=== PATIENT | female | born 1940 | race Caucasian/White ===

== ENCOUNTER 2016-05-24 18:01 | Inpatient (IN) | payer MEDICARE, BC ==
[2016-05-24] MEDS ORDERED: 0.9 % SODIUM CHLORIDE 1,000 ML BAG IV ONE (18:45)
[2016-05-24] MEDS ORDERED: ONDANSETRON HCL IV 4 MG/2 ML VIAL IVP ONE (18:46)
--- NOTE | 2016-05-24 19:01 | Emergency Department Record ---
History of Present Illness - General Chief complaint: Vomiting Stated complaint: VOMITING Time Seen by Provider: 05/24/16 18:45 Source: Patient, Family, EMS Mode of Arrival: EMS Limitations: No limitations - History of Present Illness Initial comments: pt has had intractable vomiting and abd pain since this am. she has vomited many times and now is vomiting bile. she has also had a fever and abd pain across her lower abd that is constant. other family members had si,ilar symptoms earlier in the week but they had no ap and they did have diarrhea. pt tried a compazine suppository but it did no good MD complaint: Abdominal pain, Nausea, Vomiting Onset/Timin -: Hour(s) Description of Vomiting: Bilious Associated Abdominal Pain: Yes Location: LLQ, RLQ, Diffuse Severity: Moderate Severity scale (1-10): 6 Quality: Aching, Constant Improves with: None Worsens with: Vomiting Context: Sick contacts Associated Symptoms: Fever/chills - Related Data Home Medications Medication Instructions Recorded Confirmed Last Taken Albuterol Sulfate [Proair Hfa] 1 - 2 puff IH .EVERY 4-6 HOURS PRN 05/01/1405/2405/24/16 Atorvastatin Calcium [Lipitor] 40 mg PO DAILY 05/01/14 05/24/16 05/24/16 Budesonide/Formoterol Fumarate 2 puff IH BID 05/01/14 05/24/16 05/24/16 [Symbicort 160-4.5 Mcg Inhaler] Insulin Glargine,Hum.rec.anlog 65 units SQ QAM 05/01/14 05/24/16 05/24/16 [Lantus Solostar] Levothyroxine Sodium [Synthroid] 175 mcg PO DAILYTHY 05/01/14 05/24/16 05/24/16 Lisinopril [Zestril] 20 mg PO DAILY 05/01/14 05/24/16 05/24/16 Nebivolol HCl [Bystolic] 20 mg PO BID 05/01/14 05/24/16 05/24/16 Ropinirole HCl 2 tab PO DAILY 05/01/14 05/24/16 05/24/16 Previous Rx's Medication Instructions Recorded Baclofen [Lioresal] 10 mg PO TID PRN #0 tab 03/05/16 Clopidogrel Bisulfate [Plavix] 75 mg PO DAILY tab 07/16/15 Oxycodone HCl/Acetaminophen 1 udtab PO QID #60 tablet 07/16/15 [Percocet 5mg/325mg] Allergies Allergy/AdvReac Type Severity Reaction Status Date / Time adenosine Allergy Intermediate HYPERSENSIT Verified 05/24/16 18:10 IVITY alprazolam [From XANAX] Allergy Intermediate RASH Verified 05/24/16 18:10 azithromycin [AZITHROMYCIN] Allergy Intermediate RASH Verified 05/24/16 18:10 cefaclor Allergy Intermediate RASH Verified 05/24/16 18:10 clonidine HCl [From CATAPRES] Allergy Intermediate RASH Verified 05/24/16 18:10 codeine [CODEINE] Allergy Intermediate RASH Verified 05/24/16 18:10 diclofenac sodium Allergy Intermediate RASH Verified 05/24/16 18:10 [From VOLTAREN] dipyridamole Allergy Intermediate RASH Verified 05/24/16 18:10 [From PERSANTINE] doxycycline calcium Allergy Intermediate RASH Verified 05/24/16 18:10 [From VIBRAMYCIN] doxycycline hyclate Allergy Intermediate RASH Verified 05/24/16 18:10 [From VIBRAMYCIN] doxycycline monohydrate Allergy Intermediate RASH Verified 05/24/16 18:10 [From VIBRAMYCIN] duloxetine HCl Allergy Intermediate HIVES Verified 05/24/16 18:10 [From CYMBALTA] estrogens, conjugated Allergy Intermediate HIVES Verified 05/24/16 18:10 [From PREMARIN] gabapentin [From NEURONTIN] Allergy Intermediate HIVES Verified 05/24/16 18:10 hydrocodone [HYDROCODONE] Allergy Intermediate HIVES Verified 05/24/16 18:10 lactose [LACTOSE] Allergy Intermediate HIVES Verified 05/24/16 18:10 pentoxifylline [From TRENTAL] Allergy Intermediate HIVES Verified 05/24/16 18:10 pregabalin [From LYRICA] Allergy Intermediate HIVES Verified 05/24/16 18:10 promethazine HCl Allergy Intermediate HIVES Verified 05/24/16 18:10 [From PHENERGAN] sulfamethoxazole Allergy Intermediate HIVES Verified 05/24/16 18:10 [From SEPTRA] tramadol HCl [From ULTRAM] Allergy Intermediate HIVES Verified 05/24/16 18:10 trimethoprim [From SEPTRA] Allergy Intermediate HIVES Verified 05/24/16 18:10 venlafaxine HCl Allergy Intermediate HIVES Verified 05/24/16 18:10 [From EFFEXOR] Travel Screening - Travel/Exposure Within Last 30 Days Have you traveled within the last 30 days?: No - Travel/Exposure Within Last Year Have you traveled outside the [place] in the last year?: No - Additonal Travel Details Have you been exposed to anyone with a communicable illness?: No - Travel Symptoms Symptom Screening: None Review of Systems Reviewed: No additional complaints except as noted below Constitutional: Reports: As per HPI. Denies: Chills, Fever, Malaise, Night sweats, Weakness, Weight change Eyes: Reports: As per HPI. Denies: Eye discharge, Eye pain, Photophobia, Vision change ENT: Reports: As per HPI. Denies: Congestion, Dental pain, Ear pain, Epistaxis , Hearing loss, Throat pain Respiratory: Reports: As per HPI. Denies: Cough, Dyspnea, Hemoptysis, Stridor, Wheezes Cardiovascular: Reports: As per HPI. Denies: Arrhythmia, Chest pain, Dyspnea on exertion, Edema, Murmurs, Orthopnea, Palpitations, Paroxysmal nocturnal dyspnea, Rheumatic Fever, Syncope Endocrine: Reports: As per HPI. Denies: Fatigue, Heat or cold intolerance, Polydipsia, Polyuria Gastrointestinal: Reports: As per HPI. Denies: Abdominal pain, Constipation, Diarrhea, Hematemesis, Hematochezia, Melena, Nausea, Vomiting Genitourinary: Reports: As per HPI. Denies: Abnormal menses, Discharge, Dyspareunia, Dysuria, Frequency, Hematuria, Incontinence, Retention, Urgency Musculoskeletal: Reports: As per HPI. Denies: Arthralgia, Back pain, Gout, Joint swelling, Myalgia, Neck pain Skin: Reports: As per HPI. Denies: Bruising, Change in color, Change in hair/ nails, Lesions, Pruritus, Rash Neurological: Reports: As per HPI. Denies: Abnormal gait, Confusion, Headache, Numbness, Paresthesias, Seizure, Tingling, Tremors, Vertigo, Weakness Psychiatric: Reports: As per HPI. Denies: Anxiety, Auditory hallucinations, Depression, Homicidal thoughts, Suicidal thoughts, Visual hallucinations Hematological/Lymphatic: Reports: As per HPI. Denies: Anemia, Blood Clots, Easy bleeding, Easy bruising, Swollen glands Past Medical History - SOCIAL HISTORY Smoking Status: Former smoker Alcohol Use: None Drug Use: None - RESPIRATORY Hx Respiratory Disorders: Yes Hx Asthma: Yes Hx Bronchitis: Yes Hx Dyspnea: Yes Hx Pneumonia: Yes Hx Pulmonary Embolism: Yes (x3) - CARDIOVASCULAR Hx Cardio Disorders: Yes Hx Abnormal EKG: Yes Hx Cardiac Cath: Yes Hx Chest Pain: Yes Hx CHF: Yes Hx Deep Vein Thrombosis: Yes (Legs, abd) Hx Heart Attack: Yes Hx Hypertension: Yes Hx Vascular Disease: Yes - NEURO Hx Neuro Disorders: Yes Hx TIA: Yes (x2) - GI Hx GI Disorders: Yes Hx GI Bleed: Yes Hx Reflux: Yes Hx Irritable Bowel: Yes Hx Rectal Bleeding: Yes - Hx Genitourinary Disorders: Yes Hx Bladder Problem: Yes Comment:: Renal stent bilat, left one is plugged - ENDOCRINE Hx Endocrine Disorders: Yes Hx Diabetes: Yes Hx Thyroid Disease: Yes - MUSCULOSKELETAL Hx Musculoskeletal Disorders: Yes Hx Arthritis: Yes - PSYCH Hx Psych Problems: Yes Hx Anxiety: Yes Hx Depression: Yes - HEMATOLOGY/ONCOLOGY Hx Hematology/Oncology Disorders: Yes Hx Anemia: Yes Family Medical History Any Significant Family History?: Yes Hx Cancer: Mother Hx Heart Disease: Father, Mother Hx HTN: Father, Mother Physical Exam - General General Appearance: Alert, Oriented x3, Cooperative, Mild distress - Head Head exam: Normal inspection - Eye Eye exam: Normal appearance, PERRL, EOMI Pupils: Normal accommodation - ENT ENT exam: Normal exam, Mucous membranes moist, Normal external ear exam, Normal orophraynx Ear exam: Normal external inspection. negative: External canal tenderness Nasal Exam: Normal inspection. negative: Discharge, Sinus tenderness Mouth exam: Normal external inspection, Tongue normal Teeth exam: Normal inspection. negative: Dental caries Throat exam: Normal inspection. negative: Tonsillar erythema, Tonsillar exudate - Neck Neck exam: Normal inspection, Full ROM. negative: Tenderness - Respiratory Respiratory exam: Normal lung sounds bilaterally. negative: Respiratory distress - Cardiovascular Cardiovascular Exam: Regular rate, Normal rhythm, Normal heart sounds - GI/Abdominal GI/Abdominal exam: Soft, Normal bowel sounds, Tenderness - Rectal Rectal exam: Deferred - exam: Deferred - Extremities Extremities exam: Normal inspection, Full ROM, Normal capillary refill. negative: Tenderness - Back Back exam: Reports: Normal inspection, Full ROM. Denies: Muscle spasm, Rash noted, Tenderness - Neurological Neurological exam: Alert, CN II-XII intact, Normal gait, Oriented X3 - Psychiatric Psychiatric exam: Normal affect, Normal mood - Skin Skin exam: Dry, Intact, Normal color, Warm Course Vital Signs 05/24/16 18:16 Temperature 100.5 F H Pulse Rate 76 Respiratory 20 Rate Blood Pressure 188/69 Pulse Ox 96 - Reevaluation(s) Reevaluation #1: 05/24/16 19:03 care turned over to dr flynn Medical Decision Making - Lab Data Result diagrams: 05/24/16 18:45 05/24/16 18:45 Disposition Forms: Patient Portal Access
[2016-05-24] MEDS ORDERED: ACETAMINOPHEN 325 MG TAB PO ONE (19:40)
[2016-05-24 19:45] LABS: HEMATOCRIT 36.4 % (35.0-47.0); HEMOGLOBIN 12.3 gm/dl (11.6-16.0); MEAN CELL VOLUME 89.9 fl (81-97); MEAN CORPUSCULAR HEMOGLOBIN 30.4 pg (27-33); MEAN CORPUSCULAR HGB CONC 33.8 g/dl (32-36); MEAN PLATELET VOLUME 11.5 fl (7.4-10.4); PLATELET COUNT 190 K/uL (130-400); RED BLOOD COUNT 4.05 M/uL (3.80-5.40); RED CELL DISTRIBUTION WIDTH 13.9 % (11.5-14.5); URINE APPEARANCE CLEAR; URINE BILIRUBIN NEGATIVE (NEGATIVE); URINE BLOOD SMALL (NEGATIVE); URINE COLOR YELLOW; URINE GLUCOSE (UA) NEGATIVE (NEGATIVE); URINE KETONE NEGATIVE (NEGATIVE); URINE LEUKOCYTE ESTERASE NEGATIVE (NEGATIVE); URINE NITRITE NEGATIVE (NEGATIVE); URINE UROBILINOGEN 0.2 E.U./dL (0.20 - 1.00); WHITE BLOOD COUNT W/O DIFF 5.9 K/uL (4.2-12.2)
[2016-05-24 19:52] LABS: URINE BACTERIA NONE SEEN; URINE EPITHELIAL CELLS NONE SEEN (FEW); URINE RBC 0 - 2 (NONE SEEN)
[2016-05-24 19:57] LABS: ALB/GLOB RATIO 1.3 (1.1-1.8); ALBUMIN 3.9 gm/dL (3.5-5.0); ALKALINE PHOSPHATASE 96 U/L (38-126); ALT/SGPT 22 U/L (9-52); ANION GAP 14.3 (7-16); AST/SGOT 22 U/L (14-36); BILIRUBIN,TOTAL 0.85 mg/dL (0.2-1.3); BLOOD UREA NITROGEN 15 mg/dL (7-17); CARBON DIOXIDE 21.7 mmol/L (22-30); CREATININE 0.8 mg/dL (0.52-1.04); EST GLOMERULAR FILTRATION RATE > 60 ml/min; GLUCOSE,RANDOM 173 mg/dL (70-110); LIPASE 11 U/L (23-300); TOTAL PROTEIN 6.8 gm/dL (6.3-8.2)
[2016-05-24 19:59] LABS: PLATELET ESTIMATE NORMAL (NORMAL)
[2016-05-24] MEDS ORDERED: LORAZEPAM 2 MG/ML VIAL IV ONE (20:08)
--- NOTE | 2016-05-24 20:11 | Emergency Department Record ---
History of Present Illness - General Chief complaint: Vomiting Stated complaint: VOMITING Time Seen by Provider: 05/24/16 18:45 Source: Patient, Family, EMS Mode of Arrival: EMS Limitations: No limitations - History of Present Illness MD complaint: Abdominal pain, Nausea, Vomiting Onset/Timin -: Hour(s) Description of Vomiting: Bilious Associated Abdominal Pain: Yes Location: LLQ, RLQ, Diffuse Severity: Moderate Severity scale (1-10): 6 Quality: Aching, Constant Improves with: None Worsens with: Vomiting Context: Sick contacts Associated Symptoms: Fever/chills - Related Data Home Medications Medication Instructions Recorded Confirmed Last Taken Albuterol Sulfate [Proair Hfa] 1 - 2 puff IH .EVERY 4-6 HOURS PRN 05/01/1405/2405/24/16 Atorvastatin Calcium [Lipitor] 40 mg PO DAILY 05/01/14 05/24/16 05/24/16 Budesonide/Formoterol Fumarate 2 puff IH BID 05/01/14 05/24/16 05/24/16 [Symbicort 160-4.5 Mcg Inhaler] Insulin Glargine,Hum.rec.anlog 65 units SQ QAM 05/01/14 05/24/16 05/24/16 [Lantus Solostar] Levothyroxine Sodium [Synthroid] 175 mcg PO DAILYTHY 05/01/14 05/24/16 05/24/16 Lisinopril [Zestril] 20 mg PO DAILY 05/01/14 05/24/16 05/24/16 Nebivolol HCl [Bystolic] 20 mg PO BID 05/01/14 05/24/16 05/24/16 Ropinirole HCl 2 tab PO DAILY 05/01/14 05/24/16 05/24/16 Previous Rx's Medication Instructions Recorded Baclofen [Lioresal] 10 mg PO TID PRN #0 tab 07/16/15 Clopidogrel Bisulfate [Plavix] 75 mg PO DAILY tab 07/16/15 Oxycodone HCl/Acetaminophen 1 udtab PO QID #60 tablet 07/16/15 [Percocet 5mg/325mg] Allergies Allergy/AdvReac Type Severity Reaction Status Date / Time adenosine Allergy Intermediate HYPERSENSIT Verified 05/24/16 18:10 IVITY alprazolam [From XANAX] Allergy Intermediate RASH Verified 05/24/16 18:10 azithromycin [AZITHROMYCIN] Allergy Intermediate RASH Verified 05/24/16 18:10 cefaclor Allergy Intermediate RASH Verified 05/24/16 18:10 clonidine HCl [From CATAPRES] Allergy Intermediate RASH Verified 05/24/16 18:10 codeine [CODEINE] Allergy Intermediate RASH Verified 05/24/16 18:10 diclofenac sodium Allergy Intermediate RASH Verified 05/24/16 18:10 [From VOLTAREN] dipyridamole Allergy Intermediate RASH Verified 05/24/16 18:10 [From PERSANTINE] doxycycline calcium Allergy Intermediate RASH Verified 05/24/16 18:10 [From VIBRAMYCIN] doxycycline hyclate Allergy Intermediate RASH Verified 05/24/16 18:10 [From VIBRAMYCIN] doxycycline monohydrate Allergy Intermediate RASH Verified 05/24/16 18:10 [From VIBRAMYCIN] duloxetine HCl Allergy Intermediate HIVES Verified 05/24/16 18:10 [From CYMBALTA] estrogens, conjugated Allergy Intermediate HIVES Verified 05/24/16 18:10 [From PREMARIN] gabapentin [From NEURONTIN] Allergy Intermediate HIVES Verified 05/24/16 18:10 hydrocodone [HYDROCODONE] Allergy Intermediate HIVES Verified 05/24/16 18:10 lactose [LACTOSE] Allergy Intermediate HIVES Verified 05/24/16 18:10 pentoxifylline [From TRENTAL] Allergy Intermediate HIVES Verified 05/24/16 18:10 pregabalin [From LYRICA] Allergy Intermediate HIVES Verified 05/24/16 18:10 promethazine HCl Allergy Intermediate HIVES Verified 05/24/16 18:10 [From PHENERGAN] sulfamethoxazole Allergy Intermediate HIVES Verified 05/24/16 18:10 [From SEPTRA] tramadol HCl [From ULTRAM] Allergy Intermediate HIVES Verified 05/24/16 18:10 trimethoprim [From SEPTRA] Allergy Intermediate HIVES Verified 05/24/16 18:10 venlafaxine HCl Allergy Intermediate HIVES Verified 05/24/16 18:10 [From EFFEXOR] Travel Screening - Travel/Exposure Within Last 30 Days Have you traveled within the last 30 days?: No - Travel/Exposure Within Last Year Have you traveled outside the [place] in the last year?: No - Additonal Travel Details Have you been exposed to anyone with a communicable illness?: No - Travel Symptoms Symptom Screening: None Review of Systems Constitutional: Reports: As per HPI. Denies: Chills, Fever, Malaise, Night sweats, Weakness, Weight change Eyes: Reports: As per HPI. Denies: Eye discharge, Eye pain, Photophobia, Vision change ENT: Reports: As per HPI. Denies: Congestion, Dental pain, Ear pain, Epistaxis , Hearing loss, Throat pain Respiratory: Reports: As per HPI. Denies: Cough, Dyspnea, Hemoptysis, Stridor, Wheezes Cardiovascular: Reports: As per HPI. Denies: Arrhythmia, Chest pain, Dyspnea on exertion, Edema, Murmurs, Orthopnea, Palpitations, Paroxysmal nocturnal dyspnea, Rheumatic Fever, Syncope Endocrine: Reports: As per HPI. Denies: Fatigue, Heat or cold intolerance, Polydipsia, Polyuria Gastrointestinal: Reports: As per HPI. Denies: Abdominal pain, Constipation, Diarrhea, Hematemesis, Hematochezia, Melena, Nausea, Vomiting Genitourinary: Reports: As per HPI. Denies: Abnormal menses, Discharge, Dyspareunia, Dysuria, Frequency, Hematuria, Incontinence, Retention, Urgency Musculoskeletal: Reports: As per HPI. Denies: Arthralgia, Back pain, Gout, Joint swelling, Myalgia, Neck pain Skin: Reports: As per HPI. Denies: Bruising, Change in color, Change in hair/ nails, Lesions, Pruritus, Rash Neurological: Reports: As per HPI. Denies: Abnormal gait, Confusion, Headache, Numbness, Paresthesias, Seizure, Tingling, Tremors, Vertigo, Weakness Psychiatric: Reports: As per HPI. Denies: Anxiety, Auditory hallucinations, Depression, Homicidal thoughts, Suicidal thoughts, Visual hallucinations Hematological/Lymphatic: Reports: As per HPI. Denies: Anemia, Blood Clots, Easy bleeding, Easy bruising, Swollen glands Past Medical History - SOCIAL HISTORY Smoking Status: Former smoker Alcohol Use: None Drug Use: None - RESPIRATORY Hx Respiratory Disorders: Yes Hx Asthma: Yes Hx Bronchitis: Yes Hx Dyspnea: Yes Hx Pneumonia: Yes Hx Pulmonary Embolism: Yes (x3) - CARDIOVASCULAR Hx Cardio Disorders: Yes Hx Abnormal EKG: Yes Hx Cardiac Cath: Yes Hx Chest Pain: Yes Hx CHF: Yes Hx Deep Vein Thrombosis: Yes (Legs, abd) Hx Heart Attack: Yes Hx Hypertension: Yes Hx Vascular Disease: Yes - NEURO Hx Neuro Disorders: Yes Hx TIA: Yes (x2) - GI Hx GI Disorders: Yes Hx GI Bleed: Yes Hx Reflux: Yes Hx Irritable Bowel: Yes Hx Rectal Bleeding: Yes - Hx Genitourinary Disorders: Yes Hx Bladder Problem: Yes Comment:: Renal stent bilat, left one is plugged - ENDOCRINE Hx Endocrine Disorders: Yes Hx Diabetes: Yes Hx Thyroid Disease: Yes - MUSCULOSKELETAL Hx Musculoskeletal Disorders: Yes Hx Arthritis: Yes - PSYCH Hx Psych Problems: Yes Hx Anxiety: Yes Hx Depression: Yes - HEMATOLOGY/ONCOLOGY Hx Hematology/Oncology Disorders: Yes Hx Anemia: Yes Family Medical History Any Significant Family History?: Yes Hx Cancer: Mother Hx Heart Disease: Father, Mother Hx HTN: Father, Mother Physical Exam - General Limitations: No limitations Course Vital Signs 05/24/16 05/24/16 05/24/16 18:16 19:06 19:39 Temperature 100.5 F H 100.8 F H 100.8 F H Pulse Rate 76 Pulse Rate [ 81 Pulse Ox Probe] Respiratory 20 20 Rate Blood Pressure 188/69 Blood Pressure 170/50 [Right Arm] Pulse Ox 96 93 L - Reevaluation(s) Reevaluation #1: The patient is feeling a little better at this time. She no longer is nauseated but is still having intermittent AP. On exam her abdomen is soft with mild diffuse tenderness in all 4 quads. There is no guarding or rebound. 05/24/16 20:10 Reevaluation #2: The patient is feeling a little better at this time. She denies any increased pain and states her nausea is improved. I did explain to her that her lab work and CT do not indicate any pathology which could be causing her issues. Due to her persistent pain and nausea I do feel she will need to stay in the hospital overnight. I did discuss the case with Ophelia BALDWIN) and she does accept the admission for Dr. Mercedes. 05/24/16 20:22 Medical Decision Making - Data Complexity MDM Data: Labs Ordered and/or Reviewed, X-Ray Ordered and/or Reviewed (CT: No acute intraabdominal pathology.) - Lab Data Result diagrams: 05/24/16 19:20 05/24/16 19:20 Lab Results 05/24/16 05/24/16 05/24/16 Range/Units 19:20 19:20 19:20 WBC 5.9 (4.2-12.2) K/uL RBC 4.05 (3.80-5.40) M/uL Hgb 12.3 (11.6-16.0) gm/dl Hct 36.4 (35.0-47.0) % MCV 89.9 (81-97) fl MCH 30.4 (27-33) pg MCHC 33.8 (32-36) g/dl RDW 13.9 (11.5-14.5) % Plt Count 190 (130-400) K/uL MPV 11.5 H (7.4-10.4) fl Neutrophils % 90.0 H (47-80) % Band Neutrophils % 2.0 (0-5) % Lymphocytes % 5.0 L (16-45) % Monocytes % 3.0 (0-9) % Eosinophils % Not Reportable Basophils % Not Reportable Platelet Estimate Normal (NORMAL) RBC Morphology Normal Sodium 134 L (136-145) mmol/L Potassium 4.0 (3.5-5.1) mmol/L Chloride 98 (98-107) mmol/L Carbon Dioxide 21.7 L (22-30) mmol/L Anion Gap 14.3 (7-16) BUN 15 (7-17) mg/dL Creatinine 0.8 (0.52-1.04) mg/dL Estimated GFR > 60 ml/min Random Glucose 173 H (70-110) mg/dL Lactic Acid (0.7-2.1) mmol/L Calcium 8.4 L (8.5-10.1) mg/dL Total Bilirubin 0.85 (0.2-1.3) mg/dL AST 22 (14-36) U/L ALT 22 (9-52) U/L Alkaline Phosphatase 96 (38-126) U/L Total Protein 6.8 (6.3-8.2) gm/dL Albumin 3.9 (3.5-5.0) gm/dL Globulin 2.9 (1.4-4.8) gm/dL Albumin/Globulin Ratio 1.3 (1.1-1.8) Lipase 11 L (23-300) U/L Urine Color Yellow Urine Appearance Clear Urine pH 5.5 (5.0-8.0) Ur Specific [place] >= 1.030 (1.002-1.030) Urine Protein 100 mg/dl H (NEGATIVE) Urine Glucose (UA) Negative (NEGATIVE) Urine Ketones Negative (NEGATIVE) Urine Blood Small H (NEGATIVE) Urine Nitrite Negative (NEGATIVE) Urine Bilirubin Negative (NEGATIVE) Urine Urobilinogen 0.2 (0.20 - 1.00) E.U./dL Ur Leukocyte Esterase Negative (NEGATIVE) Urine RBC 0 - 2 (NONE SEEN) Urine WBC 3 - 5 (0-2/hpf) Ur Epithelial Cells None seen (FEW) Urine Bacteria None seen 05/24/16 Range/Units 19:20 WBC (4.2-12.2) K/uL RBC (3.80-5.40) M/uL Hgb (11.6-16.0) gm/dl Hct (35.0-47.0) % MCV (81-97) fl MCH (27-33) pg MCHC (32-36) g/dl RDW (11.5-14.5) % Plt Count (130-400) K/uL MPV (7.4-10.4) fl Neutrophils % (47-80) % Band Neutrophils % (0-5) % Lymphocytes % (16-45) % Monocytes % (0-9) % Eosinophils % Basophils % Platelet Estimate (NORMAL) RBC Morphology Sodium (136-145) mmol/L Potassium (3.5-5.1) mmol/L Chloride (98-107) mmol/L Carbon Dioxide (22-30) mmol/L Anion Gap (7-16) BUN (7-17) mg/dL Creatinine (0.52-1.04) mg/dL Estimated GFR ml/min Random Glucose (70-110) mg/dL Lactic Acid 1.8 (0.7-2.1) mmol/L Calcium (8.5-10.1) mg/dL Total Bilirubin (0.2-1.3) mg/dL AST (14-36) U/L ALT (9-52) U/L Alkaline Phosphatase (38-126) U/L Total Protein (6.3-8.2) gm/dL Albumin (3.5-5.0) gm/dL Globulin (1.4-4.8) gm/dL Albumin/Globulin Ratio (1.1-1.8) Lipase (23-300) U/L Urine Color Urine Appearance Urine pH (5.0-8.0) Ur Specific [place] (1.002-1.030) Urine Protein (NEGATIVE) Urine Glucose (UA) (NEGATIVE) Urine Ketones (NEGATIVE) Urine Blood (NEGATIVE) Urine Nitrite (NEGATIVE) Urine Bilirubin (NEGATIVE) Urine Urobilinogen (0.20 - 1.00) E.U./dL Ur Leukocyte Esterase (NEGATIVE) Urine RBC (NONE SEEN) Urine WBC (0-2/hpf) Ur Epithelial Cells (FEW) Urine Bacteria Disposition Disposition: Admit Clinical Impression: Abdominal pain in female Vomiting Qualifiers: Vomiting type: unspecified Vomiting Intractability: intractable Nausea presence : with nausea Qualified Code(s): R11.2 - Nausea with vomiting, unspecified Disposition: Still a Patient at [facility] Decision to Admit: Admit from ER Decision to Admit Date: 05/24/16 Decision to Admit Time: 20:24 Accepting Physician: Mago Time Discussed w/Accepting Physician: 20:24 Condition: (2) Stable Forms: Patient Portal Access Time of Disposition: 20:24
[2016-05-24] MEDS ORDERED: ACETAMINOPHEN 500 MG TABLET PO PRN (20:55)
[2016-05-24] MEDS ORDERED: ONDANSETRON HCL IV 4 MG/2 ML VIAL IVP PRN (20:55)
[2016-05-24] MEDS ORDERED: ALBUTEROL HFA 8 GM INHALER INH PRN (20:55)
[2016-05-24] MEDS ORDERED: HYDROMORPHONE HCL 1 MG/ML CPJ IVP PRN (20:55)
[2016-05-24] MEDS ORDERED: NEBIVOLOL HCL 20 MG PO SCH (22:00)
[2016-05-24] MEDS: BACLOFEN 10 MG TABLET PO PRN (22:04)
[2016-05-24] MEDS: ROPINIROLE HCL 1 MG TABLET PO SCH (22:04)
[2016-05-24] MEDS: MONTELUKAST SODIUM 10MG TABLET PO SCH (22:05)
[2016-05-25] MEDS: 0.9 % SODIUM CHLORIDE 1000ML 1,000 ML IV PRN ×2 (01:00→12:21)
[2016-05-25] MEDS: ACETAMINOPHEN 325 MG TAB PO PRN ×3 (01:50→17:01)
[2016-05-25] MEDS: LORAZEPAM 2 MG/ML VIAL IV PRN (01:54)
[2016-05-25 06:34] LABS: HEMATOCRIT 34.3 % (35.0-47.0); HEMOGLOBIN 11.3 gm/dl (11.6-16.0); MEAN CORPUSCULAR HGB CONC 32.9 g/dl (32-36); MEAN PLATELET VOLUME 11.4 fl (7.4-10.4); PLATELET COUNT 158 K/uL (130-400); RED BLOOD COUNT 3.73 M/uL (3.80-5.40); RED CELL DISTRIBUTION WIDTH 14.1 % (11.5-14.5); WHITE BLOOD COUNT W/O DIFF 5.9 K/uL (4.2-12.2)
[2016-05-25 06:43] LABS: MEAN CORPUSCULAR HEMOGLOBIN 30.2 pg (27-33)
[2016-05-25 06:50] LABS: ANION GAP 12.2 (7-16); BLOOD UREA NITROGEN 18 mg/dL (7-17); CARBON DIOXIDE 22.8 mmol/L (22-30); CREATININE 0.9 mg/dL (0.52-1.04); EST GLOMERULAR FILTRATION RATE > 60 ml/min; GLUCOSE,RANDOM 177 mg/dL (70-110)
[2016-05-25 06:53] LABS: PLATELET ESTIMATE NORMAL (NORMAL)
--- NOTE | 2016-05-25 07:26 | CT SCAN REPORT ---
EXAM: ABDOMEN AND PELVIS CT WITHOUT IV CONTRAST HISTORY: VOMITING SINCE MIDNIGHT, GENERALIZED ABDOMINAL PAIN. TECHNIQUE: Contiguous axial images from the lung bases to the symphysis pubis were obtained without IV contrast. Comparison: Abdomen and pelvis CT 04/13/04. FINDINGS: The lung bases are clear. Evaluation of the solid abdominal visceral organs is compromised due to lack of IV contrast, however, the visualized liver and spleen are unremarkable. Unilocular cysts in the left kidney, the largest is in the upper pole measuring 6.3 cm. The right kidney is unremarkable. The adrenals and pancreas are normal. The gallbladder is surgically absent. The stomach is limited due to nondistention. The small bowel loops are of normal caliber with no bowel wall thickening. There is moderate fecal material throughout the colon with no colonic wall thickening or adjacent inflammation. There is a tiny ventral abdominal wall hernia just cephalad to the umbilicus containing a knuckle of transverse colon. No evidence of incarceration, strangulation or inflammation. The defect measures 11 mm. Severe aortoiliac calcification. Surgical clips in the retroperitoneum. Renal artery stents. No free intraperitoneal fluid or adenopathy. The uterus is absent. No pelvic mass. No lytic or blastic osseous lesion. IMPRESSION: 1. NO ACUTE INFLAMMATORY PROCESS OF THE ABDOMEN OR PELVIS. NO INTESTINAL OBSTRUCTION. 2. TINY VENTRAL ABDOMINAL WALL HERNIA JUST CEPHALAD TO THE UMBILICUS CONTAINING A KNUCKLE OF TRANSVERSE COLON WALL. NO INCARCERATION OR STRANGULATION. 3. SEVERE VASCULAR CALCIFICATION. JOB NUMBER: [id number] MTDD
[2016-05-25] MEDS: LEVOTHYROXINE SODIUM 175 MCG TABLET PO SCH (08:12)
[2016-05-25] MEDS: NEBIVOLOL 20 MG PO SCH ×2 (09:31→21:31)
[2016-05-25] MEDS: PANTOPRAZOLE SODIUM IV 40 MG VIAL IV SCH (09:32)
[2016-05-25] MEDS: LISINOPRIL 20 MG TABLET PO SCH (09:32)
[2016-05-25] MEDS: CLOPIDOGREL 75MG TABLET PO SCH (09:32)
[2016-05-25] MEDS ORDERED: ROPINIROLE HCL PO SCH (10:00)
[2016-05-25 13:24] LABS: INFLUENZA A NEGATIVE (NEGATIVE); INFLUENZA B NEGATIVE (NEGATIVE)
--- NOTE | 2016-05-25 13:25 | History & Physical ---
History of Present Illness - Date of Service Date of Service for History & Physical: 05/25/16 - History of Present Illness Admitting Diagnosis: 1. Nausea and intractable vomiting with Abdominal Pain. History of Present Illness: 76yo female with CC of vomiting with diffuse abdominal pain. She has history of CHF, T2DM, hypothyroidism, GERD, IBS, DVt, PE, on exterminator helper anticoagulation therapy, HLD, renal stenosis, CAD and peripheral artery disease. Patient presented to the ED with 2 days of nausea and vomiting. She developed some lower abdominal pain as well. She started to run a fever and was not able to keep any fluids down so her brought her to the ED. While in the ED, patient had improvement in nausea/vomiting with zofran and fever was improved with tylenol. Labs showed sodium slightly low at 134 but were otherwise unremarkable. CT abdomen showed small ventral hernia without any signs of obstruction, strangulation or incarceration. CT abdomen was otherwise normal. She was made NPO, started on IV normal saline, admitted for intractable vomiting. 05/26/16- Patient is feeling a little improved since admission. She has not had any further vomiting and her nausea is improved. She ran a fever last night but has not felt warm or chilled today. She continues to have some abdominal pain across her lower abdomen. She is not able to describe the pain but says it is not sharp. She has history of IBS and has followed with Dr. Felipe in the past. Was told at one point she had colitis found on colonoscopy. She reports a dry cough that started yesterday and has gotten worse today. The cough is dry and she denies nasal congestion, runny nose, sore throat or PND. She reports several family members having epsiodes of N/V/D and fever last week. She has not had any diarrhea but has been having normal stools. PCP: Cathryn Travel Screening - Travel/Exposure Within Last 30 Days Have you traveled within the last 30 days?: No - Travel/Exposure Within Last Year Have you traveled outside the [place] in the last year?: No - Additonal Travel Details Have you been exposed to anyone with a communicable illness?: No - Travel Symptoms Symptom Screening: Vomiting, Lack of Appetite Review of Systems Constitutional: Reports: Chills, Fever. Denies: Malaise, Night sweats, Weakness , Weight change Eyes: Denies: Eye discharge, Eye pain, Photophobia, Vision change ENT: Denies: Congestion, Dental pain, Ear pain, Epistaxis, Hearing loss, Throat pain Respiratory: Reports: Cough. Denies: Dyspnea, Hemoptysis, Stridor, Wheezes Cardiovascular: Denies: Arrhythmia, Chest pain, Dyspnea on exertion, Edema, Murmurs, Orthopnea, Palpitations, Paroxysmal nocturnal dyspnea, Rheumatic Fever , Syncope Endocrine: Denies: Fatigue, Heat or cold intolerance, Polydipsia, Polyuria Gastrointestinal: Reports: Abdominal pain, Nausea, Vomiting. Denies: Constipation, Diarrhea, Hematemesis, Hematochezia, Melena Genitourinary: Denies: Abnormal menses, Discharge, Dyspareunia, Dysuria, Frequency, Hematuria, Incontinence, Retention, Urgency Musculoskeletal: Denies: Arthralgia, Back pain, Gout, Joint swelling, Myalgia, Neck pain Skin: Denies: Bruising, Change in color, Change in hair/nails, Lesions, Pruritus , Rash Neurological: Denies: Abnormal gait, Confusion, Headache, Numbness, Paresthesias , Seizure, Tingling, Tremors, Vertigo, Weakness Psychiatric: Denies: Anxiety, Auditory hallucinations, Depression, Homicidal thoughts, Suicidal thoughts, Visual hallucinations Hematological/Lymphatic: Reports: Blood Clots. Denies: Anemia, Easy bleeding, Easy bruising, Swollen glands Past Medical History - SOCIAL HISTORY Smoking Status: Former smoker Alcohol Use: None Drug Use: None - RESPIRATORY Hx Respiratory Disorders: Yes Hx Asthma: Yes Hx Bronchitis: Yes Hx Dyspnea: Yes Hx Pneumonia: Yes Hx Pulmonary Embolism: Yes (x3) - CARDIOVASCULAR Hx Cardio Disorders: Yes Hx Abnormal EKG: Yes Hx Cardiac Cath: Yes Hx Chest Pain: Yes Hx CHF: Yes (2 years ago) Hx Deep Vein Thrombosis: Yes (Legs, abdomen) Hx Edema: Yes (lymphedema of bilateral LE, wears compression stockings) Hx Heart Attack: Yes Hx Hypertension: Yes Hx Pacemaker/Defib: Yes Hx Vascular Disease: Yes - NEURO Hx Neuro Disorders: Yes Hx Neuropathy: Yes Hx TIA: Yes (x2) - GI Hx GI Disorders: Yes Hx GI Bleed: Yes Hx Reflux: Yes Hx Irritable Bowel: Yes Hx Rectal Bleeding: Yes - Hx Genitourinary Disorders: Yes Hx Bladder Problem: Yes Comment:: Renal stent bilat, left one is plugged - ENDOCRINE Hx Endocrine Disorders: Yes Hx Diabetes: Yes Hx Thyroid Disease: Yes - MUSCULOSKELETAL Hx Musculoskeletal Disorders: Yes Hx Arthritis: Yes Comment:: restless leg syndrome - PSYCH Hx Psych Problems: Yes Hx Anxiety: Yes Hx Depression: Yes - HEMATOLOGY/ONCOLOGY Hx Hematology/Oncology Disorders: Yes Hx Anemia: Yes Family Medical History Any Significant Family History?: Yes Hx Cancer: Mother Hx Heart Disease: Father, Mother Hx HTN: Father, Mother H&P Meds/Allergies - Allergies Allergies: Allergies Allergy/AdvReac Type Severity Reaction Status Date / Time adenosine Allergy Intermediate HYPERSENSIT Verified 05/24/16 18:10 IVITY alprazolam [From XANAX] Allergy Intermediate RASH Verified 05/24/16 18:10 azithromycin [AZITHROMYCIN] Allergy Intermediate RASH Verified 05/24/16 18:10 cefaclor Allergy Intermediate RASH Verified 05/24/16 18:10 clonidine HCl [From CATAPRES] Allergy Intermediate RASH Verified 05/24/16 18:10 codeine [CODEINE] Allergy Intermediate RASH Verified 05/24/16 18:10 diclofenac sodium Allergy Intermediate RASH Verified 05/24/16 18:10 [From VOLTAREN] dipyridamole Allergy Intermediate RASH Verified 05/24/16 18:10 [From PERSANTINE] doxycycline calcium Allergy Intermediate RASH Verified 05/24/16 18:10 [From VIBRAMYCIN] doxycycline hyclate Allergy Intermediate RASH Verified 05/24/16 18:10 [From VIBRAMYCIN] doxycycline monohydrate Allergy Intermediate RASH Verified 05/24/16 18:10 [From VIBRAMYCIN] duloxetine HCl Allergy Intermediate HIVES Verified 05/24/16 18:10 [From CYMBALTA] estrogens, conjugated Allergy Intermediate HIVES Verified 05/24/16 18:10 [From PREMARIN] gabapentin [From NEURONTIN] Allergy Intermediate HIVES Verified 05/24/16 18:10 hydrocodone [HYDROCODONE] Allergy Intermediate HIVES Verified 05/24/16 18:10 lactose [LACTOSE] Allergy Intermediate HIVES Verified 05/24/16 18:10 pentoxifylline [From TRENTAL] Allergy Intermediate HIVES Verified 05/24/16 18:10 pregabalin [From LYRICA] Allergy Intermediate HIVES Verified 05/24/16 18:10 promethazine HCl Allergy Intermediate HIVES Verified 05/24/16 18:10 [From PHENERGAN] sulfamethoxazole Allergy Intermediate HIVES Verified 05/24/16 18:10 [From SEPTRA] tramadol HCl [From ULTRAM] Allergy Intermediate HIVES Verified 05/24/16 18:10 trimethoprim [From SEPTRA] Allergy Intermediate HIVES Verified 05/24/16 18:10 venlafaxine HCl Allergy Intermediate HIVES Verified 05/24/16 18:10 [From EFFEXOR] - Home Medications Home Medications Medication Instructions Recorded Confirmed Last Taken Albuterol Sulfate [Proair Hfa] 1 - 2 puff IH .EVERY 4-6 HOURS PRN 05/01/1405/2405/24/16 Atorvastatin Calcium [Lipitor] 40 mg PO DAILY 05/01/14 05/24/16 05/24/16 Budesonide/Formoterol Fumarate 2 puff IH BID 05/01/14 05/24/16 05/24/16 [Symbicort 160-4.5 Mcg Inhaler] Insulin Glargine,Hum.rec.anlog 65 units SQ QAM 05/01/14 05/24/16 05/24/16 [Lantus Solostar] Levothyroxine Sodium [Synthroid] 175 mcg PO DAILYTHY 05/01/14 05/24/16 05/24/16 Lisinopril [Zestril] 20 mg PO DAILY 05/01/14 05/24/16 05/24/16 Nebivolol HCl [Bystolic] 20 mg PO BID 05/01/14 05/24/16 05/24/16 Ropinirole HCl 2 tab PO QHS 05/01/14 05/24/16 05/24/16 Montelukast Sodium [Singulair] 10 mg PO QHS 05/24/16 05/24/16 05/22/16 22:00 10 Previous Rx's Medication Instructions Recorded Baclofen [Lioresal] 10 mg PO TID PRN #0 tab 07/16/15 Clopidogrel Bisulfate [Plavix] 75 mg PO DAILY tab 07/16/15 Oxycodone HCl/Acetaminophen 1 udtab PO QID #60 tablet 07/16/15 [Percocet 5mg/325mg] - Active Medications Active Medications: Current Medications Acetaminophen (Tylenol 325mg) 650 mg PO Q6H PRN PRN Reason: TEMP/PAIN Last Admin: 05/25/16 09:33 Dose: 650 mg Albuterol Sulfate (Ventolin Hfa) 2 puff INH Q4H PRN PRN Reason: DIFFICULTY IN BREATHING Baclofen (Lioresal) 10 mg PO TID PRN PRN Reason: Spasms Last Admin: 05/24/16 22:04 Dose: 10 mg Clopidogrel Bisulfate (Plavix) 75 mg PO DAILY [facility] Last Admin: 05/25/16 09:32 Dose: 75 mg Hydromorphone HCl (Dilaudid) 0.5 mg IVP Q4H PRN PRN Reason: Analgesia Last Admin: 05/24/16 22:34 Dose: 0.5 mg Sodium Chloride () 1,000 mls @ 100 mls/hr IV .Q10H PRN PRN Reason: LARGE VOLUME IV Last Admin: 05/25/16 12:21 Dose: 100 mls/hr Insulin Detemir (Levemir Flextouch) 65 unit SQ 1400 [facility] Levothyroxine Sodium (Synthroid) 175 mcg PO DAILYTHY [facility] Last Admin: 05/25/16 08:12 Dose: 175 mcg Lisinopril (Zestril) 20 mg PO DAILY [facility] Last Admin: 05/25/16 09:32 Dose: 20 mg Lorazepam (Ativan) 1 mg IV Q8H PRN PRN Reason: ANXIETY Last Admin: 05/25/16 01:54 Dose: 1 mg Montelukast Sodium (Singulair) 10 mg PO QHS [facility] Last Admin: 05/24/16 22:05 Dose: Not Given Ondansetron HCl (Zofran) 4 mg IVP Q4H PRN PRN Reason: NAUSEA Pantoprazole Sodium (Protonix Iv) 40 mg IV DAILY [facility] Last Admin: 05/25/16 09:32 Dose: 40 mg Patient Own Med: Nebivolol 20 Mg ( Bystolic) 1 each PO BID [facility] Last Admin: 05/25/16 09:31 Dose: 1 each Ropinirole HCl (Requip) 2 mg PO QHS [facility] Last Admin: 05/24/16 22:04 Dose: 2 mg Physical Exam - Vital Signs Vital Signs: Vital Signs - Last 24 Hrs Temp Pulse Resp BP Pulse Ox 05/25/16 09:50 20 05/25/16 09:00 99.5 F 65 20 195/82 94 L 05/25/16 05:30 98.1 F 64 20 173/67 95 05/25/16 03:55 99.7 F H 05/25/16 03:00 101.3 F H 05/25/16 01:50 102.1 F H 05/25/16 01:00 101.6 F H 05/24/16 23:56 100.3 F H 05/24/16 22:55 100.8 F H 64 20 155/53 95 05/24/16 20:55 99.0 F 76 20 166/71 95 - General General Appearance: Alert, Oriented x3, Cooperative, No acute distress Limitations: No limitations - Head Head exam: Normal inspection - Eye Eye exam: Normal appearance, PERRL, EOMI Pupils: Normal accommodation - ENT ENT exam: Normal exam, Mucous membranes moist, Normal external ear exam, Normal orophraynx Ear exam: Normal external inspection. negative: External canal tenderness Nasal Exam: Normal inspection. negative: Discharge, Sinus tenderness Mouth exam: Normal external inspection, Tongue normal Teeth exam: Normal inspection. negative: Dental caries Throat exam: Normal inspection. negative: Tonsillar erythema, Tonsillar exudate - Neck Neck exam: Normal inspection, Full ROM. negative: Tenderness - Respiratory Respiratory exam: Normal lung sounds bilaterally. negative: Respiratory distress, Wheezes - Cardiovascular Cardiovascular Exam: Regular rate, Normal rhythm, Normal heart sounds Peripheral Pulses: 2+: Radial (R), Radial (L), Dorsalis Pedis (R), Dorsalis Pedis (L) - GI/Abdominal GI/Abdominal exam: Soft, Normal bowel sounds, Tenderness (mildly TTP LLQ and RLQ ). negative: Distended - Rectal Rectal exam: Deferred - exam: Deferred - Extremities Extremities exam: Normal inspection, Full ROM, Normal capillary refill. negative: Tenderness - Back Back exam: Reports: Normal inspection, Full ROM. Denies: Muscle spasm, Rash noted, Tenderness - Neurological Neurological exam: Alert, CN II-XII intact, Normal gait, Oriented X3 - Psychiatric Psychiatric exam: Normal affect, Normal mood - Skin Skin exam: Dry, Intact, Normal color, Warm Results - Labs Result Diagrams: 05/26/16 06:24 05/26/16 10:24 Labs Last 24 Hours: Laboratory Results - last 24 hr 05/25/16 05/25/16 05/25/16 06:00 06:00 06:00 WBC 5.9 RBC 3.73 L Hgb 11.3 L Hct 34.3 L MCV 92.0 MCH 30.2 MCHC 32.9 RDW 14.1 Plt Count 158 MPV 11.4 H Neutrophils % 90.0 H Lymphocytes % 5.0 L Monocytes % 5.0 Eosinophils % Not Reportable Basophils % Not Reportable Platelet Estimate Normal RBC Morphology Normal Sodium 134 L Potassium 4.0 Chloride 99 Carbon Dioxide 22.8 Anion Gap 12.2 BUN 18 H Creatinine 0.9 Estimated GFR > 60 Random Glucose 177 H Calcium 7.9 L Lipase < 10 L - Imaging and Cardiology CT scan - abdomen Status: Report reviewed (small ventral hernia not strangulated, incarcerated or obstructing) VTE H&P Assessment - Risk for VTE Risk for VTE: No Risk Level: Very Low Risk Assessment Date: 05/25/16 Risk Assessment Time: 11:00 VTE Orders Placed or Will Be Placed: No VTE Reason for No Prophylaxis: Not Indicated (on longterm anticoagulation) Plan - Detailed Diagnosis and Plan (1) Vomiting Current Visit: Yes Status: Acute Qualifiers: Vomiting type: unspecified Vomiting Intractability: intractable Nausea presence: with nausea Qualified Code(s): R11.2 - Nausea with vomiting , unspecified Base Code: R11.10 - VOMITING, UNSPECIFIED Comment: 05/25/16- Improved with zofran. Suspect viral gastroenteritis with history of family members having similar issues this week. CTA was negative for an acute process. -Will advance to clear liquids -continue gentle IV hydration with NS run at 75cc/hr with CHF until oral intake has improved -continue zofran 4mg IVP q4H prn vomiting (2) Abdominal pain Current Visit: Yes Status: Acute Qualifiers: Abdominal location: lower abdomen, unspecified Qualified Code(s): R10.30 - Lower abdominal pain, unspecified Base Code: R10.9 - UNSPECIFIED ABDOMINAL PAIN Comment: 05/25/16- Stable. CTA showed small ventral hernia but was otherwise negative for an acute process. Will consult GI, Dr. Menjivar, with possible history of ischemic colitis and significant history of peripheral arterial disease. -will advance diet to clear liquid and monitor for worsening pain -Will continue dilaudid 1mg IV q4H prn severe pain (3) Cough Current Visit: Yes Status: Acute Base Code: R05 - COUGH Comment: 05/25/16- Patient is now reporting dry cough without SOB or TERRENCE. -Will get CXR with temp of 102 over night -blood cultures obtained and pending -influenza panel pending (4) Fever Current Visit: Yes Status: Acute Qualifiers: Fever type: unspecified Qualified Code(s): R50.9 - Fever, unspecified Base Code: R50.9 - FEVER, UNSPECIFIED Comment: 05/25/16- Tmax of 102.1 upon last night improved with tylenol. Suspect viral gastroenteritis. -blood cultures obtained -will order influenza -will get CXR with new onset cough -continue tylenol PO Q4H prn fever (5) CHF (congestive heart failure) Current Visit: No Status: Acute Qualifiers: Congestive heart failure type: unspecified congestive heart failure type Congestive heart failure chronicity: acute on chronic Qualified Code(s): I50.9 - Heart failure, unspecified Base Code: I50.9 - HEART FAILURE, UNSPECIFIED Comment: 05/25/16- Stable. No evidence of fluid overload. -obtain weight daily -continue home medications (6) T2DM (type 2 diabetes mellitus) Current Visit: Yes Status: Acute Qualifiers: Diabetes mellitus complication status: without complication Diabetes mellitus longterm insulin use: with exterminator helper use Qualified Code(s): E11.9 - Type 2 diabetes mellitus without complications; Z79.4 - long term acute care registered nurse ( current) use of insulin Base Code: E11.9 - TYPE 2 DIABETES MELLITUS WITHOUT COMPLICATIONS Comment: 05/25/16- Stable. Will continue home medications and accucheck BID (7) DVT prophylaxis Current Visit: Yes Status: Acute Base Code: [id number] - Comment: 05/25/16- Patient is currently on Plavix daily and has filter placed. -will encourage frequent ambulation -will add SCD's while in bed (8) Full code status Current Visit: Yes Status: Acute Base Code: Z78.9 - OTHER SPECIFIED HEALTH STATUS Comment: 05/25/16- Patient is full code
[2016-05-25] MEDS ORDERED: LEVEMIR FLEXTOUCH 100 UNIT/ML INSULIN PEN SQ SCH (14:00)
[2016-05-25] MEDS: BENZONATATE 100 MG CAPSULE PO PRN (14:24)
[2016-05-25] MEDS: MONTELUKAST SODIUM 10MG TABLET PO SCH (21:31)
[2016-05-25] MEDS: ROPINIROLE HCL 1 MG TABLET PO SCH (21:31)
[2016-05-25] MEDS ORDERED: 0.9 % SODIUM CHLORIDE 1000ML 1,000 ML IV PRN (22:46)
[2016-05-26] MEDS: LEVOTHYROXINE SODIUM 175 MCG TABLET PO SCH (06:05)
[2016-05-26 06:37] LABS: BASO % 0.2 % (0-6); EOS % 1.2 % (0-6); GRAN % 73.6 % (47-80); HEMATOCRIT 33.9 % (35.0-47.0); HEMOGLOBIN 11.6 gm/dl (11.6-16.0); LYMPH % 13.6 % (16-45); MEAN CELL VOLUME 92.9 fl (81-97); MEAN CORPUSCULAR HGB CONC 34.2 g/dl (32-36); MEAN PLATELET VOLUME 11.8 fl (7.4-10.4); MONO % 11.4 % (0-9); PLATELET COUNT 131 K/uL (130-400); RED BLOOD COUNT 3.65 M/uL (3.80-5.40); RED CELL DISTRIBUTION WIDTH 14.1 % (11.5-14.5); WHITE BLOOD COUNT W/O DIFF 4.9 K/uL (4.2-12.2)
[2016-05-26 06:39] LABS: MEAN CORPUSCULAR HEMOGLOBIN 31.7 pg (27-33)
[2016-05-26] MEDS: CLOPIDOGREL 75MG TABLET PO SCH ×2 (08:09→09:55)
[2016-05-26] MEDS: LISINOPRIL 20 MG TABLET PO SCH ×2 (08:10→09:55)
[2016-05-26] MEDS: PANTOPRAZOLE SODIUM IV 40 MG VIAL IV SCH ×2 (08:10→09:55)
[2016-05-26] MEDS: NEBIVOLOL 20 MG PO SCH ×3 (08:11→21:45)
[2016-05-26 10:39] LABS: ALB/GLOB RATIO 1.2 (1.1-1.8); ALBUMIN 3.4 gm/dL (3.5-5.0); ALKALINE PHOSPHATASE 99 U/L (38-126); ALT/SGPT 41 U/L (9-52); ANION GAP 10.3 (7-16); AST/SGOT 43 U/L (14-36); BILIRUBIN,TOTAL 0.66 mg/dL (0.2-1.3); BLOOD UREA NITROGEN 17 mg/dL (7-17); CARBON DIOXIDE 23.7 mmol/L (22-30); CREATININE 0.7 mg/dL (0.52-1.04); EST GLOMERULAR FILTRATION RATE > 60 ml/min; GLUCOSE,RANDOM 118 mg/dL (70-110); TOTAL PROTEIN 6.3 gm/dL (6.3-8.2)
[2016-05-26] MEDS: LORAZEPAM 2 MG/ML VIAL IV PRN ×2 (11:48→23:13)
[2016-05-26] MEDS: ACETAMINOPHEN 325 MG TAB PO PRN ×2 (11:56→21:43)
[2016-05-26] MEDS: BENZONATATE 100 MG CAPSULE PO PRN (11:56)
--- NOTE | 2016-05-26 12:02 | Physician Progress Note ---
Subjective - Date Date of Physician Progress Note: 05/26/16 - Subjective Subjective Comment: Patient feeling about the same as yesterday. Has not had any more vomiting and nausea is improved. Tolerating her clear liquid diet without worsening abdominal pain. Pain in the lower abdomen has resolved but now having some soreness in the upper abdomen. She had a normal BM last night without blood. She continue to feel somewhat warm and then chilled at times and reports some generalized aches. She says her cough improved with the tessalon perles. She has not had any mucus production, SOB, or TERRENCE. Objective - Vital Signs Vital Signs: Vital Signs - Last 24 Hrs Temp Pulse Resp BP BP Pulse Ox 05/26/16 10:00 98.2 F 64 18 157/67 96 05/26/16 06:13 56 L 20 154/88 98 05/26/16 05:00 97.6 F 53 L 20 202/93 94 L 05/26/16 00:26 97.8 F 56 L 20 189/84 95 05/25/16 21:00 52 L 20 05/25/16 20:00 98.2 F 52 L 20 157/69 94 L 05/25/16 17:00 97.1 F L 57 L 18 185/64 91 L 05/25/16 13:00 97.7 F 61 18 151/76 96 - General General Appearance: Alert, Oriented x3, Cooperative, No acute distress Limitations: No limitations - Head Head exam: Normal inspection - Eye Eye exam: Normal appearance, PERRL, EOMI Pupils: Normal accommodation - ENT ENT exam: Normal exam, Mucous membranes moist, Normal external ear exam, Normal orophraynx Ear exam: Normal external inspection. negative: External canal tenderness Nasal Exam: Normal inspection. negative: Discharge, Sinus tenderness Mouth exam: Normal external inspection, Tongue normal Teeth exam: Normal inspection. negative: Dental caries Throat exam: Normal inspection. negative: Tonsillar erythema, Tonsillar exudate - Neck Neck exam: Normal inspection, Full ROM. negative: Tenderness - Respiratory Respiratory exam: Normal lung sounds bilaterally. negative: Respiratory distress, Wheezes - Cardiovascular Cardiovascular Exam: Regular rate, Normal rhythm, Normal heart sounds Peripheral Pulses: 2+: Radial (R), Radial (L), Dorsalis Pedis (R), Dorsalis Pedis (L) - GI/Abdominal GI/Abdominal exam: Soft, Normal bowel sounds. negative: Distended, Tenderness - Rectal Rectal exam: Deferred - exam: Deferred - Extremities Extremities exam: Normal inspection, Full ROM, Normal capillary refill. negative: Tenderness - Back Back exam: Reports: Normal inspection, Full ROM. Denies: Muscle spasm, Rash noted, Tenderness - Neurological Neurological exam: Alert, CN II-XII intact, Normal gait, Oriented X3 - Psychiatric Psychiatric exam: Normal affect, Normal mood - Skin Skin exam: Dry, Intact, Normal color, Warm Assessment and Plan - Assessment and Plan (1) Vomiting Current Visit: Yes Status: Acute Qualifiers: Vomiting type: unspecified Vomiting Intractability: intractable Nausea presence: with nausea Qualified Code(s): R11.2 - Nausea with vomiting , unspecified Base Code: R11.10 - VOMITING, UNSPECIFIED Comment: 05/26/16- Resolved. Patient has not had any further emesis since coming to the floor. Tolerating clear liquids. Suspect viral gastroenteritis with history of family members having similar issues this week. CTA was negative for an acute process. Labs are unremarkable. -Will advance to full liquid diet -will saline lock as she is having adequate po intake of fluids now. -continue zofran 4mg IVP q4H prn vomiting (2) Abdominal pain Current Visit: Yes Status: Acute Qualifiers: Abdominal location: lower abdomen, unspecified Qualified Code(s): R10.30 - Lower abdominal pain, unspecified Base Code: R10.9 - UNSPECIFIED ABDOMINAL PAIN Comment: 05/26/16- Improved. CTA showed small ventral hernia but was otherwise negative for an acute process. Dr. Menjivar evaluated patient. recommends continuing to advance diet as tolerating. suspect the generalized abdominal soreness she is reporting is 2/2 vomiting. -will advance diet to full liquid and monitor for worsening pain -Will continue dilaudid 1mg IV q4H prn severe pain (3) Cough Current Visit: Yes Status: Acute Base Code: R05 - COUGH Comment: 05/26/16- Improved. Influenza panel was negative. CXr negative for acute process. WBC count wnl range. Patient denies SOB, TERRENCE and cough remains non-productive. Suspect viral etiology. -Will continue supportive care with rest, hydration, and tessalon perles as needed for cough suppression -blood cultures obtained and pending (4) Fever Current Visit: Yes Status: Acute Qualifiers: Fever type: unspecified Qualified Code(s): R50.9 - Fever, unspecified Base Code: R50.9 - FEVER, UNSPECIFIED Comment: 05/26/16- Resolved. WBC count remains within normal range. Influenza and CXR negative. Suspect viral gastroenteritis. -blood cultures still pending -continue tylenol PO Q4H prn fever (5) CHF (congestive heart failure) Current Visit: No Status: Acute Qualifiers: Congestive heart failure type: unspecified congestive heart failure type Congestive heart failure chronicity: acute on chronic Qualified Code(s): I50.9 - Heart failure, unspecified Base Code: I50.9 - HEART FAILURE, UNSPECIFIED Comment: 05/26/16- Stable. No evidence of fluid overload. 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 Glucose of 39 improved to 109 following juice administration. Likely due to decreased PO intake over the past 24H. -Decrease levemir to 45 units this afternoon -Continue BID accu checks and prn (7) DVT prophylaxis Current Visit: Yes Status: Acute Base Code: [id number] - Comment: 05/26/16- Patient is currently on Plavix daily and has filter placed. -will encourage frequent ambulation -will add SCD's while in bed (8) Full code status Current Visit: Yes Status: Acute Base Code: Z78.9 - OTHER SPECIFIED HEALTH STATUS Comment: 05/26/16- Patient is full code Results - Labs Result Diagrams: 05/26/16 06:24 05/26/16 10:24 Labs Last 24 Hours: Laboratory Results - last 24 hr 05/25/16 05/25/16 05/26/16 13:05 17:00 06:24 WBC 4.9 RBC 3.65 L Hgb 11.6 Hct 33.9 L MCV 92.9 MCH 31.7 MCHC 34.2 RDW 14.1 Plt Count 131 MPV 11.8 H Gran % 73.6 Lymphocytes % 13.6 L Monocytes % 11.4 H Eosinophils % 1.2 Basophils % 0.2 Sodium Potassium Chloride Carbon Dioxide Anion Gap BUN Creatinine Estimated GFR POC Glucose 114 H Random Glucose Calcium Total Bilirubin AST ALT Alkaline Phosphatase Total Protein Albumin Globulin Albumin/Globulin Ratio Influenza Type A Ag Negative Influenza Type B Ag Negative 05/26/16 05/26/16 05/26/16 07:45 08:10 09:05 WBC RBC Hgb Hct MCV MCH MCHC RDW Plt Count MPV Gran % Lymphocytes % Monocytes % Eosinophils % Basophils % Sodium Potassium Chloride Carbon Dioxide Anion Gap BUN Creatinine Estimated GFR POC Glucose 39 L* 42 L* 67 L Random Glucose Calcium Total Bilirubin AST ALT Alkaline Phosphatase Total Protein Albumin Globulin Albumin/Globulin Ratio Influenza Type A Ag Influenza Type B Ag 05/26/16 10:24 WBC RBC Hgb Hct MCV MCH MCHC RDW Plt Count MPV Gran % Lymphocytes % Monocytes % Eosinophils % Basophils % Sodium 136 Potassium 4.2 Chloride 102 Carbon Dioxide 23.7 Anion Gap 10.3 BUN 17 Creatinine 0.7 Estimated GFR > 60 POC Glucose Random Glucose 118 H Calcium 8.5 Total Bilirubin 0.66 AST 43 H ALT 41 Alkaline Phosphatase 99 Total Protein 6.3 Albumin 3.4 L Globulin 2.9 Albumin/Globulin Ratio 1.2 Influenza Type A Ag Influenza Type B Ag DVT/PE Assessment - Risk for VTE Risk for VTE: No Risk Level: Very Low Risk Assessment Date: 05/25/16 Risk Assessment Time: 11:00 VTE Orders Placed or Will Be Placed: No VTE Reason for No Prophylaxis: Not Indicated (on penitentiary anticoagulation) - Active Medicaitons Current Medications: Current Medications Acetaminophen (Tylenol 325mg) 650 mg PO Q6H PRN PRN Reason: TEMP/PAIN Last Admin: 05/25/16 17:01 Dose: 650 mg Albuterol Sulfate (Ventolin Hfa) 2 puff INH Q4H PRN PRN Reason: DIFFICULTY IN BREATHING Baclofen (Lioresal) 10 mg PO TID PRN PRN Reason: Spasms Last Admin: 05/24/16 22:04 Dose: 10 mg Benzonatate (Tessalon) 200 mg PO TID PRN PRN Reason: COUGH Last Admin: 05/25/16 14:24 Dose: 200 mg Clopidogrel Bisulfate (Plavix) 75 mg PO DAILY [facility] Last Admin: 05/26/16 09:55 Dose: Not Given Hydromorphone HCl (Dilaudid) 0.5 mg IVP Q4H PRN PRN Reason: Analgesia Last Admin: 05/24/16 22:34 Dose: 0.5 mg Insulin Detemir (Levemir Flextouch) 45 unit SQ 1400 [facility] Levothyroxine Sodium (Synthroid) 175 mcg PO DAILYTHY [facility] Last Admin: 05/26/16 06:05 Dose: 175 mcg Lisinopril (Zestril) 20 mg PO DAILY [facility] Last Admin: 05/26/16 09:55 Dose: Not Given Lorazepam (Ativan) 1 mg IV Q8H PRN PRN Reason: ANXIETY Last Admin: 05/26/16 11:48 Dose: 1 mg Montelukast Sodium (Singulair) 10 mg PO QHS [facility] Last Admin: 05/25/16 21:31 Dose: 10 mg Ondansetron HCl (Zofran) 4 mg IVP Q4H PRN PRN Reason: NAUSEA Pantoprazole Sodium (Protonix Iv) 40 mg IV DAILY [facility] Last Admin: 05/26/16 09:55 Dose: Not Given Patient Own Med: Nebivolol 20 Mg ( Bystolic) 1 each PO BID [facility] Last Admin: 05/26/16 09:55 Dose: Not Given Ropinirole HCl (Requip) 2 mg PO QHS [facility] Last Admin: 05/25/16 21:31 Dose: 2 mg AMI Plan - Labs Result Diagrams: 05/26/16 06:24 05/26/16 10:24
[2016-05-26] MEDS: LEVEMIR FLEXTOUCH 100 UNIT/ML INSULIN PEN SQ SCH (15:00)
[2016-05-26] MEDS ORDERED: NYSTATIN 15 GM TUBE TOP PRN (18:32)
[2016-05-26] MEDS: MONTELUKAST SODIUM 10MG TABLET PO SCH (21:43)
[2016-05-26] MEDS: BACLOFEN 10 MG TABLET PO PRN (21:44)
[2016-05-26] MEDS: ROPINIROLE HCL 1 MG TABLET PO SCH (21:45)
[2016-05-26] MEDS ORDERED: LISINOPRIL 20 MG TABLET PO ONE (22:00)
[2016-05-27] MEDS: LEVOTHYROXINE SODIUM 175 MCG TABLET PO SCH (06:09)
[2016-05-27 06:31] LABS: BASO % 0.4 % (0-6); EOS % 2.7 % (0-6); GRAN % 68.1 % (47-80); HEMOGLOBIN 11.7 gm/dl (11.6-16.0); LYMPH % 17.1 % (16-45); MEAN CELL VOLUME 90.9 fl (81-97); MEAN CORPUSCULAR HEMOGLOBIN 30.4 pg (27-33); MEAN CORPUSCULAR HGB CONC 33.4 g/dl (32-36); MEAN PLATELET VOLUME 11.7 fl (7.4-10.4); MONO % 11.7 % (0-9); PLATELET COUNT 173 K/uL (130-400); RED BLOOD COUNT 3.85 M/uL (3.80-5.40); RED CELL DISTRIBUTION WIDTH 13.7 % (11.5-14.5); WHITE BLOOD COUNT W/O DIFF 4.8 K/uL (4.2-12.2)
[2016-05-27 06:34] LABS: ALB/GLOB RATIO 1.3 (1.1-1.8); ALBUMIN 3.5 gm/dL (3.5-5.0); ALKALINE PHOSPHATASE 104 U/L (38-126); ALT/SGPT 51 U/L (9-52); ANION GAP 12.2 (7-16); AST/SGOT 57 U/L (14-36); BILIRUBIN,TOTAL 0.76 mg/dL (0.2-1.3); BLOOD UREA NITROGEN 13 mg/dL (7-17); CARBON DIOXIDE 19.8 mmol/L (22-30); CREATININE 0.7 mg/dL (0.52-1.04); EST GLOMERULAR FILTRATION RATE > 60 ml/min; GLUCOSE,RANDOM 168 mg/dL (70-110); TOTAL PROTEIN 6.2 gm/dL (6.3-8.2)
[2016-05-27] MEDS: NEBIVOLOL 20 MG PO SCH (09:27)
[2016-05-27] MEDS: CLOPIDOGREL 75MG TABLET PO SCH (09:27)
[2016-05-27] MEDS: PANTOPRAZOLE SODIUM IV 40 MG VIAL IV SCH (09:38)
[2016-05-27] MEDS: LISINOPRIL 20 MG TABLET PO SCH (09:42)
[2016-05-27] MEDS ORDERED: NYSTATIN 15 GM POWDER TP PRN (13:57)
--- NOTE | 2016-05-27 14:10 | Discharge Summary ---
Providers Discharge Summary Date: 05/27/16 Date of admission: 05/24/16 20:43 Expected Date of Discharge: 05/27/16 Attending physician: SEBASTIAN DO Primary care physician: Sola Lockett Consults: Consult Orders 05/25/16 14:29 Consult NOW Consulting Provider: NUNU STEPHENS Physician Instructions: Reason For Exam: abdominal pain; history of ischemic colitis Physical Exam - Vital Signs Vital Signs: Vital Signs - Last 24 Hrs Temp Pulse Resp BP Pulse Ox 05/27/16 09:31 98.5 F 60 18 164/79 98 05/27/16 08:20 20 05/27/16 06:59 57 L 20 208/89 96 05/27/16 05:00 97.9 F 58 L 20 209/100 95 05/26/16 23:02 98.0 F 60 20 198/79 95 05/26/16 21:00 62 20 05/26/16 20:15 98.1 F 62 20 200/87 95 05/26/16 17:25 165/106 05/26/16 16:45 98.1 F 61 18 201/79 95 - General General Appearance: Alert, Oriented x3, Cooperative, No acute distress Limitations: No limitations - Head Head exam: Normal inspection - Eye Eye exam: Normal appearance, PERRL, EOMI Pupils: Normal accommodation - ENT ENT exam: Normal exam, Mucous membranes moist, Normal external ear exam, Normal orophraynx Ear exam: Normal external inspection. negative: External canal tenderness Nasal Exam: Normal inspection. negative: Discharge, Sinus tenderness Mouth exam: Normal external inspection, Tongue normal Teeth exam: Normal inspection. negative: Dental caries Throat exam: Normal inspection. negative: Tonsillar erythema, Tonsillar exudate - Neck Neck exam: Normal inspection, Full ROM. negative: Tenderness - Respiratory Respiratory exam: Normal lung sounds bilaterally. negative: Respiratory distress, Wheezes - Cardiovascular Cardiovascular Exam: Regular rate, Normal rhythm, Normal heart sounds Peripheral Pulses: 2+: Radial (R), Radial (L), Dorsalis Pedis (R), Dorsalis Pedis (L) - GI/Abdominal GI/Abdominal exam: Soft, Normal bowel sounds. negative: Distended, Tenderness - Rectal Rectal exam: Deferred - exam: Deferred - Extremities Extremities exam: Normal inspection, Full ROM, Normal capillary refill. negative: Tenderness - Back Back exam: Reports: Normal inspection, Full ROM. Denies: Muscle spasm, Rash noted, Tenderness - Neurological Neurological exam: Alert, CN II-XII intact, Normal gait, Oriented X3 - Psychiatric Psychiatric exam: Normal affect, Normal mood - Skin Skin exam: Dry, Intact, Normal color, Warm Hospitalization - Hospitalization Admission Diagnosis: 1. Nausea and intractable vomiting with Abdominal Pain. - Problem List/Discharge Diagnosis (1) Vomiting Status: Acute Discharge Diagnosis: Vomiting type: unspecified Vomiting Intractability: intractable Nausea presence: with nausea Qualified Code(s): R11.2 - Nausea with vomiting , unspecified Base Code: R11.10 - VOMITING, UNSPECIFIED Comment: 05/27/16- Resolved. Patient has not had any further emesis since coming to the floor. Tolerating bland diet. Suspect viral gastroenteritis with history of family members having similar issues this week. CTA was negative for an acute process. Labs are unremarkable. -Will have her continue to advance diet as tolerating -She has follow up appointment with PCP on (2) Abdominal pain Status: Acute Discharge Diagnosis: Abdominal location: lower abdomen, unspecified Qualified Code(s): R10.30 - Lower abdominal pain, unspecified Base Code: R10.9 - UNSPECIFIED ABDOMINAL PAIN Comment: 05/27/16- Improved. CTA showed small ventral hernia but was otherwise negative for an acute process. Dr. Stephens evaluated patient. recommends continuing to advance diet as tolerating. suspect the generalized abdominal soreness she is reporting is 2/2 vomiting. -will have patient continue to advance diet as tolerating and return if any worsening of her abdominal pain. (3) Cough Status: Acute Base Code: R05 - COUGH Comment: 05/27/16- Improved. Influenza panel was negative. CXr negative for acute process. WBC count wnl range. Suspect viral etiology. -Will continue supportive care with rest, hydration. (4) Fever Status: Acute Discharge Diagnosis: Fever type: unspecified Qualified Code(s): R50.9 - Fever, unspecified Base Code: R50.9 - FEVER, UNSPECIFIED Comment: 05/27/16- Resolved. WBC count remains within normal range. Influenza and CXR negative. Suspect viral gastroenteritis. blood cultures showed no growth. (5) CHF (congestive heart failure) Status: Acute Discharge Diagnosis: Congestive heart failure type: unspecified congestive heart failure type Congestive heart failure chronicity: acute on chronic Qualified Code(s ): I50.9 - Heart failure, unspecified Base Code: I50.9 - HEART FAILURE, UNSPECIFIED Comment: 05/27/16- Stable. No evidence of fluid overload. -continue home medications (6) T2DM (type 2 diabetes mellitus) Status: Acute Discharge Diagnosis: Diabetes mellitus complication status: without complication Diabetes mellitus assisted insulin use: with termite helper use Qualified Code(s): E11.9 - Type 2 diabetes mellitus without complications; Z79.4 - skilled nursing ( current) use of insulin Base Code: E11.9 - TYPE 2 DIABETES MELLITUS WITHOUT COMPLICATIONS Comment: 05/27/16- Stable. Blood sugar has improved with improved oral intake of foods. -Will have patient continue levemir 45 units until she has advanced her diet back to her norm. She will continue to check her blood sugar at home and follow up with her PCP as previously scheduled this . (7) DVT prophylaxis Status: Acute Base Code: [id number] - Comment: 05/27/16- Patient is currently on Plavix daily and has filter placed. -will encourage frequent ambulation -will add SCD's while in bed (8) Full code status Status: Acute Base Code: Z78.9 - OTHER SPECIFIED HEALTH STATUS Comment: 05/27/16- Patient is full code - Hospitalization Course Disposition: Home, Self-Care Hospital Course: 76yo female with CC of vomiting with diffuse abdominal pain. She has history of CHF, T2DM, hypothyroidism, GERD, IBS, DVt, PE, on termite helper anticoagulation therapy, HLD, renal stenosis, CAD and peripheral artery disease. Patient presented to the ED with 2 days of nausea and vomiting. She developed some lower abdominal pain as well. She started to run a fever and was not able to keep any fluids down so her brought her to the ED. While in the ED, patient had improvement in nausea/vomiting with zofran and fever was improved with tylenol. Labs showed sodium slightly low at 134 but were otherwise unremarkable. CT abdomen showed small ventral hernia without any signs of obstruction, strangulation or incarceration. CT abdomen was otherwise normal. She was made NPO, started on IV normal saline, admitted for intractable vomiting. 05/25/16- Patient is feeling a little improved since admission. She has not had any further vomiting and her nausea is improved. She ran a fever last night but has not felt warm or chilled today. She continues to have some abdominal pain across her lower abdomen. She is not able to describe the pain but says it is not sharp. She has history of IBS and has followed with Dr. Felipe in the past. Was told at one point she had colitis found on colonoscopy. She reports a dry cough that started yesterday and has gotten worse today. The cough is dry and she denies nasal congestion, runny nose, sore throat or PND. She reports several family members having epsiodes of N/V/D and fever last week. She has not had any diarrhea but has been having normal stools. 05/26/16- Patient feeling about the same as yesterday. Has not had any more vomiting and nausea is improved. Tolerating her clear liquid diet without worsening abdominal pain. Pain in the lower abdomen has resolved but now having some soreness in the upper abdomen. She had a normal BM last night without blood. She continue to feel somewhat warm and then chilled at times and reports some generalized aches. She says her cough improved with the tessalon perles. She has not had any mucus production, SOB, or TERRENCE. 05/27/16- Patient states she is doing better today. She has been tolerating her bland diet without any emesis or nausea. She is still reporting some mild soreness throughout her upper abdomen but improved from when she came in. She has not had a BM today. Her cough is improved she says and she continues to deny shortness of breath. She is feeling anxious to get home. She denies chest pain, lower extremity swelling, feeling warm, chilled. She has an appointment with Dr. Jeff on Saturday and her PCP on of this week. Procedures: Imaging and X-Rays 05/25/16 12:54 CHEST 2 VIEWS [RAD] Stat Abnormal Labs: Abnormal Lab Results 05/25/16 05/25/16 05/25/16 Range/Units 06:00 06:00 06:00 RBC 3.73 L (3.80-5.40) M/uL Hgb 11.3 L (11.6-16.0) gm/dl Hct 34.3 L (35.0-47.0) % MPV 11.4 H (7.4-10.4) fl Neutrophils % 90.0 H (47-80) % Lymphocytes % 5.0 L (16-45) % Monocytes % (0-9) % Sodium 134 L (136-145) mmol/L Carbon Dioxide (22-30) mmol/L BUN 18 H (7-17) mg/dL POC Glucose (70-110) mg/dL Random Glucose 177 H (70-110) mg/dL Calcium 7.9 L (8.5-10.1) mg/dL AST (14-36) U/L Total Protein (6.3-8.2) gm/dL Albumin (3.5-5.0) gm/dL Lipase < 10 L (23-300) U/L 05/25/16 05/26/16 05/26/16 Range/Units 17:00 06:24 07:45 RBC 3.65 L (3.80-5.40) M/uL Hgb (11.6-16.0) gm/dl Hct 33.9 L (35.0-47.0) % MPV 11.8 H (7.4-10.4) fl Neutrophils % (47-80) % Lymphocytes % 13.6 L (16-45) % Monocytes % 11.4 H (0-9) % Sodium (136-145) mmol/L Carbon Dioxide (22-30) mmol/L BUN (7-17) mg/dL POC Glucose 114 H 39 L* (70-110) mg/dL Random Glucose (70-110) mg/dL Calcium (8.5-10.1) mg/dL AST (14-36) U/L Total Protein (6.3-8.2) gm/dL Albumin (3.5-5.0) gm/dL Lipase (23-300) U/L 05/26/16 05/26/16 05/26/16 Range/Units 08:10 09:05 10:24 RBC (3.80-5.40) M/uL Hgb (11.6-16.0) gm/dl Hct (35.0-47.0) % MPV (7.4-10.4) fl Neutrophils % (47-80) % Lymphocytes % (16-45) % Monocytes % (0-9) % Sodium (136-145) mmol/L Carbon Dioxide (22-30) mmol/L BUN (7-17) mg/dL POC Glucose 42 L* 67 L (70-110) mg/dL Random Glucose 118 H (70-110) mg/dL Calcium (8.5-10.1) mg/dL AST 43 H (14-36) U/L Total Protein (6.3-8.2) gm/dL Albumin 3.4 L (3.5-5.0) gm/dL Lipase (23-300) U/L 05/26/16 05/26/16 05/27/16 Range/Units 11:45 21:00 06:05 RBC (3.80-5.40) M/uL Hgb (11.6-16.0) gm/dl Hct (35.0-47.0) % MPV 11.7 H (7.4-10.4) fl Neutrophils % (47-80) % Lymphocytes % (16-45) % Monocytes % 11.7 H (0-9) % Sodium (136-145) mmol/L Carbon Dioxide (22-30) mmol/L BUN (7-17) mg/dL POC Glucose 133 H 205 H (70-110) mg/dL Random Glucose (70-110) mg/dL Calcium (8.5-10.1) mg/dL AST (14-36) U/L Total Protein (6.3-8.2) gm/dL Albumin (3.5-5.0) gm/dL Lipase (23-300) U/L 05/27/16 05/27/16 Range/Units 06:05 11:40 RBC (3.80-5.40) M/uL Hgb (11.6-16.0) gm/dl Hct (35.0-47.0) % MPV (7.4-10.4) fl Neutrophils % (47-80) % Lymphocytes % (16-45) % Monocytes % (0-9) % Sodium 135 L (136-145) mmol/L Carbon Dioxide 19.8 L (22-30) mmol/L BUN (7-17) mg/dL POC Glucose 150 H (70-110) mg/dL Random Glucose 168 H (70-110) mg/dL Calcium (8.5-10.1) mg/dL AST 57 H (14-36) U/L Total Protein 6.2 L (6.3-8.2) gm/dL Albumin (3.5-5.0) gm/dL Lipase (23-300) U/L Condition at Discharge: (2) Stable Discharge Medications - Discharge Medications Home Medications: Ambulatory Orders Albuterol Sulfate [Proair Hfa] 1 - 2 puff IH .EVERY 4-6 HOURS PRN 05/01/14 [ Last Taken 05/24/16] Atorvastatin Calcium [Lipitor] 40 mg PO DAILY 05/01/14 [Last Taken 05/24/16] Budesonide/Formoterol Fumarate [Symbicort 160-4.5 Mcg Inhaler] 2 puff IH BID [Last Taken 05/24/16] Insulin Glargine,Hum.rec.anlog [Lantus Solostar] 65 units SQ QAM 05/01/14 [Last Taken 05/24/16] Levothyroxine Sodium [Synthroid] 175 mcg PO DAILYTHY 05/01/14 [Last Taken ] Lisinopril [Zestril] 20 mg PO DAILY 05/01/14 [Last Taken 05/24/16] Nebivolol HCl [Bystolic] 20 mg PO BID 05/01/14 [Last Taken 05/24/16] Ropinirole HCl 2 tab PO QHS 05/01/14 [Last Taken 05/24/16] Baclofen [Lioresal] 10 mg PO TID PRN #0 tab 07/16/15 [Last Taken 05/24/16] Clopidogrel Bisulfate [Plavix] 75 mg PO DAILY tab 07/16/15 [Last Taken 05/24/16 ] Oxycodone HCl/Acetaminophen [Percocet 5mg/325mg] 1 udtab PO QID #60 tablet 07/15 [Last Taken 05/24/16] Montelukast Sodium [Singulair] 10 mg PO QHS 05/24/16 [Last Taken 05/22/16 22:00 10] Nystatin 15 gm TOP ASDIR PRN #0 cream 05/27/16 [Last Taken Unknown] Discharge Plan - Discharge Instructions Activity at Discharge: Resume Usual Activities As Tolerated Diet at Discharge: Advance to Usual Diet, Diabetic Diet Instructions: Nystatin (On the skin), Acute Nausea and Vomiting (DC), Acute Abdominal Pain (DC) Additional Instructions: 2 Activity: Resume Usual Activities As Tolerated 2 Diet: Advance to Usual Diet Diabetic Diet 2 Consults: [] 2 Follow Up: [Follow up with Dr. Lockett at scheduled appointment on ] 2 Dressing/Wound Care: Apply Nystatin cream then powder to create a caking on reddened areas. talk with Dr. Lockett about continuing regimen. (Type) (Change) 2 Additional: [] Continue home medications Continue taking medications as previously prescribed, do not increase lisinopril until follow up with Dr. Lockett on If you have any symptoms of your blood pressure being elevated, chest pain, difficulty in breathing please return to the emergency room for further workup.
[2016-05-27] MEDS: ACETAMINOPHEN 325 MG TAB PO PRN (14:16)
[2016-05-27] MEDS: LEVEMIR FLEXTOUCH 100 UNIT/ML INSULIN PEN SQ SCH (14:23)
[2016-05-27] MEDS ORDERED: HYDRALAZINE HCL 10 MG TABLET PO ONE (15:47)
[2016-05-28] MEDS ORDERED: PANTOPRAZOLE SODIUM 40 MG TABLET PO SCH (07:00)
--- NOTE | 2016-05-28 08:05 | RADIOLOGY REPORT ---
EXAM: CHEST, TWO VIEWS HISTORY: DRY COUGH FOR ONE DAY. TECHNIQUE: Upright PA and lateral views of the chest were obtained. Comparison: Two view chest radiographic examination dated 07/14/15. FINDINGS: The heart projects borderline to mildly enlarged. The pulmonary vasculature is near the upper limits of normal in caliber. No confluent air space opacity is seen nor is there costophrenic angle blunting or pneumothorax. Minimal linear scarring versus atelectasis is again suggested in the lateral right lung base. There are degenerative changes scattered within the visualized spine. The thoracic aorta is mildly tortuous and atherosclerotic. IMPRESSION: BORDERLINE TO MILD CARDIOMEGALY WITHOUT GROSS PULMONARY VENOUS HYPERTENSION. NO EVIDENCE OF AN ACUTE PULMONARY PROCESS. JOB NUMBER: [id number] AND [id number] [facility]
--- NOTE | 2016-05-28 11:53 | Medical Records Consult ---
DATE OF CONSULTATION: 05/25/2016 REQUESTING PROVIDER: Ophelia Aldana P.A.-C. REASON FOR CONSULTATION: Abdominal pain. HISTORY OF PRESENTING ILLNESS: This is a 76-year-old female who has had a history of ischemic colitis. She presented to the hospital with complaints of intermittent episodes of lower sided abdominal pain over many years with complaints of worsening pains with no relation to food. She has had associated occasional nausea and vomiting. She denies any fever or any chills. She also denies any blood or mucus in the stool. She has had a past history of ischemic colitis but denies any current episodes of diarrhea as such. REVIEW OF SYSTEMS: A 12-point systemic review was done and is documented in her chart. PAST MEDICAL HISTORY: Her past medical history is significant for chronic obstructive pulmonary disease, pneumonia, pulmonary embolism, congestive heart failure, deep venous thrombosis, myocardial infarction, hypertension, and stroke. PHYSICAL EXAMINATION: General: Reveals a pleasant female lying in bed in no apparent distress. Vital Signs: Vital signs show that blood pressure is 170/84. Heart rate is 60. Respirations are 18. HEENT: She is not pale or jaundiced. Oral mucosa is dry with no ulceration. Nonicteric sclerae. Neck: The neck is supple. No palpable lymph nodes or thyromegaly. Lungs: Lungs are clear to auscultation bilaterally with no wheezes or rales. Heart: The heart S1, S2. No gallop or murmur. Abdomen: The abdomen is soft. It is diffusely tender but no rebound. There are no palpable masses or organomegaly. Bowel sounds are present, normoactive. Extremities: No edema, cyanosis or clubbing. Neurologic: She is alert and oriented x3. No focal deficit grossly. DIAGNOSTIC DATA: She had a CT scan of the abdomen and pelvis which showed no acute process. No acute process with severe vascular calcifications. LABORATORY DATA: She had a complete blood count done which showed a white blood cell count of 5.9, hemoglobin of 11.3, and platelet count of 158,000. Sodium was 134, potassium was 4.0, chloride was 99. C02 was 22.8, BUN was 18, creatinine was 0.9. Serum lipase was less than 10. IMPRESSION: My impression is one of an elderly female with a history of recurrent abdominal pain most likely related to vascular disease. However, one cannot rule out any irritable bowel syndrome. RECOMMENDATIONS: 1. At this point I think it is prudent to increase her fiber intake to at least 25 gm a day with adequate fluid intake. 2. She may need antispasmodic as needed. Thank you for allowing me to participate in the care of your patient. I would be happy to see her back in the office upon discharge. Gino Menjivar M.D. Date Time Job Number: [id number] MTDD
== END 2016-05-27 17:15 | disposition home or self-care (01) | DRG 392 ==
LOC: ER 18:01 → MEDSURG 20:43 → OBSVTOIN 20:55 → INTOOBSV 20:55 → OBSVTOIN 05-27 13:52
PROVIDERS: ADMIT Family Medicine; ATTEND Family Medicine
DX: R10.0 Acute abdomen (principal); R11.2 Nausea with vomiting, unspecified; I50.9 Heart failure, unspecified; E11.9 Type 2 diabetes mellitus without complications; Z86.718 Personal history of other venous thrombosis and embolism; Z79.01 Long term (current) use of anticoagulants; I70.1 Atherosclerosis of renal artery; I73.9 Peripheral vascular disease, unspecified; Z79.4 Long term (current) use of insulin; E03.9 Hypothyroidism, unspecified; I10 Essential (primary) hypertension
CPT/HCPCS: 99285 ×2; 94760; 96374; 96375; 96361; 83605; 83690 ×2; 85025 ×2; 80048; 80053 ×3; 36416 ×9; 81001; 82948 ×9; 87040 ×2; 87400; 85027 ×2; 71020; 74176; 94761; G0378 ×52; J3490 ×5; J2405; J2060 ×4; J1170; J1815; 99220; 99226; 99239; C9113; J7030

== ENCOUNTER 2016-08-13 11:21 | Emergency (ER) | payer MEDICARE, BC ==
[2016-08-13] MEDS ORDERED: 0.9 % SODIUM CHLORIDE 1,000 ML BAG IV ONE (11:34)
--- NOTE | 2016-08-13 11:34 | Emergency Department Record ---
History of Present Illness - General Chief Complaint: Shortness of breath Stated Complaint: SOB Time Seen by Provider: 08/13/16 11:27 Source: Patient, RN notes reviewed - Related Data Home Medications Medication Instructions Recorded Confirmed Last Taken Albuterol Sulfate [Proair Hfa] 1 - 2 puff IH .EVERY 4-6 HOURS PRN 05/01/1408/1308/12/16 Atorvastatin Calcium [Lipitor] 40 mg PO DAILY 05/01/14 08/13/16 08/12/16 Budesonide/Formoterol Fumarate 2 puff IH BID 05/01/14 08/13/16 08/12/16 [Symbicort 160-4.5 Mcg Inhaler] Insulin Glargine,Hum.rec.anlog 65 units SQ QAM 05/01/14 08/13/16 08/12/16 [Lantus Solostar] Levothyroxine Sodium [Synthroid] 175 mcg PO DAILYTHY 05/01/14 08/13/16 08/13/16 Lisinopril [Zestril] 20 mg PO DAILY 05/01/14 08/13/16 08/12/16 Nebivolol HCl [Bystolic] 20 mg PO BID 05/01/14 08/13/16 08/12/16 Ropinirole HCl 2 tab PO QHS 05/01/14 08/13/16 08/12/16 Montelukast Sodium [Singulair] 10 mg PO QHS 05/24/16 08/13/16 08/12/16 Ethacrynic Acid [Edecrin] 100 mg PO DAILY 08/13/16 08/13/16 1 Day Ago Isosorbide Mononitrate [Imdur] 30 mg PO DAILY 08/13/16 08/13/16 08/13/16 Previous Rx's Medication Instructions Recorded Baclofen [Lioresal] 10 mg PO TID PRN #0 tab 07/16/15 Clopidogrel Bisulfate [Plavix] 75 mg PO DAILY tab 07/16/15 Oxycodone HCl/Acetaminophen 1 udtab PO QID #60 tablet 07/16/15 [Percocet 5mg/325mg] Allergies Allergy/AdvReac Type Severity Reaction Status Date / Time adenosine Allergy Intermediate HYPERSENSIT Verified 05/24/16 18:10 IVITY alprazolam [From XANAX] Allergy Intermediate RASH Verified 05/24/16 18:10 azithromycin [AZITHROMYCIN] Allergy Intermediate RASH Verified 05/24/16 18:10 cefaclor Allergy Intermediate RASH Verified 05/24/16 18:10 clonidine HCl [From CATAPRES] Allergy Intermediate RASH Verified 05/24/16 18:10 codeine [CODEINE] Allergy Intermediate RASH Verified 05/24/16 18:10 diclofenac sodium Allergy Intermediate RASH Verified 05/24/16 18:10 [From VOLTAREN] dipyridamole Allergy Intermediate RASH Verified 05/24/16 18:10 [From PERSANTINE] doxycycline calcium Allergy Intermediate RASH Verified 05/24/16 18:10 [From VIBRAMYCIN] doxycycline hyclate Allergy Intermediate RASH Verified 05/24/16 18:10 [From VIBRAMYCIN] doxycycline monohydrate Allergy Intermediate RASH Verified 05/24/16 18:10 [From VIBRAMYCIN] duloxetine HCl Allergy Intermediate HIVES Verified 05/24/16 18:10 [From CYMBALTA] estrogens, conjugated Allergy Intermediate HIVES Verified 05/24/16 18:10 [From PREMARIN] gabapentin [From NEURONTIN] Allergy Intermediate HIVES Verified 05/24/16 18:10 hydrocodone [HYDROCODONE] Allergy Intermediate HIVES Verified 05/24/16 18:10 lactose [LACTOSE] Allergy Intermediate HIVES Verified 05/24/16 18:10 pentoxifylline [From TRENTAL] Allergy Intermediate HIVES Verified 05/24/16 18:10 pregabalin [From LYRICA] Allergy Intermediate HIVES Verified 05/24/16 18:10 promethazine HCl Allergy Intermediate HIVES Verified 05/24/16 18:10 [From PHENERGAN] sulfamethoxazole Allergy Intermediate HIVES Verified 05/24/16 18:10 [From SEPTRA] tramadol HCl [From ULTRAM] Allergy Intermediate HIVES Verified 05/24/16 18:10 trimethoprim [From SEPTRA] Allergy Intermediate HIVES Verified 05/24/16 18:10 venlafaxine HCl Allergy Intermediate HIVES Verified 05/24/16 18:10 [From EFFEXOR] Past Medical History - SOCIAL HISTORY Smoking Status: Former smoker Drug Use: None - RESPIRATORY Hx Respiratory Disorders: Yes Hx Asthma: Yes Hx Bronchitis: Yes Hx Dyspnea: Yes Hx Pneumonia: Yes Hx Pulmonary Embolism: Yes (x3) - CARDIOVASCULAR Hx Cardio Disorders: Yes Hx Abnormal EKG: Yes Hx Cardiac Cath: Yes Hx Chest Pain: Yes Hx CHF: Yes (2 years ago) Hx Deep Vein Thrombosis: Yes (Legs, abdomen) Hx Edema: Yes (lymphedema of bilateral LE, wears compression stockings) Hx Heart Attack: Yes Hx Hypertension: Yes Hx Pacemaker/Defib: Yes Hx Vascular Disease: Yes - NEURO Hx Neuro Disorders: Yes Hx Neuropathy: Yes Hx TIA: Yes (x2) - GI Hx GI Disorders: Yes Hx GI Bleed: Yes Hx Reflux: Yes Hx Irritable Bowel: Yes Hx Rectal Bleeding: Yes - Hx Genitourinary Disorders: Yes Hx Bladder Problem: Yes Comment:: Renal stent bilat, left one is plugged - ENDOCRINE Hx Endocrine Disorders: Yes Hx Diabetes: Yes Hx Thyroid Disease: Yes - MUSCULOSKELETAL Hx Musculoskeletal Disorders: Yes Hx Arthritis: Yes Comment:: restless leg syndrome - PSYCH Hx Psych Problems: Yes Hx Anxiety: Yes Hx Depression: Yes - HEMATOLOGY/ONCOLOGY Hx Hematology/Oncology Disorders: Yes Hx Anemia: Yes Family Medical History Hx Cancer: Mother Hx Heart Disease: Father, Mother Hx HTN: Father, Mother Medical Decision Making - Lab Data Result diagrams: 08/13/16 12:00 08/13/16 12:00 Disposition Clinical Impression: GI bleed, Anticoagulated on Coumadin, History of CHF (congestive heart failure) Disposition: Acute Care Hospital Transfer Condition: (2) Stable Forms: Patient Portal Access
[2016-08-13] MEDS ORDERED: ASPIRIN 81 MG CHEWABLE TABLET PO ONE (11:43)
--- NOTE | 2016-08-13 11:59 | Emergency Department Record ---
History of Present Illness - General Chief Complaint: Shortness of breath Stated Complaint: SOB Time Seen by Provider: 08/13/16 11:27 Source: Patient, RN notes reviewed Mode of Arrival: Wheelchair - History of Present Illness Initial Comments: Patient states SOB for 4 days and congestion and a cough and she has a history of CHF and cardiac stents. Cardiac stents placed by Dr. Jeff july 30 2016 and she has edema in her legs all the time. Onset/Timin -: Days(s) Improves With: Rest, Upright position Known History Of: Congestive heart failure Associated Symptoms: Other Treatments Prior to Arrival: None - Related Data Home Medications Medication Instructions Recorded Confirmed Last Taken Albuterol Sulfate [Proair Hfa] 1 - 2 puff IH .EVERY 4-6 HOURS PRN 05/01/1408/1308/12/16 Atorvastatin Calcium [Lipitor] 40 mg PO DAILY 05/01/14 08/13/16 08/12/16 Budesonide/Formoterol Fumarate 2 puff IH BID 05/01/14 08/13/16 08/12/16 [Symbicort 160-4.5 Mcg Inhaler] Insulin Glargine,Hum.rec.anlog 65 units SQ QAM 05/01/14 08/13/16 08/12/16 [Lantus Solostar] Levothyroxine Sodium [Synthroid] 175 mcg PO DAILYTHY 05/01/14 08/13/16 08/13/16 Lisinopril [Zestril] 20 mg PO DAILY 05/01/14 08/13/16 08/12/16 Nebivolol HCl [Bystolic] 20 mg PO BID 05/01/14 08/13/16 08/12/16 Ropinirole HCl 2 tab PO QHS 05/01/14 08/13/16 08/12/16 Montelukast Sodium [Singulair] 10 mg PO QHS 05/24/16 08/13/16 08/12/16 Ethacrynic Acid [Edecrin] 100 mg PO DAILY 08/13/16 08/13/16 1 Day Ago Isosorbide Mononitrate [Imdur] 30 mg PO DAILY 08/13/16 08/13/16 08/13/16 Previous Rx's Medication Instructions Recorded Baclofen [Lioresal] 10 mg PO TID PRN #0 tab 07/16/15 Clopidogrel Bisulfate [Plavix] 75 mg PO DAILY tab 07/16/15 Oxycodone HCl/Acetaminophen 1 udtab PO QID #60 tablet 07/16/15 [Percocet 5mg/325mg] Allergies Allergy/AdvReac Type Severity Reaction Status Date / Time adenosine Allergy Intermediate HYPERSENSIT Verified 05/24/16 18:10 IVITY alprazolam [From XANAX] Allergy Intermediate RASH Verified 05/24/16 18:10 azithromycin [AZITHROMYCIN] Allergy Intermediate RASH Verified 05/24/16 18:10 cefaclor Allergy Intermediate RASH Verified 05/24/16 18:10 clonidine HCl [From CATAPRES] Allergy Intermediate RASH Verified 05/24/16 18:10 codeine [CODEINE] Allergy Intermediate RASH Verified 05/24/16 18:10 diclofenac sodium Allergy Intermediate RASH Verified 05/24/16 18:10 [From VOLTAREN] dipyridamole Allergy Intermediate RASH Verified 05/24/16 18:10 [From PERSANTINE] doxycycline calcium Allergy Intermediate RASH Verified 05/24/16 18:10 [From VIBRAMYCIN] doxycycline hyclate Allergy Intermediate RASH Verified 05/24/16 18:10 [From VIBRAMYCIN] doxycycline monohydrate Allergy Intermediate RASH Verified 05/24/16 18:10 [From VIBRAMYCIN] duloxetine HCl Allergy Intermediate HIVES Verified 05/24/16 18:10 [From CYMBALTA] estrogens, conjugated Allergy Intermediate HIVES Verified 05/24/16 18:10 [From PREMARIN] gabapentin [From NEURONTIN] Allergy Intermediate HIVES Verified 05/24/16 18:10 hydrocodone [HYDROCODONE] Allergy Intermediate HIVES Verified 05/24/16 18:10 lactose [LACTOSE] Allergy Intermediate HIVES Verified 05/24/16 18:10 pentoxifylline [From TRENTAL] Allergy Intermediate HIVES Verified 05/24/16 18:10 pregabalin [From LYRICA] Allergy Intermediate HIVES Verified 05/24/16 18:10 promethazine HCl Allergy Intermediate HIVES Verified 05/24/16 18:10 [From PHENERGAN] sulfamethoxazole Allergy Intermediate HIVES Verified 05/24/16 18:10 [From SEPTRA] tramadol HCl [From ULTRAM] Allergy Intermediate HIVES Verified 05/24/16 18:10 trimethoprim [From SEPTRA] Allergy Intermediate HIVES Verified 05/24/16 18:10 venlafaxine HCl Allergy Intermediate HIVES Verified 05/24/16 18:10 [From EFFEXOR] Travel Screening - Travel/Exposure Within Last 30 Days Have you traveled within the last 30 days?: No - Travel/Exposure Within Last Year Have you traveled outside the [place] in the last year?: No - Additonal Travel Details Have you been exposed to anyone with a communicable illness?: No - Travel Symptoms Symptom Screening: None Review of Systems Reviewed: No additional complaints except as noted below Constitutional: Reports: As per HPI. Denies: Chills, Fever, Malaise, Night sweats, Weakness, Weight change Eyes: Reports: As per HPI. Denies: Eye discharge, Eye pain, Photophobia, Vision change ENT: Reports: As per HPI, Congestion. Denies: Dental pain, Ear pain, Epistaxis , Hearing loss, Throat pain Respiratory: Reports: As per HPI, Cough, Dyspnea. Denies: Hemoptysis, Stridor, Wheezes Cardiovascular: Reports: As per HPI. Denies: Arrhythmia, Chest pain, Dyspnea on exertion, Edema, Murmurs, Orthopnea, Palpitations, Paroxysmal nocturnal dyspnea, Rheumatic Fever, Syncope Endocrine: Reports: As per HPI. Denies: Fatigue, Heat or cold intolerance, Polydipsia, Polyuria Gastrointestinal: Reports: As per HPI, Melena. Denies: Abdominal pain, Constipation, Diarrhea, Hematemesis, Hematochezia, Nausea, Vomiting Genitourinary: Reports: As per HPI. Denies: Abnormal menses, Discharge, Dyspareunia, Dysuria, Frequency, Hematuria, Incontinence, Retention, Urgency Musculoskeletal: Reports: As per HPI. Denies: Arthralgia, Back pain, Gout, Joint swelling, Myalgia, Neck pain Skin: Reports: As per HPI. Denies: Bruising, Change in color, Change in hair/ nails, Lesions, Pruritus, Rash Neurological: Reports: As per HPI. Denies: Abnormal gait, Confusion, Headache, Numbness, Paresthesias, Seizure, Tingling, Tremors, Vertigo, Weakness Psychiatric: Reports: As per HPI. Denies: Anxiety, Auditory hallucinations, Depression, Homicidal thoughts, Suicidal thoughts, Visual hallucinations Hematological/Lymphatic: Reports: As per HPI. Denies: Anemia, Blood Clots, Easy bleeding, Easy bruising, Swollen glands Past Medical History - SOCIAL HISTORY Smoking Status: Former smoker Drug Use: None - RESPIRATORY Hx Respiratory Disorders: Yes Hx Asthma: Yes Hx Bronchitis: Yes Hx Dyspnea: Yes Hx Pneumonia: Yes Hx Pulmonary Embolism: Yes (x3) - CARDIOVASCULAR Hx Cardio Disorders: Yes Hx Abnormal EKG: Yes Hx Cardiac Cath: Yes Hx Chest Pain: Yes Hx CHF: Yes (2 years ago) Hx Deep Vein Thrombosis: Yes (Legs, abdomen) Hx Edema: Yes (lymphedema of bilateral LE, wears compression stockings) Hx Heart Attack: Yes Hx Hypertension: Yes Hx Pacemaker/Defib: Yes Hx Vascular Disease: Yes - NEURO Hx Neuro Disorders: Yes Hx Neuropathy: Yes Hx TIA: Yes (x2) - GI Hx GI Disorders: Yes Hx GI Bleed: Yes Hx Reflux: Yes Hx Irritable Bowel: Yes Hx Rectal Bleeding: Yes - Hx Genitourinary Disorders: Yes Hx Bladder Problem: Yes Comment:: Renal stent bilat, left one is plugged - ENDOCRINE Hx Endocrine Disorders: Yes Hx Diabetes: Yes Hx Thyroid Disease: Yes - MUSCULOSKELETAL Hx Musculoskeletal Disorders: Yes Hx Arthritis: Yes Comment:: restless leg syndrome - PSYCH Hx Psych Problems: Yes Hx Anxiety: Yes Hx Depression: Yes - HEMATOLOGY/ONCOLOGY Hx Hematology/Oncology Disorders: Yes Hx Anemia: Yes Family Medical History Hx Cancer: Mother Hx Heart Disease: Father, Mother Hx HTN: Father, Mother Physical Exam - General General Appearance: Alert, Oriented x3, Cooperative, Mild distress - Head Head exam: Normal inspection - Eye Eye exam: Normal appearance, PERRL Pupils: Normal accommodation - ENT ENT exam: Normal exam, Mucous membranes moist, Normal external ear exam, Normal orophraynx, TM's normal bilaterally Ear exam: Normal external inspection. negative: External canal tenderness Nasal Exam: Normal inspection. negative: Discharge, Sinus tenderness Mouth exam: Normal external inspection, Tongue normal Teeth exam: Normal inspection. negative: Dental caries Throat exam: Normal inspection. negative: Tonsillar erythema, Tonsillar exudate - Neck Neck exam: Normal inspection, Full ROM. negative: Tenderness - Respiratory Respiratory exam: Rales. negative: Respiratory distress - Cardiovascular Cardiovascular Exam: Regular rate, Normal rhythm, Normal heart sounds - GI/Abdominal GI/Abdominal exam: Soft, Normal bowel sounds. negative: Tenderness - Rectal Rectal exam: Deferred - exam: Deferred - Extremities Extremities exam: Full ROM, Normal capillary refill, Pedal edema. negative: Tenderness - Back Back exam: Reports: Normal inspection, Full ROM. Denies: Muscle spasm, Rash noted, Tenderness - Neurological Neurological exam: Alert, Normal gait, Oriented X3, Reflexes normal - Psychiatric Psychiatric exam: Normal affect, Normal mood - Skin Skin exam: Dry, Intact, Normal color, Warm Course Vital Signs 08/13/16 11:28 Temperature 97.6 F Pulse Rate 80 Respiratory 40 H Rate Blood Pressure 198/92 Pulse Ox 100 NG tube placed and Coffee ground flexs of material No bright red bleeding. discussed case with Dr. Lockett and she wants her transfered to [place] and she also told me her INR was 8.0 last week and now it is 2.25 now. [address] case [address]. Oden and he accepted patient and will transfer to [facility]. - Reevaluation(s) Reevaluation #1: upper GI bleed which has stopped 08/13/16 15:53 Reevaluation #2: transfuse one unit when ready 08/13/16 16:16 Medical Decision Making - Lab Data Result diagrams: 08/13/16 12:00 08/13/16 12:00 Disposition Clinical Impression: Anticoagulated on Coumadin, History of CHF (congestive heart failure) GI bleed Qualifiers: GI bleed type/associated pathology: unspecified gastrointestinal hemorrhage type Qualified Code(s): K92.2 - Gastrointestinal hemorrhage, unspecified Disposition: Acute Care Hospital Transfer Condition: (2) Stable Forms: Patient Portal Access Time of Disposition: 15:54
[2016-08-13 12:10] LABS: BASO % 0.5 % (0-6); EOS % 1.7 % (0-6); GRAN % 63.4 % (47-80); HEMOGLOBIN 7.5 gm/dl (11.6-16.0); LYMPH % 26.1 % (16-45); MEAN CELL VOLUME 93.1 fl (81-97); MEAN CORPUSCULAR HGB CONC 32.6 g/dl (32-36); MEAN PLATELET VOLUME 11.1 fl (7.4-10.4); MONO % 8.3 % (0-9); PLATELET COUNT 204 K/uL (130-400); RED BLOOD COUNT 2.47 M/uL (3.80-5.40); RED CELL DISTRIBUTION WIDTH 15.4 % (11.5-14.5); WHITE BLOOD COUNT W/O DIFF 5.9 K/uL (4.2-12.2)
[2016-08-13 12:13] LABS: MEAN CORPUSCULAR HEMOGLOBIN 30.3 pg (27-33)
[2016-08-13] MEDS ORDERED: FUROSEMIDE IV 40MG/4ML VIAL IVP ONE (12:21)
[2016-08-13 12:24] LABS: ALBUMIN 3.4 gm/dL (3.5-5.0); ALKALINE PHOSPHATASE 75 U/L (38-126); ALT/SGPT 23 U/L (9-52); ANION GAP 9.2 (7-16); AST/SGOT 18 U/L (14-36); BILIRUBIN,TOTAL 0.48 mg/dL (0.2-1.3); BLOOD UREA NITROGEN 32 mg/dL (7-17); CARBON DIOXIDE 20.8 mmol/L (22-30); CREATININE 0.8 mg/dL (0.52-1.04); EST GLOMERULAR FILTRATION RATE > 60 ml/min; GLUCOSE,RANDOM 222 mg/dL (70-110); LIPASE 35 U/L (23-300); TOTAL PROTEIN 6.1 gm/dL (6.3-8.2)
[2016-08-13 12:25] LABS: INR 2.25; PARTIAL THROMBOPLASTIN TIME 27.9 SECONDS (24.5-39.1); PROTHROMBIN TIME (PATIENT) 25.4 SECONDS (9.5-12.1)
[2016-08-13 12:35] LABS: URINE APPEARANCE CLEAR; URINE BILIRUBIN NEGATIVE (NEGATIVE); URINE BLOOD NEGATIVE (NEGATIVE); URINE COLOR YELLOW; URINE KETONE NEGATIVE (NEGATIVE); URINE LEUKOCYTE ESTERASE MODERATE (NEGATIVE); URINE NITRITE NEGATIVE (NEGATIVE); URINE PROTEIN NEGATIVE (NEGATIVE)
[2016-08-13 12:36] LABS: CKMB 0.5 ug/L (0-6)
[2016-08-13 12:37] LABS: TROPONIN I < 0.012 ng/mL (0.00-0.034)
[2016-08-13 12:50] LABS: URINE RBC NONE SEEN (NONE SEEN)
[2016-08-13] MEDS ORDERED: PHYTONADIONE 10 MG in 0.9 % SODIUM CHLORIDE 100ML 100 ML IVPB ONE (15:07)
[2016-08-13] MEDS ORDERED: 0.9 % SODIUM CHLORIDE 1000ML 1,000 ML IV ONE ×2 (15:17→17:28)
[2016-08-13 15:59] LABS: ABO GROUP A; ANTIBODY SCREEN NEGATIVE (NEGATIVE); RH TYPE POSITIVE
[2016-08-13 16:00] LABS: IMMED. SPIN CROSSMATCH COMPATIBLE
[2016-08-13] MEDS ORDERED: ACETAMINOPHEN 500 MG TABLET PO ONE (17:28)
--- NOTE | 2016-08-13 17:34 | Emergency Department Record ---
History of Present Illness - General Chief Complaint: Shortness of breath Stated Complaint: SOB Time Seen by Provider: 08/13/16 11:27 Source: Patient, RN notes reviewed Mode of Arrival: Wheelchair - History of Present Illness Onset/Timin -: Days(s) Improves With: Rest, Upright position Known History Of: Congestive heart failure Associated Symptoms: Other Treatments Prior to Arrival: None - Related Data Home Medications Medication Instructions Recorded Confirmed Last Taken Albuterol Sulfate [Proair Hfa] 1 - 2 puff IH .EVERY 4-6 HOURS PRN 05/01/1408/1308/12/16 Atorvastatin Calcium [Lipitor] 40 mg PO DAILY 05/01/14 08/13/16 08/12/16 Budesonide/Formoterol Fumarate 2 puff IH BID 05/01/14 08/13/16 08/12/16 [Symbicort 160-4.5 Mcg Inhaler] Insulin Glargine,Hum.rec.anlog 65 units SQ QAM 05/01/14 08/13/16 08/12/16 [Lantus Solostar] Levothyroxine Sodium [Synthroid] 175 mcg PO DAILYTHY 05/01/14 08/13/16 08/13/16 Lisinopril [Zestril] 20 mg PO DAILY 05/01/14 08/13/16 08/12/16 Nebivolol HCl [Bystolic] 20 mg PO BID 05/01/14 08/13/16 08/12/16 Ropinirole HCl 2 tab PO QHS 05/01/14 08/13/16 08/12/16 Montelukast Sodium [Singulair] 10 mg PO QHS 05/24/16 08/13/16 08/12/16 Ethacrynic Acid [Edecrin] 100 mg PO DAILY 08/13/16 08/13/16 1 Day Ago Isosorbide Mononitrate [Imdur] 30 mg PO DAILY 08/13/16 08/13/16 08/13/16 Previous Rx's Medication Instructions Recorded Baclofen [Lioresal] 10 mg PO TID PRN #0 tab 07/16/15 Clopidogrel Bisulfate [Plavix] 75 mg PO DAILY tab 07/16/15 Oxycodone HCl/Acetaminophen 1 udtab PO QID #60 tablet 07/16/15 [Percocet 5mg/325mg] Allergies Allergy/AdvReac Type Severity Reaction Status Date / Time adenosine Allergy Intermediate HYPERSENSIT Verified 05/24/16 18:10 IVITY alprazolam [From XANAX] Allergy Intermediate RASH Verified 05/24/16 18:10 azithromycin [AZITHROMYCIN] Allergy Intermediate RASH Verified 05/24/16 18:10 cefaclor Allergy Intermediate RASH Verified 05/24/16 18:10 clonidine HCl [From CATAPRES] Allergy Intermediate RASH Verified 05/24/16 18:10 codeine [CODEINE] Allergy Intermediate RASH Verified 05/24/16 18:10 diclofenac sodium Allergy Intermediate RASH Verified 05/24/16 18:10 [From VOLTAREN] dipyridamole Allergy Intermediate RASH Verified 05/24/16 18:10 [From PERSANTINE] doxycycline calcium Allergy Intermediate RASH Verified 05/24/16 18:10 [From VIBRAMYCIN] doxycycline hyclate Allergy Intermediate RASH Verified 05/24/16 18:10 [From VIBRAMYCIN] doxycycline monohydrate Allergy Intermediate RASH Verified 05/24/16 18:10 [From VIBRAMYCIN] duloxetine HCl Allergy Intermediate HIVES Verified 05/24/16 18:10 [From CYMBALTA] estrogens, conjugated Allergy Intermediate HIVES Verified 05/24/16 18:10 [From PREMARIN] gabapentin [From NEURONTIN] Allergy Intermediate HIVES Verified 05/24/16 18:10 hydrocodone [HYDROCODONE] Allergy Intermediate HIVES Verified 05/24/16 18:10 lactose [LACTOSE] Allergy Intermediate HIVES Verified 05/24/16 18:10 pentoxifylline [From TRENTAL] Allergy Intermediate HIVES Verified 05/24/16 18:10 pregabalin [From LYRICA] Allergy Intermediate HIVES Verified 05/24/16 18:10 promethazine HCl Allergy Intermediate HIVES Verified 05/24/16 18:10 [From PHENERGAN] sulfamethoxazole Allergy Intermediate HIVES Verified 05/24/16 18:10 [From SEPTRA] tramadol HCl [From ULTRAM] Allergy Intermediate HIVES Verified 05/24/16 18:10 trimethoprim [From SEPTRA] Allergy Intermediate HIVES Verified 05/24/16 18:10 venlafaxine HCl Allergy Intermediate HIVES Verified 05/24/16 18:10 [From EFFEXOR] Travel Screening - Travel/Exposure Within Last 30 Days Have you traveled within the last 30 days?: No - Travel/Exposure Within Last Year Have you traveled outside the [place] in the last year?: No - Additonal Travel Details Have you been exposed to anyone with a communicable illness?: No - Travel Symptoms Symptom Screening: None Review of Systems Constitutional: Reports: As per HPI. Denies: Chills, Fever, Malaise, Night sweats, Weakness, Weight change Eyes: Reports: As per HPI. Denies: Eye discharge, Eye pain, Photophobia, Vision change ENT: Reports: As per HPI, Congestion. Denies: Dental pain, Ear pain, Epistaxis , Hearing loss, Throat pain Respiratory: Reports: As per HPI, Cough, Dyspnea. Denies: Hemoptysis, Stridor, Wheezes Cardiovascular: Reports: As per HPI. Denies: Arrhythmia, Chest pain, Dyspnea on exertion, Edema, Murmurs, Orthopnea, Palpitations, Paroxysmal nocturnal dyspnea, Rheumatic Fever, Syncope Endocrine: Reports: As per HPI. Denies: Fatigue, Heat or cold intolerance, Polydipsia, Polyuria Gastrointestinal: Reports: As per HPI, Melena. Denies: Abdominal pain, Constipation, Diarrhea, Hematemesis, Hematochezia, Nausea, Vomiting Genitourinary: Reports: As per HPI. Denies: Abnormal menses, Discharge, Dyspareunia, Dysuria, Frequency, Hematuria, Incontinence, Retention, Urgency Musculoskeletal: Reports: As per HPI. Denies: Arthralgia, Back pain, Gout, Joint swelling, Myalgia, Neck pain Skin: Reports: As per HPI. Denies: Bruising, Change in color, Change in hair/ nails, Lesions, Pruritus, Rash Neurological: Reports: As per HPI. Denies: Abnormal gait, Confusion, Headache, Numbness, Paresthesias, Seizure, Tingling, Tremors, Vertigo, Weakness Psychiatric: Reports: As per HPI. Denies: Anxiety, Auditory hallucinations, Depression, Homicidal thoughts, Suicidal thoughts, Visual hallucinations Hematological/Lymphatic: Reports: As per HPI. Denies: Anemia, Blood Clots, Easy bleeding, Easy bruising, Swollen glands Past Medical History - SOCIAL HISTORY Smoking Status: Former smoker Drug Use: None - RESPIRATORY Hx Respiratory Disorders: Yes Hx Asthma: Yes Hx Bronchitis: Yes Hx Dyspnea: Yes Hx Pneumonia: Yes Hx Pulmonary Embolism: Yes (x3) - CARDIOVASCULAR Hx Cardio Disorders: Yes Hx Abnormal EKG: Yes Hx Cardiac Cath: Yes Hx Chest Pain: Yes Hx CHF: Yes (2 years ago) Hx Deep Vein Thrombosis: Yes (Legs, abdomen) Hx Edema: Yes (lymphedema of bilateral LE, wears compression stockings) Hx Heart Attack: Yes Hx Hypertension: Yes Hx Pacemaker/Defib: Yes Hx Vascular Disease: Yes - NEURO Hx Neuro Disorders: Yes Hx Neuropathy: Yes Hx TIA: Yes (x2) - GI Hx GI Disorders: Yes Hx GI Bleed: Yes Hx Reflux: Yes Hx Irritable Bowel: Yes Hx Rectal Bleeding: Yes - Hx Genitourinary Disorders: Yes Hx Bladder Problem: Yes Comment:: Renal stent bilat, left one is plugged - ENDOCRINE Hx Endocrine Disorders: Yes Hx Diabetes: Yes Hx Thyroid Disease: Yes - MUSCULOSKELETAL Hx Musculoskeletal Disorders: Yes Hx Arthritis: Yes Comment:: restless leg syndrome - PSYCH Hx Psych Problems: Yes Hx Anxiety: Yes Hx Depression: Yes - HEMATOLOGY/ONCOLOGY Hx Hematology/Oncology Disorders: Yes Hx Anemia: Yes Family Medical History Hx Cancer: Mother Hx Heart Disease: Father, Mother Hx HTN: Father, Mother Course Vital Signs 08/13/16 08/13/16 08/13/16 11:28 12:26 15:19 Temperature 97.6 F Pulse Rate 80 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 Will not transfuse that unit and will transfer to [facility] for transfusion. 08/13/16 17:30 08/13/16 17:33 Medical Decision Making - Lab Data Result diagrams: 08/13/16 12:00 08/13/16 12:00 Lab Results 08/13/16 08/13/16 08/13/16 Range/Units 12:00 12:00 12:00 WBC 5.9 (4.2-12.2) K/uL RBC 2.47 L (3.80-5.40) M/uL Hgb 7.5 L (11.6-16.0) gm/dl Hct 23.0 L (35.0-47.0) % MCV 93.1 (81-97) fl MCH 30.3 (27-33) pg MCHC 32.6 (32-36) g/dl RDW 15.4 H (11.5-14.5) % Plt Count 204 (130-400) K/uL MPV 11.1 H (7.4-10.4) fl Gran % 63.4 (47-80) % Lymphocytes % 26.1 (16-45) % Monocytes % 8.3 (0-9) % Eosinophils % 1.7 (0-6) % Basophils % 0.5 (0-6) % PT 25.4 H (9.5-12.1) SECONDS INR 2.25 APTT 27.90 (24.5-39.1) SECONDS Sodium 134 L (136-145) mmol/L Potassium 4.2 (3.5-5.1) mmol/L Chloride 104 (98-107) mmol/L Carbon Dioxide 20.8 L (22-30) mmol/L Anion Gap 9.2 (7-16) BUN 32 H (7-17) mg/dL Creatinine 0.8 (0.52-1.04) mg/dL Estimated GFR > 60 ml/min POC Glucose (70-110) mg/dL Random Glucose 222 H (70-110) mg/dL Calcium 8.6 (8.5-10.1) mg/dL Total Bilirubin 0.48 (0.2-1.3) mg/dL Direct Bilirubin 0.0 (0-0.3) mg/dL AST 18 (14-36) U/L ALT 23 (9-52) U/L Alkaline Phosphatase 75 (38-126) U/L CK-MB (CK-2) (0-6) ug/L Troponin I (0.00-0.034) ng/mL Total Protein 6.1 L (6.3-8.2) gm/dL Albumin 3.4 L (3.5-5.0) gm/dL Lipase 35 (23-300) U/L Urine Color Urine Appearance Urine pH (5.0-8.0) Ur Specific [place] (1.002-1.030) Urine Protein (NEGATIVE) Urine Glucose (UA) (NEGATIVE) Urine Ketones (NEGATIVE) Urine Blood (NEGATIVE) Urine Nitrite (NEGATIVE) Urine Bilirubin (NEGATIVE) Urine Urobilinogen (0.20 - 1.00) E.U./dL Ur Leukocyte Esterase (NEGATIVE) Urine RBC (NONE SEEN) Urine WBC (0-2/hpf) Ur Epithelial Cells (FEW) Stool Occult Blood ABO Group Rh Factor Antibody Screen (NEGATIVE) 08/13/16 08/13/16 08/13/16 Range/Units 12:00 12:00 12:30 WBC (4.2-12.2) K/uL RBC (3.80-5.40) M/uL Hgb (11.6-16.0) gm/dl Hct (35.0-47.0) % MCV (81-97) fl MCH (27-33) pg MCHC (32-36) g/dl RDW (11.5-14.5) % Plt Count (130-400) K/uL MPV (7.4-10.4) fl Gran % (47-80) % Lymphocytes % (16-45) % Monocytes % (0-9) % Eosinophils % (0-6) % Basophils % (0-6) % PT (9.5-12.1) SECONDS INR APTT (24.5-39.1) SECONDS Sodium (136-145) mmol/L Potassium (3.5-5.1) mmol/L Chloride (98-107) mmol/L Carbon Dioxide (22-30) mmol/L Anion Gap (7-16) BUN (7-17) mg/dL Creatinine (0.52-1.04) mg/dL Estimated GFR ml/min POC Glucose (70-110) mg/dL Random Glucose (70-110) mg/dL Calcium (8.5-10.1) mg/dL Total Bilirubin (0.2-1.3) mg/dL Direct Bilirubin (0-0.3) mg/dL AST (14-36) U/L ALT (9-52) U/L Alkaline Phosphatase (38-126) U/L CK-MB (CK-2) 0.5 (0-6) ug/L Troponin I < 0.012 (0.00-0.034) ng/mL Total Protein (6.3-8.2) gm/dL Albumin (3.5-5.0) gm/dL Lipase (23-300) U/L Urine Color Yellow Urine Appearance Clear Urine pH 7.0 (5.0-8.0) Ur Specific [place] 1.010 (1.002-1.030) Urine Protein Negative (NEGATIVE) Urine Glucose (UA) 100 mg/dl H (NEGATIVE) Urine Ketones Negative (NEGATIVE) Urine Blood Negative (NEGATIVE) Urine Nitrite Negative (NEGATIVE) Urine Bilirubin Negative (NEGATIVE) Urine Urobilinogen 1.0 (0.20 - 1.00) E.U./dL Ur Leukocyte Esterase Moderate H (NEGATIVE) Urine RBC None seen (NONE SEEN) Urine WBC 10 - 15 (0-2/hpf) Ur Epithelial Cells 3 - 6 (FEW) Stool Occult Blood ABO Group A Rh Factor Positive Antibody Screen Negative (NEGATIVE) 08/13/16 08/13/16 Range/Units 12:30 15:29 WBC (4.2-12.2) K/uL RBC (3.80-5.40) M/uL Hgb (11.6-16.0) gm/dl Hct (35.0-47.0) % MCV (81-97) fl MCH (27-33) pg MCHC (32-36) g/dl RDW (11.5-14.5) % Plt Count (130-400) K/uL MPV (7.4-10.4) fl Gran % (47-80) % Lymphocytes % (16-45) % Monocytes % (0-9) % Eosinophils % (0-6) % Basophils % (0-6) % PT (9.5-12.1) SECONDS INR APTT (24.5-39.1) SECONDS Sodium (136-145) mmol/L Potassium (3.5-5.1) mmol/L Chloride (98-107) mmol/L Carbon Dioxide (22-30) mmol/L Anion Gap (7-16) BUN (7-17) mg/dL Creatinine (0.52-1.04) mg/dL Estimated GFR ml/min POC Glucose 169 H (70-110) mg/dL Random Glucose (70-110) mg/dL Calcium (8.5-10.1) mg/dL Total Bilirubin (0.2-1.3) mg/dL Direct Bilirubin (0-0.3) mg/dL AST (14-36) U/L ALT (9-52) U/L Alkaline Phosphatase (38-126) U/L CK-MB (CK-2) (0-6) ug/L Troponin I (0.00-0.034) ng/mL Total Protein (6.3-8.2) gm/dL Albumin (3.5-5.0) gm/dL Lipase (23-300) U/L Urine Color Urine Appearance Urine pH (5.0-8.0) Ur Specific [place] (1.002-1.030) Urine Protein (NEGATIVE) Urine Glucose (UA) (NEGATIVE) Urine Ketones (NEGATIVE) Urine Blood (NEGATIVE) Urine Nitrite (NEGATIVE) Urine Bilirubin (NEGATIVE) Urine Urobilinogen (0.20 - 1.00) E.U./dL Ur Leukocyte Esterase (NEGATIVE) Urine RBC (NONE SEEN) Urine WBC (0-2/hpf) Ur Epithelial Cells (FEW) Stool Occult Blood Negative ABO Group Rh Factor Antibody Screen (NEGATIVE) Disposition Clinical Impression: Anticoagulated on Coumadin, History of CHF (congestive heart failure) GI bleed Qualifiers: GI bleed type/associated pathology: unspecified gastrointestinal hemorrhage type Qualified Code(s): K92.2 - Gastrointestinal hemorrhage, unspecified Disposition: Acute Care Hospital Transfer Condition: (2) Stable Forms: Patient Portal Access
[2016-08-13] MEDS ORDERED: LORAZEPAM 0.5 MG TABLET PO ONE (18:09)
[2016-08-13] MEDS ORDERED: LORAZEPAM 2 MG/ML VIAL IV ONE (18:45)
== END 2016-08-13 18:50 | disposition short-term general hospital (02) ==
LOC: ER 11:21
DX: D68.32 Hemorrhagic disorder due to extrinsic circulating anticoagulants (principal); K92.2 Gastrointestinal hemorrhage, unspecified; T45.515A Adverse effect of anticoagulants, initial encounter; I50.9 Heart failure, unspecified; I10 Essential (primary) hypertension; I25.2 Old myocardial infarction; Z95.5 Presence of coronary angioplasty implant and graft; E11.9 Type 2 diabetes mellitus without complications; Z79.4 Long term (current) use of insulin; R82.90 Unspecified abnormal findings in urine; Z87.891 Personal history of nicotine dependence; Z86.718 Personal history of other venous thrombosis and embolism
CPT/HCPCS: 99285 ×2; 96376; 36430; 96374; 96375; 83690; 85025; 85730; 85610; 80076; 82553; 84484; 80048; 36416; 81001; 82948; 82272; 86900; 86901; 86850; 71020; 93005; 93010; P9016; J2060; J1940

== ENCOUNTER 2016-10-11 08:28 | Day surgery (SDC) | payer MEDICARE, BC ==
[2016-10-11] MEDS ORDERED: LIDOCAINE 2% MDV (20MG/ML) 20ML VIAL IV ONE (14:00)
[2016-10-11] MEDS ORDERED: PROPOFOL 10 MG/ML VIAL IV ONE (14:00)
[2016-10-11] MEDS ORDERED: MIDAZOLAM HCL 2MG/2ML VIAL IV ONE (14:00)
--- NOTE | 2016-10-16 18:29 | Operative Note ---
DATE OF SURGERY: 10/11/2016 OPERATION: COLONOSCOPY. PREOPERATIVE DIAGNOSIS: GI bleed of unclear origin. POSTOPERATIVE DIAGNOSIS: Normal exam. PROCEDURE: After informed consent was obtained from the patient, she was placed in the left lateral decubitus position in the endoscopy suite, sedated and monitored by the department of anesthesia. Digital rectal examination was unremarkable. A well-lubricated [id number] colonoscope was inserted into the rectum and advanced to the cecum. Preparation quality was good. The cecum, ascending colon, transverse colon, descending colon, sigmoid colon, and rectum were unremarkable. No polyps, mass lesions, or inflammation seen. Forward and J-turn views of the rectum and anorectum were unremarkable. The endoscope was straightened, the rectal ampulla deflated, and the endoscope was removed. RECOMMENDATIONS: The patient should resume her medications and diet. If she has recurrent bleeding, I would suggest repeating her upper endoscopy, as her capsule endoscopy was unremarkable. As always, thank you for allowing me to participate in the healthcare of your patients. CC: Dr. Cathryn TONY
== END 2016-10-11 10:40 | disposition home or self-care (01) ==
LOC: HOP 08:28
PROVIDERS: ATTEND Internal Medicine Gastroenterology
DX: K92.2 Gastrointestinal hemorrhage, unspecified (principal); E03.9 Hypothyroidism, unspecified; E11.9 Type 2 diabetes mellitus without complications; Z79.01 Long term (current) use of anticoagulants

== ENCOUNTER 2017-05-21 15:02 | Inpatient (IN) | payer MEDICARE, BC ==
[2017-05-21] MEDS ORDERED: IPRATROPIUM/ALBUTEROL (0.5MG/3MG) NEB INH ONE (15:20)
[2017-05-21] MEDS ORDERED: FUROSEMIDE IV 40MG/4ML VIAL IVP ONE (15:20)
--- NOTE | 2017-05-21 15:25 | Emergency Department Record ---
History of Present Illness - General Chief Complaint: Shortness of breath Stated Complaint: TERRENCE Time Seen by Provider: 05/21/17 15:16 Source: Patient Mode of Arrival: Ambulatory Limitations: No limitations - History of Present Illness Initial Comments: The patient is here due to a 2 month hx of progressive SOB and TERRENCE now with a cough productive of colored sputum. She denies any specific CP but has had a significant weight gain and has had progressively increasing LIANG. The patient's PCP recently retired so she saw her Compliance And Control Analyst today who was Dr. Jeff and he recommended she come to the ER for treatment and hospital admission. There is no specific new chest pain or fever. MD Complaint: Cough, Shortness of breath Onset/Timin -: Month(s), Unknown Consistency: Constant Improves With: Nothing Worsens With: Exertion Known History Of: Other Associated Symptoms: Edema Treatments Prior to Arrival: None - Related Data Home Oxygen Therapy: No Home Medications Medication Instructions Recorded Confirmed Last Taken Albuterol Sulfate [Ventolin Hfa] 2 puff IH ASDIR 05/21/17 05/21/17 Unknown Aspirin [Aspirin EC] 81 mg PO DAILY 05/21/17 05/21/17 Unknown Hydralazine HCl 50 mg PO Q6H 05/21/17 05/21/17 Unknown Oxycodone HCl/Acetaminophen 1 udtab PO QHS PRN 05/21/17 05/21/17 Unknown [Percocet 5mg/325mg] Terazosin HCl 5 mg PO DAILY 05/21/17 05/21/17 Unknown Previous Rx's Medication Instructions Recorded Baclofen [Lioresal] 10 mg PO TID PRN #0 tab 07/16/15 Clopidogrel Bisulfate [Plavix] 75 mg PO DAILY tab 07/16/15 Allergies Allergy/AdvReac Type Severity Reaction Status Date / Time adenosine Allergy Intermediate HYPERSENSIT Verified 05/24/16 18:10 IVITY alprazolam [From XANAX] Allergy Intermediate RASH Verified 05/24/16 18:10 azithromycin [AZITHROMYCIN] Allergy Intermediate RASH Verified 05/24/16 18:10 cefaclor Allergy Intermediate RASH Verified 05/24/16 18:10 clonidine HCl [From CATAPRES] Allergy Intermediate RASH Verified 05/24/16 18:10 codeine [CODEINE] Allergy Intermediate RASH Verified 05/24/16 18:10 diclofenac sodium Allergy Intermediate RASH Verified 05/24/16 18:10 [From VOLTAREN] dipyridamole Allergy Intermediate RASH Verified 05/24/16 18:10 [From PERSANTINE] doxycycline calcium Allergy Intermediate RASH Verified 05/24/16 18:10 [From VIBRAMYCIN] doxycycline hyclate Allergy Intermediate RASH Verified 05/24/16 18:10 [From VIBRAMYCIN] doxycycline monohydrate Allergy Intermediate RASH Verified 05/24/16 18:10 [From VIBRAMYCIN] duloxetine HCl Allergy Intermediate HIVES Verified 05/24/16 18:10 [From CYMBALTA] estrogens, conjugated Allergy Intermediate HIVES Verified 05/24/16 18:10 [From PREMARIN] gabapentin [From NEURONTIN] Allergy Intermediate HIVES Verified 05/24/16 18:10 hydrocodone [HYDROCODONE] Allergy Intermediate HIVES Verified 05/24/16 18:10 lactose [LACTOSE] Allergy Intermediate HIVES Verified 05/24/16 18:10 pentoxifylline [From TRENTAL] Allergy Intermediate HIVES Verified 05/24/16 18:10 pregabalin [From LYRICA] Allergy Intermediate HIVES Verified 05/24/16 18:10 promethazine HCl Allergy Intermediate HIVES Verified 05/24/16 18:10 [From PHENERGAN] sulfamethoxazole Allergy Intermediate HIVES Verified 05/24/16 18:10 [From SEPTRA] tramadol HCl [From ULTRAM] Allergy Intermediate HIVES Verified 05/24/16 18:10 trimethoprim [From SEPTRA] Allergy Intermediate HIVES Verified 05/24/16 18:10 venlafaxine HCl Allergy Intermediate HIVES Verified 05/24/16 18:10 [From EFFEXOR] Travel Screening - Travel/Exposure Within Last 30 Days Have you traveled within the last 30 days?: No Review of Systems Constitutional: Reports: Malaise. Denies: Chills, Fever Eyes: Denies: Eye discharge ENT: Reports: Congestion Respiratory: Reports: Cough, Dyspnea. Denies: Hemoptysis Cardiovascular: Denies: Arrhythmia, Chest pain Endocrine: Reports: Fatigue Gastrointestinal: Denies: Diarrhea Genitourinary: Denies: Dysuria Musculoskeletal: Denies: Back pain Past Medical History - SOCIAL HISTORY Smoking Status: Former smoker Alcohol Use: None Drug Use: None - RESPIRATORY Hx Respiratory Disorders: Yes Hx Asthma: Yes Hx Bronchitis: Yes Hx Dyspnea: Yes Hx Pneumonia: Yes Hx Pulmonary Embolism: Yes (x3) - CARDIOVASCULAR Hx Cardio Disorders: Yes Hx Heart Attack: Yes - NEURO Hx Neuro Disorders: Yes Hx Neuropathy: Yes Hx TIA: Yes (x2) - GI Hx GI Disorders: Yes Hx GI Bleed: Yes Hx Reflux: Yes Hx Irritable Bowel: Yes Hx Rectal Bleeding: Yes - Hx Genitourinary Disorders: Yes Hx Bladder Problem: Yes - ENDOCRINE Hx Endocrine Disorders: Yes Hx Diabetes: Yes Hx Thyroid Disease: Yes - MUSCULOSKELETAL Hx Musculoskeletal Disorders: Yes Hx Arthritis: Yes Comment:: restless leg syndrome - PSYCH Hx Psych Problems: Yes Hx Anxiety: Yes Hx Depression: Yes - HEMATOLOGY/ONCOLOGY Hx Hematology/Oncology Disorders: Yes Hx Anemia: Yes Family Medical History Any Significant Family History?: Yes Hx Cancer: Mother Hx Heart Disease: Father, Mother Hx HTN: Father, Mother Physical Exam - General General Appearance: Alert, Oriented x3, Cooperative, Mild distress (due to TERRENCE.) - Head Head exam: Atraumatic, Normocephalic - Eye Eye exam: Normal appearance, PERRL - ENT Throat exam: Normal inspection. negative: Tonsillar erythema, Tonsillar exudate - Neck Neck exam: Normal inspection, Full ROM. negative: Tenderness - Respiratory Respiratory exam: Normal lung sounds bilaterally. negative: Rales, Respiratory distress, Rhonchi, Stridor, Wheezes - Cardiovascular Cardiovascular Exam: Regular rate, Normal rhythm, Normal heart sounds. negative : Diastolic murmur, Systolic murmur - GI/Abdominal GI/Abdominal exam: Soft, Normal bowel sounds. negative: Tenderness - Extremities Extremities exam: Pedal edema (chronic.) Course Vital Signs 05/21/17 15:04 Temperature 97.9 F Pulse Rate 58 L Respiratory 26 H Rate Blood Pressure 208/88 Pulse Ox 98 - Reevaluation(s) Reevaluation #1: The patient is doing a lot better at this time. She is breathing much easier and has had over a liter of urine out. 05/21/17 17:31 Reevaluation #2: The patient is doing much better at this time and has had 3700 cc's of urine out from the Lasix 40 mg IV. I did discuss the case with Dr. Lebron and he agrees to admit the patient to the hospital. 05/21/17 17:55 Medical Decision Making - Data Complexity MDM Data: Labs Ordered and/or Reviewed, X-Ray Ordered and/or Reviewed, EKG Ordered and/or Reviewed - Lab Data Result diagrams: 05/21/17 15:10 05/21/17 15:10 - EKG Data -: EKG Interpreted by Me EKG: No Acute Changes (Very poor tracing due to respiratory difficulty.) Disposition Disposition: Admit Clinical Impression: CHF (congestive heart failure) Disposition: Still a Patient at [facility] Decision to Admit: Admit from ER Decision to Admit Date: 05/21/17 Decision to Admit Time: 17:57 Accepting Physician: Vi Time Discussed w/Accepting Physician: 17:57 Condition: (2) Stable Forms: Patient Portal Access Time of Disposition: 17:57 Quality - Quality Measures Quality Measures: N/A - Blood Pressure Screening View Details: Yes Does Patient Have Any of the Following: No Blood Pressure Classification: Pre-Hypertensive BP Reading Systolic Measurement: 208 Diastolic Measurement: 88 Screening for High Blood Pressure: < Pre-Hypertensive BP, F/U Documented > [ [id number]] Pre-Hypertensive Follow-up Interventions: Referral to alternative/primary care provider.
[2017-05-21 15:30] LABS: BASO % 0.4 % (0-6); GRAN % 70.6 % (47-80); HEMATOCRIT 35.1 % (35.0-47.0); HEMOGLOBIN 11.1 gm/dl (11.6-16.0); MEAN CELL VOLUME 94.4 fl (81-97); MEAN CORPUSCULAR HEMOGLOBIN 29.8 pg (27-33); MEAN CORPUSCULAR HGB CONC 31.6 g/dl (32-36); PLATELET COUNT 205 K/uL (130-400); RED BLOOD COUNT 3.72 M/uL (3.80-5.40); WHITE BLOOD COUNT W/O DIFF 5.1 K/uL (4.2-12.2)
[2017-05-21 15:42] LABS: BLOOD UREA NITROGEN 18 mg/dL (8-23); CREATININE 0.8 mg/dL (0.5-0.9); EST GLOMERULAR FILTRATION RATE > 60 mL/min; INR 1.03; PARTIAL THROMBOPLASTIN TIME 25.2 SECONDS (24.5-39.1); PROTHROMBIN TIME (PATIENT) 11.1 SECONDS (9.5-12.1)
[2017-05-21 15:44] LABS: GLUCOSE,RANDOM 104 mg/dL (74-109)
[2017-05-21 15:47] LABS: CREATINE PHOSPHOKINASE 133 U/L (26-192)
[2017-05-21 15:50] LABS: CKMB 2.2 ng/mL (<3.77)
[2017-05-21] MEDS ORDERED: LEVOFLOXACIN 500 MG TABLET PO ONE (17:56)
[2017-05-21] MEDS ORDERED: BACLOFEN 10 MG TABLET PO PRN (21:08)
[2017-05-21] MEDS ORDERED: ACETAMINOPHEN 500 MG TABLET PO PRN (21:08)
[2017-05-21] MEDS ORDERED: HYDRALAZINE HCL 50 MG PO SCH (21:08)
[2017-05-21] MEDS ORDERED: ROPINIROLE HCL PO SCH (22:00)
[2017-05-21] MEDS ORDERED: Non-Formulary MISC (Budesonide/Formoterol Fumarate [Symbicort 160-4.5 Mcg Inhaler] 2 PUF IH SCH (22:00)
[2017-05-21] MEDS ORDERED: NEBIVOLOL HCL 10 MG PO SCH (22:00)
[2017-05-21] MEDS ORDERED: ALBUTEROL HFA 8 GM INHALER INH PRN (22:23)
[2017-05-21 22:50] LABS: CKMB 2.1 ng/mL (<3.77)
[2017-05-21] MEDS: POTASSIUM CHLORIDE 20 MEQ TABLET PO SCH (23:43)
[2017-05-21] MEDS: MONTELUKAST SODIUM 10MG TABLET PO SCH (23:43)
[2017-05-21] MEDS: FUROSEMIDE IV 20MG/2ML VIAL IVP SCH (23:56)
[2017-05-22] MEDS: OXYCODONE HCL/APAP 5MG/325MG TABLET PO PRN ×2 (00:27→20:42)
[2017-05-22] MEDS: BENZONATATE 100 MG CAPSULE PO PRN (00:40)
[2017-05-22] MEDS ORDERED: ALBUTEROL PUFF PRN (01:15)
[2017-05-22] MEDS: HYDRALAZINE HCL 25 MG TABLET PO SCH ×4 (06:00→18:07)
[2017-05-22] MEDS: LEVOTHYROXINE SODIUM 175 MCG TABLET PO SCH (06:01)
[2017-05-22 06:54] LABS: BASO % 0.4 % (0-6); GRAN % 67.1 % (47-80); HEMOGLOBIN 11.3 gm/dl (11.6-16.0); LYMPH % 18.6 % (16-45); MEAN CORPUSCULAR HEMOGLOBIN 29.5 pg (27-33); MEAN CORPUSCULAR HGB CONC 31.4 g/dl (32-36); MEAN PLATELET VOLUME 10.7 fl (7.4-10.4); MONO % 11.9 % (0-9); PLATELET COUNT 222 K/uL (130-400); RED BLOOD COUNT 3.83 M/uL (3.80-5.40); RED CELL DISTRIBUTION WIDTH 14.9 % (11.5-14.5)
[2017-05-22 07:11] LABS: BLOOD UREA NITROGEN 17 mg/dL (8-23); CREATININE 0.9 mg/dL (0.5-0.9); EST GLOMERULAR FILTRATION RATE > 60 mL/min; GLUCOSE,RANDOM 133 mg/dL (74-109)
[2017-05-22 07:17] LABS: CKMB 2.1 ng/mL (<3.77)
--- NOTE | 2017-05-22 07:25 | RADIOLOGY REPORT ---
EXAM: CHEST, TWO VIEWS HISTORY: COUGH. TECHNIQUE: Frontal and lateral views of the chest were obtained. Comparison: Prior chest from 08/13/16. FINDINGS: Stable cardiomegaly. Atheromatous change of the thoracic aorta. Osteopenia. Coarse interstitial changes bilaterally. No pneumothorax. Blunting of the costophrenic angles consistent with tiny effusions and/or pleural thickening. IMPRESSION: CARDIOMEGALY WITH COARSE BILATERAL INTERSTITIAL CHANGES WHICH MAY REFLECT INTERSTITIAL EDEMA OR PNEUMONITIS. TINY EFFUSIONS/PLEURAL THICKENING. JOB NUMBER: [id number] [facility]
[2017-05-22] MEDS: FUROSEMIDE IV 20MG/2ML VIAL IVP SCH (09:41)
[2017-05-22] MEDS: POTASSIUM CHLORIDE 20 MEQ TABLET PO SCH ×2 (09:41→21:49)
[2017-05-22] MEDS: ATORVASTATIN 20 MG TABLET PO SCH (09:42)
[2017-05-22] MEDS: ASPIRIN 81 MG TABEC PO SCH (09:42)
[2017-05-22] MEDS: CLOPIDOGREL 75MG TABLET PO SCH (09:42)
[2017-05-22] MEDS: ISOSORBIDE MONONITRATE 30 MG TAB.ER.24H PO SCH (09:42)
[2017-05-22] MEDS: BREO (FLUTICASONE/VILANTEROL) 200MCG/25MCG INHALER INH SCH (09:43)
[2017-05-22] MEDS: NEBIVOLOL 10 MG PO SCH ×2 (09:44→21:48)
[2017-05-22] MEDS: LEVEMIR FLEXTOUCH 100 UNIT/ML INSULIN PEN SQ SCH (09:58)
[2017-05-22] MEDS ORDERED: LISINOPRIL 20 MG TABLET PO SCH (10:00)
[2017-05-22] MEDS ORDERED: TERAZOSIN HCL 1 MG CAPSULE PO SCH (10:00)
[2017-05-22] MEDS ORDERED: FUROSEMIDE IV 40MG/4ML VIAL IVP SCH (10:00)
[2017-05-22] MEDS ORDERED: FUROSEMIDE IV 20MG/2ML VIAL IVP ONE (10:02)
[2017-05-22] MEDS: NOVOLOG FLEXPEN (INSULIN ASPART) 100 UNITS/ML SQ SCH ×2 (11:54→18:08)
[2017-05-22] MEDS: LEVOFLOXACIN 500 MG TABLET PO SCH ×2 (13:33→15:29)
[2017-05-22] MEDS: FUROSEMIDE IV 40MG/4ML VIAL IVP SCH (16:16)
[2017-05-22] MEDS: TERAZOSIN HCL 1 MG CAPSULE PO SCH (21:48)
[2017-05-22] MEDS: ROPINIROLE HCL 1 MG TABLET PO SCH (21:49)
[2017-05-22] MEDS: MONTELUKAST SODIUM 10MG TABLET PO SCH (21:49)
[2017-05-22] MEDS: LISINOPRIL 20 MG TABLET PO SCH (21:49)
[2017-05-23] MEDS: HYDRALAZINE HCL 25 MG TABLET PO SCH ×4 (00:10→18:18)
[2017-05-23] MEDS: BREO (FLUTICASONE/VILANTEROL) 200MCG/25MCG INHALER INH SCH (05:03)
[2017-05-23 06:43] LABS: BLOOD UREA NITROGEN 17 mg/dL (8-23); CREATININE 0.9 mg/dL (0.5-0.9); EST GLOMERULAR FILTRATION RATE > 60 mL/min; GLUCOSE,RANDOM 131 mg/dL (74-109)
[2017-05-23] MEDS: LEVOTHYROXINE SODIUM 175 MCG TABLET PO SCH (06:44)
--- NOTE | 2017-05-23 07:50 | History and Physical Report ---
DATE: 05/21/2017 CHIEF COMPLAINT: Dyspnea, cough, congestion, and weight gain; 15 pounds. HISTORY OF PRESENT ILLNESS: This 77-year-old female was being evaluated by Dr. Keysha Jeff, her parking ramp attendant. He brought her over to the emergency department because she was too sick to send home. She has had a cough for about 3-4 days and congestion. Had a cold for the last week. She was evaluated by Dr. Snow and she also has said that over the last 2 months, she has been short of breath and dyspnea with difficulty in breathing. She denies any specific chest pain. Dr. Lockett has been her primary doctor who just recently retired 05/12/2017. She developed this cough about a week ago. Dr. Snow was concerned about congestive heart failure and was admitted to the hospital for IV diuresis and further evaluation. PAST MEDICAL HISTORY: Acute diastolic congestive heart failure, coronary artery disease, renal artery stenosis, hypertension, diabetes mellitus type 2, hyperlipidemia, high lipid profile, hypothyroidism. She has also had pulmonary embolism x3. She has a filter in her aorta because of the PEs. She has had some neuropathy of her legs, TIA x2, osteoarthritis, restless leg syndrome. 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 MEDICATIONS: 1. Terazosin 5 mg at bedtime. 2. Requip 2 mg at bedtime. 3. Lisinopril 20 mg b.i.d. 4. Ventolin 2 puffs 4 times a day. 5. Hydralazine 50 mg q.6 h. 6. Aspirin 81 mg daily. 7. Baclofen 10 mg t.i.d. 8. Lipitor 40 mg daily. 9. Insulin Lantus 48 units q.a.m. 10. Edecrin 100 mg daily. 11. Plavix 75 mg daily. 12. Symbicort 160/4.5 two puffs b.i.d. 13. Synthroid 175 mcg daily. 14. Isosorbide mononitrate 30 mg daily. 15. Singulair 10 mg at bedtime. 16. Percocet 5 mg q.h.s. p.r.n. 17. Bystolic 10 mg b.i.d. ALLERGIES: EFFEXOR, SEPTRA, ULTRAM, PHENERGAN, LYRICA, TRENTAL, LACTOSE, HYDROCODONE, NEURONTIN, PREMARIN, CYMBALTA, VIBRAMYCIN, DOXYCYCLINE, PERSANTINE, VOLTAREN, CODEINE, CATAPRES, CECLOR, AZITHROMYCIN, XANAX, ADENOSINE. FAMILY/PSYCHOSOCIAL HISTORY: Cancer with the mother. Father and mother had heart disease. Hypertension in father and mother. She is a former smoker, quit in 1967. No alcohol or drug use. REVIEW OF SYSTEMS: HEENT: She has had congestion and cough for the last week. She has been short of breath for the last 2-3 months. Cardiovascular: No chest pain or palpitations. Respiratory: She has a cough and congestion, short of breath. Gastrointestinal: No nausea, vomiting, diarrhea, black stools, or bloody stools. Genitourinary: No dysuria, hematuria, frequency, or burning on urination. Musculoskeletal: She has diffuse joint problems. Neurological: No CVA, paralysis, or paresthesias. Gynecological: She has no lumps in her breasts or abnormal vaginal bleeding at this time. Endocrine: She has diabetes mellitus type 2 and hypothyroidism. Integument: No rash, ulcers, change in moles, or yellow skin. PHYSICAL EXAMINATION: VITALS: Height 5 feet 4 inches, weight 271 pounds. Temperature 98.6, pulse 57, blood pressure 190/105, respiratory rate 30, pulse ox 94% on room air. Her blood pressure has been remaining high throughout. HEENT: Pupils are equal, round, and reactive to light and accommodation. Extraocular muscles are intact. Throat is clear. Nose is clear. Tympanic membranes are zamudio. NECK: Supple. No jugular venous distention. No hepatojugular reflux. No carotid bruits. Thyroid is smooth. CARDIOVASCULAR: Regular rate and rhythm without murmurs, clicks, rubs, or gallops. RESPIRATORY: She has wheezing in both lungs and cough, congestion, and sore throat. ABDOMEN: Soft, nontender. No hepatosplenomegaly, no tenderness. Bowel sounds are active. EXTREMITIES: Some pedal edema and her weight is up 15 pounds. No cyanosis, no clubbing. Full range of motion. Peripheral pulses are good. BREASTS: Deferred. GYNECOLOGICAL: Exam deferred. RECTAL: Exam deferred. NEUROLOGIC: Cranial nerves II-XII intact. No gross defects. Sensation normal, strength normal. Deep tendon reflexes equal bilaterally with Babinski negative. MENTAL STATUS: Alert and oriented x3. IMPRESSION: 1. Acute bronchitis. 2. Diastolic heart failure. 3. Status post coronary artery disease. 4. Status post renal artery stenosis. 5. Resistant hypertension. 6. Diabetes mellitus type 2. 7. Hypothyroidism. 8. Hypercholesterolemia. PLAN: Continue Lasix 40 mg b.i.d. May change her blood pressure medication slightly to improve and may consider going with Minoxidil 5 mg daily. MTDD
[2017-05-23] MEDS: NOVOLOG FLEXPEN (INSULIN ASPART) 100 UNITS/ML SQ SCH ×3 (08:21→17:58)
[2017-05-23 08:51] LABS: INFLUENZA A NEGATIVE (NEGATIVE); INFLUENZA B NEGATIVE (NEGATIVE)
[2017-05-23] MEDS: LEVEMIR FLEXTOUCH 100 UNIT/ML INSULIN PEN SQ SCH (09:14)
[2017-05-23] MEDS: OXYCODONE HCL/APAP 5MG/325MG TABLET PO PRN ×2 (09:15→21:27)
[2017-05-23] MEDS: ISOSORBIDE MONONITRATE 30 MG TAB.ER.24H PO SCH (09:16)
[2017-05-23] MEDS: POTASSIUM CHLORIDE 20 MEQ TABLET PO SCH ×2 (09:16→21:27)
[2017-05-23] MEDS: LISINOPRIL 20 MG TABLET PO SCH ×2 (09:16→21:27)
[2017-05-23] MEDS: ASPIRIN 81 MG TABEC PO SCH (09:16)
[2017-05-23] MEDS: LEVOFLOXACIN 500 MG TABLET PO SCH (09:16)
[2017-05-23] MEDS: CLOPIDOGREL 75MG TABLET PO SCH (09:17)
[2017-05-23] MEDS: ATORVASTATIN 20 MG TABLET PO SCH (09:17)
[2017-05-23] MEDS: ENOXAPARIN 40 MG/0.4 ML SYR SQ SCH (09:17)
[2017-05-23] MEDS: FUROSEMIDE IV 40MG/4ML VIAL IVP SCH ×2 (09:17→16:22)
[2017-05-23] MEDS: NEBIVOLOL 10 MG PO SCH ×2 (09:21→21:28)
[2017-05-23] MEDS: BIFIDOBACTERIUM INFANTIS 4 MG CAPSULE PO SCH (13:57)
[2017-05-23] MEDS: TERAZOSIN HCL 1 MG CAPSULE PO SCH (21:26)
[2017-05-23] MEDS: ROPINIROLE HCL 1 MG TABLET PO SCH (21:27)
[2017-05-23] MEDS: MONTELUKAST SODIUM 10MG TABLET PO SCH (21:27)
[2017-05-24] MEDS: HYDRALAZINE HCL 25 MG TABLET PO SCH ×4 (00:11→18:58)
[2017-05-24] MEDS: BENZONATATE 100 MG CAPSULE PO PRN (05:04)
[2017-05-24] MEDS: LEVOTHYROXINE SODIUM 175 MCG TABLET PO SCH (06:08)
[2017-05-24] MEDS: NOVOLOG FLEXPEN (INSULIN ASPART) 100 UNITS/ML SQ SCH ×3 (07:45→18:06)
[2017-05-24] MEDS: LEVOFLOXACIN 500 MG TABLET PO SCH (09:45)
[2017-05-24] MEDS: LISINOPRIL 20 MG TABLET PO SCH ×2 (09:45→22:04)
[2017-05-24] MEDS: POTASSIUM CHLORIDE 20 MEQ TABLET PO SCH ×2 (09:46→22:04)
[2017-05-24] MEDS: ATORVASTATIN 20 MG TABLET PO SCH (09:46)
[2017-05-24] MEDS: ASPIRIN 81 MG TABEC PO SCH (09:46)
[2017-05-24] MEDS: CLOPIDOGREL 75MG TABLET PO SCH (09:47)
[2017-05-24] MEDS: BIFIDOBACTERIUM INFANTIS 4 MG CAPSULE PO SCH (09:47)
[2017-05-24] MEDS: ISOSORBIDE MONONITRATE 30 MG TAB.ER.24H PO SCH (09:47)
[2017-05-24] MEDS: ENOXAPARIN 40 MG/0.4 ML SYR SQ SCH (09:49)
[2017-05-24] MEDS: FUROSEMIDE IV 40MG/4ML VIAL IVP SCH (09:50)
[2017-05-24] MEDS: LEVEMIR FLEXTOUCH 100 UNIT/ML INSULIN PEN SQ SCH (09:53)
[2017-05-24] MEDS: NEBIVOLOL 10 MG PO SCH ×2 (09:54→22:07)
[2017-05-24] MEDS ORDERED: FUROSEMIDE IV 40MG/4ML VIAL IVP ONE (14:47)
[2017-05-24] MEDS: OXYCODONE HCL/APAP 5MG/325MG TABLET PO PRN (15:05)
[2017-05-24] MEDS: BREO (FLUTICASONE/VILANTEROL) 200MCG/25MCG INHALER INH SCH ×3 (16:20→16:27)
[2017-05-24] MEDS: ROPINIROLE HCL 1 MG TABLET PO SCH (22:04)
[2017-05-24] MEDS: TERAZOSIN HCL 1 MG CAPSULE PO SCH (22:04)
[2017-05-24] MEDS: MONTELUKAST SODIUM 10MG TABLET PO SCH (22:05)
[2017-05-25] MEDS: HYDRALAZINE HCL 25 MG TABLET PO SCH ×4 (00:04→17:33)
[2017-05-25] MEDS: LEVOTHYROXINE SODIUM 175 MCG TABLET PO SCH (06:08)
[2017-05-25] MEDS: OXYCODONE HCL/APAP 5MG/325MG TABLET PO PRN ×2 (06:32→22:20)
[2017-05-25 07:33] LABS: CREATININE 1.1 mg/dL (0.5-0.9)
[2017-05-25] MEDS: NOVOLOG FLEXPEN (INSULIN ASPART) 100 UNITS/ML SQ SCH ×3 (08:18→17:21)
[2017-05-25] MEDS: ASPIRIN 81 MG TABEC PO SCH (09:59)
[2017-05-25] MEDS: BIFIDOBACTERIUM INFANTIS 4 MG CAPSULE PO SCH (09:59)
[2017-05-25] MEDS: ISOSORBIDE MONONITRATE 30 MG TAB.ER.24H PO SCH (09:59)
[2017-05-25] MEDS: LEVEMIR FLEXTOUCH 100 UNIT/ML INSULIN PEN SQ SCH (10:00)
[2017-05-25] MEDS: FUROSEMIDE IV 40MG/4ML VIAL IVP SCH (10:00)
[2017-05-25] MEDS: POTASSIUM CHLORIDE 20 MEQ TABLET PO SCH ×2 (10:00→22:09)
[2017-05-25] MEDS: ENOXAPARIN 40 MG/0.4 ML SYR SQ SCH (10:03)
[2017-05-25] MEDS: ATORVASTATIN 20 MG TABLET PO SCH (10:03)
[2017-05-25] MEDS: LEVOFLOXACIN 500 MG TABLET PO SCH (10:04)
[2017-05-25] MEDS: LISINOPRIL 20 MG TABLET PO SCH ×2 (10:04→22:09)
[2017-05-25] MEDS: NEBIVOLOL 10 MG PO SCH ×2 (10:04→22:10)
[2017-05-25] MEDS: CLOPIDOGREL 75MG TABLET PO SCH (10:04)
[2017-05-25] MEDS: BREO (FLUTICASONE/VILANTEROL) 200MCG/25MCG INHALER INH SCH (10:45)
[2017-05-25] MEDS: ROPINIROLE HCL 1 MG TABLET PO SCH (22:09)
[2017-05-25] MEDS: TERAZOSIN HCL 1 MG CAPSULE PO SCH (22:09)
[2017-05-25] MEDS: MONTELUKAST SODIUM 10MG TABLET PO SCH (22:09)
[2017-05-26] MEDS: HYDRALAZINE HCL 25 MG TABLET PO SCH ×4 (00:03→17:41)
[2017-05-26] MEDS: LEVOTHYROXINE SODIUM 175 MCG TABLET PO SCH (06:08)
[2017-05-26] MEDS: NOVOLOG FLEXPEN (INSULIN ASPART) 100 UNITS/ML SQ SCH ×3 (08:26→17:36)
[2017-05-26] MEDS: BREO (FLUTICASONE/VILANTEROL) 200MCG/25MCG INHALER INH SCH (09:49)
[2017-05-26] MEDS: BIFIDOBACTERIUM INFANTIS 4 MG CAPSULE PO SCH (10:25)
[2017-05-26] MEDS: ASPIRIN 81 MG TABEC PO SCH (10:26)
[2017-05-26] MEDS: POTASSIUM CHLORIDE 20 MEQ TABLET PO SCH ×2 (10:26→22:00)
[2017-05-26] MEDS: FUROSEMIDE IV 40MG/4ML VIAL IVP SCH (10:26)
[2017-05-26] MEDS: LEVEMIR FLEXTOUCH 100 UNIT/ML INSULIN PEN SQ SCH (10:27)
[2017-05-26] MEDS: ENOXAPARIN 40 MG/0.4 ML SYR SQ SCH (10:28)
[2017-05-26] MEDS: NEBIVOLOL 10 MG PO SCH ×2 (10:29→21:59)
[2017-05-26] MEDS: CLOPIDOGREL 75MG TABLET PO SCH (10:29)
[2017-05-26] MEDS: ATORVASTATIN 20 MG TABLET PO SCH (10:29)
[2017-05-26] MEDS: ISOSORBIDE MONONITRATE 30 MG TAB.ER.24H PO SCH (10:31)
[2017-05-26] MEDS: LEVOFLOXACIN 500 MG TABLET PO SCH (10:31)
[2017-05-26] MEDS: LISINOPRIL 20 MG TABLET PO SCH ×2 (10:31→21:59)
[2017-05-26] MEDS ORDERED: ENOXAPARIN 100 MG/ML SYR SQ ONE (14:04)
[2017-05-26] MEDS: OXYCODONE HCL/APAP 5MG/325MG TABLET PO PRN (21:59)
[2017-05-26] MEDS: TERAZOSIN HCL 1 MG CAPSULE PO SCH (21:59)
[2017-05-26] MEDS ORDERED: ENOXAPARIN 100 MG/ML SYR SQ SCH (22:00)
[2017-05-26] MEDS: ROPINIROLE HCL 1 MG TABLET PO SCH (22:00)
[2017-05-26] MEDS: MONTELUKAST SODIUM 10MG TABLET PO SCH (22:00)
[2017-05-27] MEDS: HYDRALAZINE HCL 25 MG TABLET PO SCH ×3 (00:05→12:04)
[2017-05-27] MEDS: LEVOTHYROXINE SODIUM 175 MCG TABLET PO SCH (06:02)
[2017-05-27] MEDS: NOVOLOG FLEXPEN (INSULIN ASPART) 100 UNITS/ML SQ SCH ×2 (07:31→11:32)
[2017-05-27] MEDS: ISOSORBIDE MONONITRATE 30 MG TAB.ER.24H PO SCH (09:53)
[2017-05-27] MEDS: ASPIRIN 81 MG TABEC PO SCH (09:53)
[2017-05-27] MEDS: POTASSIUM CHLORIDE 20 MEQ TABLET PO SCH (09:53)
[2017-05-27] MEDS: LISINOPRIL 20 MG TABLET PO SCH (09:53)
[2017-05-27] MEDS: CLOPIDOGREL 75MG TABLET PO SCH (09:53)
[2017-05-27] MEDS: LEVOFLOXACIN 500 MG TABLET PO SCH (09:53)
[2017-05-27] MEDS: BIFIDOBACTERIUM INFANTIS 4 MG CAPSULE PO SCH (09:53)
[2017-05-27] MEDS: LEVEMIR FLEXTOUCH 100 UNIT/ML INSULIN PEN SQ SCH (09:54)
[2017-05-27] MEDS ORDERED: FUROSEMIDE 40 MG TABLET PO SCH (10:00)
[2017-05-27] MEDS ORDERED: ENOXAPARIN 100 MG/ML SYR SQ SCH (10:00)
[2017-05-27] MEDS: BREO (FLUTICASONE/VILANTEROL) 200MCG/25MCG INHALER INH SCH (10:07)
[2017-05-27] MEDS: NEBIVOLOL 10 MG PO SCH (10:10)
[2017-05-27] MEDS: ATORVASTATIN 20 MG TABLET PO SCH (10:10)
--- NOTE | 2017-05-27 12:26 | US VENOUS DOPPLER REPORT ---
EXAM: VENOUS DOPPLER ULTRASOUND OF THE RIGHT LOWER EXTREMITY HISTORY: PAINFUL RIGHT LEG, SWELLING, DIURETICS NOT HELPING, POSSIBLE DVT. TECHNIQUE: Venous Doppler ultrasound of the right lower extremity was performed with the venous anatomy evaluated from the level of the upper common femoral vein down through the calf to the ankle. Color flow and spectral analysis was performed throughout and at the level of the thigh and popliteal region, compression and flow augmentation maneuvers were also utilized, although the food products tester notes that there was some limitation in compression maneuvers due to the patient having a very sensitive right lower leg. Comparison: Right sided images from the bilateral venous Doppler ultrasound of 11/04/15. FINDINGS: No DVT identified in the right lower extremity. Flow is seen throughout. Compressibility and flow augmentation was demonstrated in the popliteal and thigh regions. IMPRESSION: NEGATIVE VENOUS DOPPLER ULTRASOUND OF THE RIGHT LOWER EXTREMITY WITH NO DVT IDENTIFIED. JOB NUMBER: [id number] MTDD
--- NOTE | 2017-05-27 12:32 | US UNI ARTERIAL DOPPLER REPORT ---
EXAM: EMERGENCY ARTERIAL DOPPLER ULTRASOUND OF THE RIGHT LOWER EXTREMITY HISTORY: PAINFUL RIGHT LOWER LEG WITH SWELLING. TECHNIQUE: Sonographic evaluation of the arterial system of the right lower extremity was performed with the addition of Doppler and spectral analysis. Images were obtained with the vascular probe oriented 60 degrees. Comparison: Right sided views of the bilateral lower extremity arterial Doppler ultrasound dated 02/10/13. FINDINGS: 3 Right Waveform Common Femoral Artery 149 cm/s Triphasic Profunda Femoral Artery 87 cm/s Biphasic Proximal Superficial Femoral Artery 169 cm/s Biphasic Mid Superficial Femoral Artery 133 cm/s Biphasic Distal Superficial Femoral Artery 127 cm/s Biphasic Popliteal Artery 104 cm/s Biphasic Anterior Tibial Artery 172 cm/s Monophasic Posterior Tibial Artery 171 cm/s Monophasic Peroneal Artery 51 cm/s Monophasic Dorsalis Pedis Artery 44 cm/s Monophasic The ankle brachial index on the right was 0.78. When the images themselves are reviewed, there are scattered areas of a small amount of calcified plaque particularly in the superficial femoral artery. IMPRESSION: 1. MILDLY DEPRESSED ANKLE BRACHIAL INDEX OF 0.78. 2. MONOPHASIC WAVEFORMS IN THE RUN-OFF VESSELS OF THE CALF WITH RELATIVELY ELEVATED VELOCITY IN THE ANTERIOR AND POSTERIOR TIBIALS WELL. FINDINGS ARE CONSISTENT WITH MILD DEGREE OF STENOSIS, LESS THAN 50%. JOB NUMBER: [id number] MTDD
--- NOTE | 2017-05-27 13:32 | Discharge Note ---
VTE H&P Assessment - Risk for VTE Risk for VTE: Yes Risk Level: Moderate Risk Assessment Date: 05/21/17 Risk Assessment Time: 19:00 VTE Orders Placed or Will Be Placed: Yes Discharge Medications - Discharge Medications Prescriptions: Furosemide [Lasix] 40 mg PO DAILY #30 tablet Levofloxacin [Levaquin] 500 mg PO DAILY #7 tablet Potassium Chloride [Klor-Con] 20 meq PO DAILY #30 tab.prt.sr Home Medications: Ambulatory Orders Atorvastatin Calcium [Lipitor] 40 mg PO DAILY 05/01/14 [Last Taken 08/12/16] Budesonide/Formoterol Fumarate [Symbicort 160-4.5 Mcg Inhaler] 2 puff IH BID [Last Taken 08/12/16] Insulin Glargine,Hum.rec.anlog [Lantus Solostar] 48 units SQ QAM 05/01/14 [Last Taken 08/12/16] Levothyroxine Sodium [Synthroid] 175 mcg PO DAILYTHY 05/01/14 [Last Taken ] Lisinopril [Zestril] 20 mg PO BID 05/01/14 [Last Taken 08/12/16] Nebivolol HCl [Bystolic] 10 mg PO BID 05/01/14 [Last Taken 08/12/16] Ropinirole HCl 2 mg PO QHS 05/01/14 [Last Taken 08/12/16] Baclofen [Lioresal] 10 mg PO TID PRN #0 tab 07/16/15 [Last Taken 08/12/16] Clopidogrel Bisulfate [Plavix] 75 mg PO DAILY tab 07/16/15 [Last Taken 08/12/16 ] Montelukast Sodium [Singulair] 10 mg PO QHS 05/24/16 [Last Taken 08/12/16] Isosorbide Mononitrate [Imdur] 30 mg PO DAILY 08/13/16 [Last Taken 08/13/16] Albuterol Sulfate [Ventolin Hfa] 2 puff IH ASDIR 05/21/17 [Last Taken Unknown] Aspirin [Aspirin EC] 81 mg PO DAILY 05/21/17 [Last Taken Unknown] Hydralazine HCl 50 mg PO Q6H 05/21/17 [Last Taken Unknown] Oxycodone HCl/Acetaminophen [Percocet 5mg/325mg] 1 udtab PO QHS PRN 05/21/17 [ Last Taken Unknown] Terazosin HCl 5 mg PO QHS 05/21/17 [Last Taken Unknown] Acetaminophen [Tylenol 500Mg Tab] 500 mg PO Q6H PRN tablet 05/27/17 [Last Taken Unknown] Benzonatate [Tessalon Perles] 100 mg PO TID PRN capsule 05/27/17 [Last Taken Unknown] Furosemide [Lasix] 40 mg PO DAILY #30 tablet 05/27/17 [Last Taken Unknown] Levofloxacin [Levaquin] 500 mg PO DAILY #7 tablet 05/27/17 [Last Taken Unknown] Oxycodone HCl/Acetaminophen [Percocet 5mg/325mg] 1 udtab PO Q8H PRN tablet [Last Taken Unknown] Potassium Chloride [Klor-Con] 20 meq PO DAILY #30 tab.prt.sr 05/27/17 [Last Taken Unknown] Discharge Note - Date Date of Discharge Note: 05/27/17 Disposition: Home, Self-Care Condition: (2) Stable Instructions: Heart Failure (DC), Pneumonitis (DC), Low-Sodium Diet (DC) Additional Instructions: follow up with Dr. Lebron in one week please call office and set up an appointment lasix 40 mg one a day stop edecrin potassium chloride one a day Referrals: PB COY M.D. [Primary Care Provider] - Forms: Patient Portal Access
--- NOTE | 2017-05-28 09:50 | Discharge Summary ---
DATE: 05/27/2017 DISCHARGE DIAGNOSES: 1. Acute bronchitis. 2. Diastolic congestive heart failure. 3. Right leg pain with mild peripheral arterial disease. 4. Resistant hypertension. 5. Renal artery stenosis. 6. Diabetes mellitus type 2. 7. Status post hyperlipidemia. 8. Hypothyroidism. 9. History of pulmonary embolism with a filter in her aorta. 10. Neuropathy of her legs. 11. Osteoarthritis. 12. Restless leg syndrome. ATTENDING PHYSICIAN: Pritesh Lebron DO REASON FOR HOSPITALIZATION: This 77-year-old female had a chief complaint of dyspnea, cough, congestion, weight gain of 15 pounds. She was being evaluated in the clinic by Dr. Keysha Jeff the paper bags sewing machine operator who was concerned about her cough, severe breathing problems. Brought her to the emergency department for evaluation. Dr. Snow evaluated her. Admitted to the hospital because of dyspnea, bronchitis, possible fluid retention, diastolic congestive heart failure. She also is concerned because Dr. Lockett is her primary doctor who just retired 05/12/2017. She does not have a primary set up at this point. The cough started about a week ago. She was admitted to the hospital for IV diuresis, IV antibiotics, and further evaluation. SIGNIFICANT FINDINGS: X-rays. A chest x-ray showed cardiomegaly with coarse bilateral interstitial changes which may reflect interstitial edema or pneumonitis, tiny effusion, and pleural thickening. EKG showing sinus rhythm. No acute ST-T-wave changes. Nonspecific interventricular conduction delay. Influenza A and B were negative. WBC initially was 5100, hemoglobin 11.1, potassium 4.6. She had 2 sets of cardiac enzymes which were negative. Her brain natriuretic peptide was elevated at 3698. BUN 18, creatinine 0.8. The last set of electrolytes, potassium was 4.3, sodium 136, chloride 97, BUN 21, creatinine 1.1. Her glucose has been running reasonably well throughout the hospitalization, 140-180. She had a venous Doppler on the day of discharge which is negative for DVT. She was having right leg calf pain. She also had arterial Dopplers done on both legs. The right leg shows mild peripheral arterial disease less than 50%. May be some of the cause for the pain in her right calf. Could also be neuropathy. THERAPY PROVIDED: The patient was initially diuresed with Lasix twice a day. Dropped down to once a day and she was given oral Lasix on the day of discharge. She stated that the Edecrin was no longer working at home. We will not start the Edecrin back up again. HOSPITAL COURSE: The patient gradually improved. The cough got better. The sputum got better. She was feeling much better on the day of discharge. CONDITION ON DISCHARGE: Much improved. DISCHARGE INSTRUCTIONS: Follow up with Dr. Lebron in 7 days. We will stop the Edecrin. Levaquin 500 mg a day for 7 more days. Klor-Con 20 mEq once a day. Lasix 40 mg once a day. We will continue her home medications of terazosin 5 mg at bedtime, Requip 2 mg at bedtime, lisinopril 20 mg b.i.d., Ventolin 2 puffs 4 times a day, hydralazine 50 mg q.6 h., aspirin 81 mg daily, baclofen 10 mg t.i.d., Lipitor 40 mg daily, Lantus 48 units q.a.m. We will stop the Edecrin. Plavix 75 mg daily. Symbicort 160/4.5 two puffs b.i.d. Synthroid 175 mcg daily. Isosorbide mononitrate (Imdur) 30 mg daily. Singulair 10 mg at bedtime. Percocet 5 mg; she states she takes that 1/2 to 1 pill every now and then for her back and leg pain. I recommend she only use 1/2 a pill and we are going to need to think about stopping this medication because it is high-risk medication. Bystolic 10 mg b.i.d. Klor-Con K 20 mEq once a day. INPATIENT CERTIFICATION: Admit to inpatient. Based on my medical assessment, after consideration of patient's risk factors, age, comorbidities, and patient's presenting symptoms and acuity, I expect that this patient will remain in the hospital greater than or equal to 2 midnights and that the services needed warrant inpatient care because of difficulties breathing, hypoxia, bronchitis, congestive heart failure. Estimated length of stay is 3-5 days. The patient may reasonably be expected to be discharged or transferred to a hospital within 96 hours after admission to [facility]. I certify that my determination is in accordance with my understanding of Medicare requirements for reasonable and necessary inpatient services. CHAVO
== END 2017-05-27 14:14 | disposition home or self-care (01) | DRG 202 ==
LOC: ER 15:02 → MEDSURG 20:55
PROVIDERS: ADMIT Emergency Medicine; ATTEND Emergency Medicine
DX: J20.9 Acute bronchitis, unspecified (principal); I50.33 Acute on chronic diastolic (congestive) heart failure; I25.10 Atherosclerotic heart disease of native coronary artery without angina pectoris; I70.1 Atherosclerosis of renal artery; E11.9 Type 2 diabetes mellitus without complications; E78.5 Hyperlipidemia, unspecified; E03.9 Hypothyroidism, unspecified; Z86.711 Personal history of pulmonary embolism; Z79.01 Long term (current) use of anticoagulants; Z98.890 Other specified postprocedural states; G57.93 Unspecified mononeuropathy of bilateral lower limbs; G25.81 Restless legs syndrome; Z89.422 Acquired absence of other left toe(s); Z87.891 Personal history of nicotine dependence
CPT/HCPCS: 36416; 71046; 80048; 82550; 82553; 82947; 82948; 83735; 83880; 84484; 85025; 85610; 85730; 87400; 93005; 93010; 93041; 94640; 96374; 99223; 99233; 99239; 99285; J1650; J1940

== ENCOUNTER 2017-06-02 16:45 | Emergency (ER) | payer MEDICARE, BC ==
[2017-06-02] MEDS ORDERED: METHYLPREDNISOLONE PF 125MG/VIAL IVP ONE (17:21)
[2017-06-02] MEDS ORDERED: IPRATROPIUM/ALBUTEROL (0.5MG/3MG) NEB INH ONE ×2 (17:21→20:07)
[2017-06-02] MEDS ORDERED: FUROSEMIDE IV 40MG/4ML VIAL IVP ONE (17:24)
[2017-06-02 18:00] LABS: BASO % 0.1 % (0-6); GRAN % 76.7 % (47-80); LYMPH % 11.6 % (16-45); MEAN CELL VOLUME 90.9 fl (81-97); MEAN CORPUSCULAR HEMOGLOBIN 30.3 pg (27-33); MEAN CORPUSCULAR HGB CONC 33.3 g/dl (32-36); MEAN PLATELET VOLUME 11.4 fl (7.4-10.4); MONO % 11.6 % (0-9); PLATELET COUNT 163 K/uL (130-400); RED BLOOD COUNT 3.63 M/uL (3.80-5.40); WHITE BLOOD COUNT W/O DIFF 6.8 K/uL (4.2-12.2)
[2017-06-02 18:16] LABS: INFLUENZA A NEGATIVE (NEGATIVE); INFLUENZA B NEGATIVE (NEGATIVE)
[2017-06-02 18:28] LABS: CKMB 1.1 ng/mL (<3.77)
[2017-06-02 18:37] LABS: BLOOD UREA NITROGEN 18 mg/dL (8-23); CREATININE 0.9 mg/dL (0.5-0.9); EST GLOMERULAR FILTRATION RATE > 60 mL/min
--- NOTE | 2017-06-02 18:37 | Emergency Department Record ---
History of Present Illness - General Chief Complaint: Dizziness Stated Complaint: TERRENCE,DIZZINESS Time Seen by Provider: 06/02/17 17:52 Source: Patient Mode of Arrival: Wheelchair - History of Present Illness Initial Comments: cough and more sob for two days and she was discharged from hospital 6 days ago for CHF. She is coughing up brown sputum and wheezing. 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, hypothyroidism and COPD Onset/Timin -: Days(s) Timing: Constant History of Same: Yes ("not this bad") History of Trauma: No Improves With: Remaining still, Rest Worsens With: Movement, Exertion Associated Symptoms: Cough - [place] Coma Scale Eye Response: (4) Open spontaneously Motor Response: (6) Obeys commands Verbal Response: (5) Oriented [place] Total: 15 - Related Data Previous Rx's Medication Instructions Recorded Baclofen [Lioresal] 10 mg PO TID PRN #0 tab 07/16/15 Clopidogrel Bisulfate [Plavix] 75 mg PO DAILY tab 07/16/15 Acetaminophen [Tylenol 500Mg Tab] 500 mg PO Q6H PRN tablet 05/27/17 Furosemide [Lasix] 40 mg PO DAILY #30 tablet 05/27/17 Levofloxacin [Levaquin] 500 mg PO DAILY #7 tablet 05/27/17 Potassium Chloride [Klor-Con] 20 meq PO DAILY #30 tab.prt.sr 05/27/17 Allergies Allergy/AdvReac Type Severity Reaction Status Date / Time adenosine Allergy Intermediate HYPERSENSIT Verified 06/02/17 17:17 IVITY alprazolam [From XANAX] Allergy Intermediate RASH Verified 06/02/17 17:17 azithromycin [AZITHROMYCIN] Allergy Intermediate RASH Verified 06/02/17 17:17 cefaclor Allergy Intermediate RASH Verified 06/02/17 17:17 clonidine HCl [From CATAPRES] Allergy Intermediate RASH Verified 06/02/17 17:17 codeine [CODEINE] Allergy Intermediate RASH Verified 06/02/17 17:17 diclofenac sodium Allergy Intermediate RASH Verified 06/02/17 17:17 [From VOLTAREN] dipyridamole Allergy Intermediate RASH Verified 06/02/17 17:17 [From PERSANTINE] doxycycline calcium Allergy Intermediate RASH Verified 06/02/17 17:17 [From VIBRAMYCIN] doxycycline hyclate Allergy Intermediate RASH Verified 06/02/17 17:17 [From VIBRAMYCIN] doxycycline monohydrate Allergy Intermediate RASH Verified 06/02/17 17:17 [From VIBRAMYCIN] duloxetine HCl Allergy Intermediate HIVES Verified 06/02/17 17:17 [From CYMBALTA] estrogens, conjugated Allergy Intermediate HIVES Verified 06/02/17 17:17 [From PREMARIN] gabapentin [From NEURONTIN] Allergy Intermediate HIVES Verified 06/02/17 17:17 hydrocodone [HYDROCODONE] Allergy Intermediate HIVES Verified 06/02/17 17:17 lactose [LACTOSE] Allergy Intermediate HIVES Verified 06/02/17 17:17 pentoxifylline [From TRENTAL] Allergy Intermediate HIVES Verified 06/02/17 17:17 pregabalin [From LYRICA] Allergy Intermediate HIVES Verified 06/02/17 17:17 promethazine HCl Allergy Intermediate HIVES Verified 06/02/17 17:17 [From PHENERGAN] sulfamethoxazole Allergy Intermediate HIVES Verified 06/02/17 17:17 [From SEPTRA] tramadol HCl [From ULTRAM] Allergy Intermediate HIVES Verified 06/02/17 17:17 trimethoprim [From SEPTRA] Allergy Intermediate HIVES Verified 06/02/17 17:17 venlafaxine HCl Allergy Intermediate HIVES Verified 06/02/17 17:17 [From EFFEXOR] Travel Screening - Travel/Exposure Within Last 30 Days Have you traveled within the last 30 days?: No - Travel/Exposure Within Last Year Have you traveled outside the [place] in the last year?: No - Additonal Travel Details Have you been exposed to anyone with a communicable illness?: No - Travel Symptoms Symptom Screening: None Review of Systems Reviewed: No additional complaints except as noted below Constitutional: Reports: As per HPI. Denies: Chills, Fever, Malaise, Night sweats, Weakness, Weight change Eyes: Reports: As per HPI. Denies: Eye discharge, Eye pain, Photophobia, Vision change ENT: Reports: As per HPI, Congestion. Denies: Dental pain, Ear pain, Epistaxis , Hearing loss, Throat pain Respiratory: Reports: As per HPI, Cough, Dyspnea. Denies: Hemoptysis, Stridor, Wheezes Cardiovascular: Reports: As per HPI, Orthopnea. Denies: Arrhythmia, Chest pain , Dyspnea on exertion, Edema, Murmurs, Palpitations, Paroxysmal nocturnal dyspnea, Rheumatic Fever, Syncope Endocrine: Reports: As per HPI. Denies: Fatigue, Heat or cold intolerance, Polydipsia, Polyuria Gastrointestinal: Reports: As per HPI. Denies: Abdominal pain, Constipation, Diarrhea, Hematemesis, Hematochezia, Melena, Nausea, Vomiting Genitourinary: Reports: As per HPI. Denies: Abnormal menses, Discharge, Dyspareunia, Dysuria, Frequency, Hematuria, Incontinence, Retention, Urgency Musculoskeletal: Reports: As per HPI. Denies: Arthralgia, Back pain, Gout, Joint swelling, Myalgia, Neck pain Skin: Reports: As per HPI. Denies: Bruising, Change in color, Change in hair/ nails, Lesions, Pruritus, Rash Neurological: Reports: As per HPI. Denies: Abnormal gait, Confusion, Headache, Numbness, Paresthesias, Seizure, Tingling, Tremors, Vertigo, Weakness Psychiatric: Reports: As per HPI. Denies: Anxiety, Auditory hallucinations, Depression, Homicidal thoughts, Suicidal thoughts, Visual hallucinations Hematological/Lymphatic: Reports: As per HPI. Denies: Anemia, Blood Clots, Easy bleeding, Easy bruising, Swollen glands Past Medical History - SOCIAL HISTORY Smoking Status: Former smoker Alcohol Use: None Drug Use: None - RESPIRATORY Hx Respiratory Disorders: Yes Hx Asthma: Yes Hx Bronchitis: No Hx COPD: No Hx Dyspnea: Yes Hx Pneumonia: Yes Hx Pulmonary Embolism: Yes (x3) Hx Sleep Apnea: No Hx Tuberculosis: No - CARDIOVASCULAR Hx Cardio Disorders: Yes Hx Abnormal EKG: Yes Hx Cardiac Cath: Yes Hx Chest Pain: Yes Hx CHF: Yes Hx Deep Vein Thrombosis: Yes Hx Edema: Yes Hx Heart Attack: Yes Hx Hypertension: Yes Hx Hypotension: No Hx Irregular Heartbeat: No Hx Palpitations: No Hx Pacemaker/Defib: No Hx Vascular Disease: No - NEURO Hx Neuro Disorders: Yes Hx Brain Tumor: No Hx CVA: Yes (x2) Hx Dementia: No Hx Dizziness: Yes Hx Headaches: Yes Hx Neuropathy: Yes (BLE) Hx Parkinson's Disease: No Hx Seizures: No Hx Speech Problem: No Hx TIA: Yes (x2) - GI Hx GI Disorders: Yes Hx Abdominal Pain: Yes Hx Celiac Disease: No Hx Crohn's Disease: No Hx Diverticulitis: Yes Hx GI Bleed: Yes Hx Reflux: No Hx Hepatitis/Jaundice: No Hx Hiatal Hernia: No Hx Irritable Bowel: Yes Hx Liver Disease: No Hx Nausea/Vomiting: Yes Hx Obstructive Bowel: Yes Hx Pancreatitis: No Hx Rectal Bleeding: Yes Hx Ulcer: No Hx Wt Loss/Wt Gain: No - Hx Genitourinary Disorders: Yes Hx Bladder Problem: Yes (incontinence) Hx Dialysis: No Hx Kidney Stones: Yes Hx Renal Disease: No Hx UTI: No - ENDOCRINE Hx Endocrine Disorders: Yes Hx Diabetes: Yes Hx Thyroid Disease: Yes - MUSCULOSKELETAL Hx Musculoskeletal Disorders: Yes Hx Arthritis: Yes Hx Back Injury: No Hx Fibromyalgia: Yes Hx Gout: No Hx Musculoskeletal Disease: No Hx Osteoporosis: No Comment:: restless leg syndrome - PSYCH Hx Psych Problems: Yes Hx Anxiety: No Hx Behavior Problems: No Hx Depression: No Hx Emotional Abuse: No Hx Sexual Abuse: No Hx Suicide Attempt: No - HEMATOLOGY/ONCOLOGY Hx Hematology/Oncology Disorders: Yes Hx Anemia: Yes Hx Bruising: Yes Hx Cancer: No Hx Clotting Problems: Yes Hx Sickle Cell Disease: No Hx Unexplained Bleeding: Yes Hx Blood Transfusions: Yes Hx Blood Transfusion Reaction: Yes Family Medical History Any Significant Family History?: Yes Hx Cancer: Mother Hx Heart Disease: Father, Mother Hx HTN: Father, Mother Physical Exam - General General Appearance: Alert, Oriented x3, Cooperative, Moderate distress - Head Head exam: Normal inspection - Eye Eye exam: Normal appearance, PERRL Pupils: Normal accommodation - ENT ENT exam: Normal exam, Mucous membranes moist, Normal external ear exam, Normal orophraynx, TM's normal bilaterally Ear exam: Normal external inspection. negative: External canal tenderness Nasal Exam: Normal inspection. negative: Discharge, Sinus tenderness Mouth exam: Normal external inspection, Tongue normal Teeth exam: Normal inspection. negative: Dental caries Throat exam: Normal inspection. negative: Tonsillar erythema, Tonsillar exudate - Neck Neck exam: Normal inspection, Full ROM. negative: Tenderness - Respiratory Respiratory exam: Accessory muscle use, Wheezes. negative: Respiratory distress - Cardiovascular Cardiovascular Exam: Regular rate, Normal rhythm, Normal heart sounds - GI/Abdominal GI/Abdominal exam: Soft, Normal bowel sounds. negative: Tenderness - Rectal Rectal exam: Deferred - exam: Deferred - Extremities Extremities exam: Normal inspection, Full ROM, Normal capillary refill. negative: Tenderness - Back Back exam: Reports: Normal inspection, Full ROM. Denies: Muscle spasm, Rash noted, Tenderness - Neurological Neurological exam: Alert, Normal gait, Oriented X3, Reflexes normal - Psychiatric Psychiatric exam: Normal affect, Normal mood - Skin Skin exam: Dry, Intact, Normal color, Warm Course Vital Signs 06/02/17 06/02/17 17:25 17:28 Temperature 99.4 F Pulse Rate 76 64 Respiratory 24 21 Rate Blood Pressure 141/57 Pulse Ox 97 97 - Reevaluation(s) Reevaluation #1: discussed case with Dr Vogel at [facility] and will transfer to [facility]. 06/02/17 19:15 Reevaluation #2: patient had a dose of levaquin this morning 06/02/17 19:18 Medical Decision Making - Lab Data Result diagrams: 06/02/17 17:35 06/02/17 17:35 Lab Results 06/02/17 06/02/17 Range/Units 17:35 17:35 WBC 6.8 (4.2-12.2) K/uL RBC 3.63 L (3.80-5.40) M/uL Hgb 11.0 L (11.6-16.0) gm/dl Hct 33.0 L (35.0-47.0) % MCV 90.9 (81-97) fl MCH 30.3 (27-33) pg MCHC 33.3 (32-36) g/dl RDW 14.0 (11.5-14.5) % Plt Count 163 (130-400) K/uL MPV 11.4 H (7.4-10.4) fl Gran % 76.7 (47-80) % Lymphocytes % 11.6 L (16-45) % Monocytes % 11.6 H (0-9) % Eosinophils % 0.0 (0-6) % Basophils % 0.1 (0-6) % Influenza Type A Ag Negative (NEGATIVE) Influenza Type B Ag Negative (NEGATIVE) Disposition Clinical Impression: CHF (congestive heart failure) Qualifiers: Congestive heart failure type: combined Congestive heart failure chronicity: acute Qualified Code(s): I50.41 - Acute combined systolic (congestive) and diastolic (congestive) heart failure T2DM (type 2 diabetes mellitus) Qualifiers: Diabetes mellitus complication status: without complication Diabetes mellitus [facility] insulin use: with parts counterman use Qualified Code(s): E11.9 - Type 2 diabetes mellitus without complications Dyspnea Qualifiers: Dyspnea type: shortness of breath Qualified Code(s): R06.02 - Shortness of breath Disposition: Acute Care Hospital Transfer Condition: (2) Stable Forms: Patient Portal Access Time of Disposition: 19:19 Quality - Quality Measures Quality Measures: N/A - Blood Pressure Screening Does Patient Have Any of the Following: No, Active Dx of HTN Blood Pressure Classification: Hypertensive Reading Systolic Measurement: 141 Diastolic Measurement: 57 Screening for High Blood Pressure: Patient Exclusion, Hx of HTN [[id number]]
[2017-06-02 18:40] LABS: GLUCOSE,RANDOM 143 mg/dL (74-109)
--- NOTE | 2017-06-03 07:58 | RADIOLOGY REPORT ---
EXAM: PORTABLE CHEST HISTORY: DIFFICULTY IN BREATHING. TECHNIQUE: A portable AP semi-upright view of the chest was performed. FINDINGS: There is cardiomegaly with mild pulmonary vascular congestion. No infiltrate or pleural effusion. IMPRESSION: CARDIOMEGALY WITH MILD PULMONARY VASCULAR CONGESTION. JOB NUMBER: [id number] MTDD
== END 2017-06-02 20:36 | disposition short-term general hospital (02) ==
LOC: ER 16:45
DX: I50.41 Acute combined systolic (congestive) and diastolic (congestive) heart failure (principal); E11.9 Type 2 diabetes mellitus without complications; J44.9 Chronic obstructive pulmonary disease, unspecified; R06.02 Shortness of breath; R42 Dizziness and giddiness; I10 Essential (primary) hypertension; E03.9 Hypothyroidism, unspecified; I25.2 Old myocardial infarction; Z79.4 Long term (current) use of insulin; Z87.891 Personal history of nicotine dependence
CPT/HCPCS: 71045; 80048; 82553; 84484; 85025; 87400; 93005; 93010; 94640; 96374; 96375; 99285; J1940; J2930

== ENCOUNTER 2017-10-24 08:07 | Day surgery (SDC) | payer MEDICARE, BC ==
[2017-10-24] MEDS ORDERED: PROPOFOL 10 MG/ML VIAL IV ONE (08:08)
[2017-10-24] MEDS ORDERED: FENTANYL PF 100MCG/2ML VIAL IV ONE (08:08)
[2017-10-24] MEDS ORDERED: LIDOCAINE 2% MDV (20MG/ML) 20ML VIAL IV ONE (08:08)
--- NOTE | 2017-10-25 13:10 | Operative Note ---
DATE OF SURGERY: 10/24/2017 OPERATION: 1. ESOPHAGOGASTRODUODENOSCOPY with biopsy. 2. FLEXIBLE SIGMOIDOSCOPY with biopsy. PREOPERATIVE DIAGNOSIS: Dysphagia and diarrhea. POSTOPERATIVE DIAGNOSES: 1. Distal esophageal ulcers of unclear significance. 2. Nonspecific gastritis, possibly bile reflux-induced. 3. Normal flexible sigmoidoscopy, rule out microscopic colitis. PROCEDURE: After informed consent was obtained from the patient, she was placed in the left lateral decubitus position in the endoscopy suite, sedated and monitored by the department of anesthesia. A well-lubricated [id number] gastroscope was placed in the posterior oropharynx and under direct visualization passed to the proximal esophagus. The endoscope was advanced through the proximal, mid, and distal esophagus. In the distal esophagus proximal to the GE junction, there were noted to be some ulcerations located circumferentially but in a linear distribution of unclear significance. There perhaps was maybe some mild narrowing. This area did not distend normally. The remainder of the GE junction was unremarkable. The gastric body and antrum demonstrated diffuse erythematous changes suggestive of bile reflux change. The pylorus, duodenal bulb, and sweep were unremarkable. J-turn views of the proximal stomach were unremarkable. The endoscope was straightened and random gastric biopsies were obtained. The endoscope was removed from the patient with no new findings noted. Digital rectal exam was unremarkable. A well-lubricated [id number] colonoscope was inserted into the rectum and advanced to the level of the splenic flexure. The mucosa of the descending colon, splenic flexure, sigmoid colon, and rectum was unremarkable. Random biopsies were obtained for histology in particular to rule out microscopic colitis. No excessive bleeding was noted. The scope was not inverted at this time. RECOMMENDATIONS: We will await the results of tissue histology. In the meantime, we will have the patient undergo an esophagram. She should be on a proton pump inhibitor daily. Repeat upper endoscopy in 8 weeks will be performed. As always, thank you for allowing me to participate in the healthcare of your patients. CC: MD CHAVO Rosenthal
== END 2017-10-24 10:22 | disposition home or self-care (01) ==
LOC: HOP 08:07
PROVIDERS: ATTEND Internal Medicine Gastroenterology
DX: R13.10 Dysphagia, unspecified (principal); R19.7 Diarrhea, unspecified; K22.10 Ulcer of esophagus without bleeding; K29.70 Gastritis, unspecified, without bleeding; I10 Essential (primary) hypertension; G25.81 Restless legs syndrome; E11.9 Type 2 diabetes mellitus without complications; Z79.4 Long term (current) use of insulin; E78.00 Pure hypercholesterolemia, unspecified; Z79.01 Long term (current) use of anticoagulants; G62.9 Polyneuropathy, unspecified; J45.909 Unspecified asthma, uncomplicated

== ENCOUNTER 2017-11-09 22:26 | Emergency (ER) | payer MEDICARE, BC ==
[2017-11-09] MEDS ORDERED: 0.9 % SODIUM CHLORIDE 1000ML 1,000 ML IV SCH (22:30)
[2017-11-09] MEDS ORDERED: DEXTROSE 5 %-0.45 % NACL 1,000 ML IV PRN (22:31)
--- NOTE | 2017-11-09 22:43 | Emergency Department Record ---
History of Present Illness - General Chief complaint: Hypogylcemia Stated complaint: DIABETIC Time Seen by Provider: 11/09/17 22:28 Source: Patient, EMS Mode of Arrival: EMS Limitations: No limitations - History of Present Illness Initial comments: 77 yo female presents to ED for evaluation of unrepsonsiveness that occurred just prior to arrival. called EMD when he was unable to rouse the patient this evening, found her lying on the bed and not responding to voice. Accu check on scene was found to be 16, given (2) Amps of glucose prior to arrival with increase of her glucose to 160's. On arrival to the ED, accu- check is down to 89. Patient awakens to voice, reports only "I don't feel well ". Patient denies focal weakness on examination, and is able to awaken and tell us that she has been preparing for family reunion tomorrow for 40 people, may have over-exerted herself. MD Complaint: Generalized weakness Onset/Timin -: Hour(s) Location: Generalized Consistency: Constant Improves with: Other (With glucose) Worsens with: None Associated Symptoms: Denies other symptoms - [place] Coma Scale Eye Response: (4) Open spontaneously Motor Response: (6) Obeys commands Verbal Response: (5) Oriented [place] Total: 15 - Related Data Previous Rx's Medication Instructions Recorded Clopidogrel Bisulfate [Plavix] 75 mg PO DAILY tab 07/16/15 Acetaminophen [Tylenol 500Mg Tab] 500 mg PO Q6H PRN tablet 05/27/17 Potassium Chloride [Klor-Con] 20 meq PO DAILY #30 tab.prt.sr 05/27/17 Allergies Allergy/AdvReac Type Severity Reaction Status Date / Time adenosine Allergy Intermediate HYPERSENSIT Verified 11/10/17 00:31 IVITY alprazolam [From XANAX] Allergy Intermediate RASH Verified 11/10/17 00:31 azithromycin [AZITHROMYCIN] Allergy Intermediate RASH Verified 11/10/17 00:31 cefaclor Allergy Intermediate RASH Verified 11/10/17 00:31 clonidine HCl [From CATAPRES] Allergy Intermediate RASH Verified 11/10/17 00:31 codeine [CODEINE] Allergy Intermediate RASH Verified 11/10/17 00:31 diclofenac sodium Allergy Intermediate RASH Verified 11/10/17 00:31 [From VOLTAREN] dipyridamole Allergy Intermediate RASH Verified 11/10/17 00:31 [From PERSANTINE] doxycycline calcium Allergy Intermediate RASH Verified 11/10/17 00:31 [From VIBRAMYCIN] doxycycline hyclate Allergy Intermediate RASH Verified 11/10/17 00:31 [From VIBRAMYCIN] doxycycline monohydrate Allergy Intermediate RASH Verified 11/10/17 00:31 [From VIBRAMYCIN] duloxetine HCl Allergy Intermediate HIVES Verified 11/10/17 00:31 [From CYMBALTA] estrogens, conjugated Allergy Intermediate HIVES Verified 11/10/17 00:31 [From PREMARIN] gabapentin [From NEURONTIN] Allergy Intermediate HIVES Verified 11/10/17 00:31 hydrocodone [HYDROCODONE] Allergy Intermediate HIVES Verified 11/10/17 00:31 lactose [LACTOSE] Allergy Intermediate HIVES Verified 11/10/17 00:31 pentoxifylline [From TRENTAL] Allergy Intermediate HIVES Verified 11/10/17 00:31 pregabalin [From LYRICA] Allergy Intermediate HIVES Verified 11/10/17 00:31 promethazine HCl Allergy Intermediate HIVES Verified 11/10/17 00:31 [From PHENERGAN] sulfamethoxazole Allergy Intermediate HIVES Verified 11/10/17 00:31 [From SEPTRA] tramadol HCl [From ULTRAM] Allergy Intermediate HIVES Verified 11/10/17 00:31 trimethoprim [From SEPTRA] Allergy Intermediate HIVES Verified 11/10/17 00:31 venlafaxine HCl Allergy Intermediate HIVES Verified 11/10/17 00:31 [From EFFEXOR] Travel Screening - Travel/Exposure Within Last 30 Days Have you traveled within the last 30 days?: No - Travel Symptoms Symptom Screening: None Review of Systems Constitutional: Reports: Malaise. Denies: Chills, Fever, Night sweats Eyes: Denies: Eye discharge, Eye pain ENT: Denies: Congestion, Ear pain, Epistaxis Respiratory: Denies: Cough, Dyspnea Cardiovascular: Denies: Chest pain, Dyspnea on exertion Endocrine: Reports: Fatigue. Denies: Heat or cold intolerance Gastrointestinal: Denies: Abdominal pain, Nausea, Vomiting Genitourinary: Denies: Incontinence, Retention Musculoskeletal: Denies: Arthralgia, Back pain Skin: Denies: Bruising, Change in color Neurological: Reports: Confusion. Denies: Abnormal gait, Headache, Seizure Psychiatric: Denies: Anxiety Hematological/Lymphatic: Denies: Anemia, Blood Clots Past Medical History - SOCIAL HISTORY Smoking Status: Former smoker - RESPIRATORY Hx Respiratory Disorders: Yes Hx Asthma: Yes Hx Dyspnea: Yes Hx Pneumonia: Yes Hx Pulmonary Embolism: Yes (x3) Hx Sleep Apnea: No - CARDIOVASCULAR Hx Cardio Disorders: Yes Hx Abnormal EKG: Yes Hx Cardiac Cath: Yes Hx Chest Pain: Yes Hx CHF: Yes Hx Deep Vein Thrombosis: Yes Hx Edema: Yes Hx Heart Attack: Yes Hx Hypertension: Yes Hx Hypotension: No Hx Vascular Disease: No - NEURO Hx Neuro Disorders: Yes Hx Dizziness: Yes Hx Headaches: Yes Hx Neuropathy: Yes (BLE) Hx Parkinson's Disease: No Hx Seizures: No Hx Speech Problem: No Hx TIA: Yes (x2) - GI Hx GI Disorders: Yes Hx Abdominal Pain: Yes Hx Diverticulitis: Yes Hx GI Bleed: Yes Hx Irritable Bowel: Yes Hx Nausea/Vomiting: Yes Hx Obstructive Bowel: Yes Hx Rectal Bleeding: Yes - Hx Genitourinary Disorders: Yes Hx Bladder Problem: Yes (incontinence) Hx Kidney Stones: Yes - ENDOCRINE Hx Endocrine Disorders: Yes Hx Diabetes: Yes Hx Thyroid Disease: Yes - MUSCULOSKELETAL Hx Musculoskeletal Disorders: Yes Hx Arthritis: Yes Hx Fibromyalgia: Yes Comment:: restless leg syndrome - PSYCH Hx Psych Problems: Yes Hx Anxiety: No Hx Behavior Problems: No Hx Depression: No Hx Emotional Abuse: No Hx Sexual Abuse: No Hx Suicide Attempt: No - HEMATOLOGY/ONCOLOGY Hx Hematology/Oncology Disorders: Yes Hx Cancer: No Family Medical History Any Significant Family History?: Yes Hx Cancer: Mother Hx Heart Disease: Father, Mother Hx HTN: Father, Mother Physical Exam - General General Appearance: Alert, Oriented x3, Cooperative, Other (Mental status waxes and wanes on examination, but arouses to voice and answers questions.) - Head Head exam: Atraumatic, Normocephalic, Normal inspection Head exam detail: negative: Abrasion, Contusion, Lacy's sign, General tenderness, Hematoma, Laceration - Eye Eye exam: Normal appearance. negative: Conjunctival injection, Periorbital swelling, Periorbital tenderness, Scleral icterus - ENT Ear exam: negative: Auricular hematoma, Auricular trauma Nasal Exam: negative: Active bleeding, Discharge, Dried blood, Foreign body Mouth exam: negative: Drooling, Laceration, Muffled voice, Tongue elevation - Neck Neck exam: Normal inspection. negative: Meningismus, Tenderness - Respiratory Respiratory exam: Normal lung sounds bilaterally. negative: Rales, Respiratory distress, Rhonchi, Stridor - Cardiovascular Cardiovascular Exam: Regular rate, Normal rhythm, Normal heart sounds - GI/Abdominal GI/Abdominal exam: Soft. negative: Rebound, Rigid, Tenderness - Rectal Rectal exam: Deferred - exam: Deferred - Extremities Extremities exam: negative: Pedal edema, Tenderness - Back Back exam: Denies: CVA tenderness (R), CVA tenderness (L) - Neurological Neurological exam: Alert, Other (No gross deficits on examination). negative: Motor sensory deficit - Psychiatric Psychiatric exam: Normal affect, Normal mood - Skin Skin exam: Normal color. negative: Abrasion Type of lesion: negative: abrasion Course Vital Signs 11/09/17 22:31 Pulse Rate 74 Respiratory 14 Rate Blood Pressure 155/60 Pulse Ox 97 - Reevaluation(s) Reevaluation #1: 11/09/17 22:42 EKG: NSR 63 Normal axis, normal intervals ST depression I, II, AVL, V4-V6 Previous 09/17/17: Worsening ST depression I, IIV4-V6 compared with previous. Reevaluation #2: 11/09/17 23:12 Patient is back from CT imaging, no obvious intra-cranial process is visualized. Repeat Accu check ordered. Reevaluation #3: 11/09/17 23:20 Repeat accu check 54. Amp D50 ordered, will increase D5 to 150 ml/hr. Reevaluation #4: 11/09/17 23:32 Initial labs reviewed: CO2 17 AG 20 BNP 1056 Reevaluation #5: 11/09/17 23:40 CT Brain: No acute process 11/09/17 23:56 Patient is now sitting upright, alert, oriented, and conversational on examination. 11/10/17 00:00 Repeat accu check 147. 11/10/17 01:17 IV glucose has been discontinued. Discussed admission with the patient for recurrent hypoglycemia, patient refuses as she has a family reunion that she has to be at at 7:00 AM. Patient however does not want to leave AMA as she is concerned about recurrent hypoglycemia. Will continue to observe in AM with periodic checks until later this morning. 11/10/17 01:23 repeat Accu check 135. Will continue to monitor. 11/10/17 03:23 Repeat Accu check 179. 11/10/17 05:10 Repeat Accu check 201. Patient appears stable for discharge at this time. Medical Decision Making - Lab Data Result diagrams: 11/09/17 22:31 11/09/17 22:31 Disposition Disposition: Discharge Clinical Impression: Insulin reaction Qualifiers: Encounter type: initial encounter Qualified Code(s): T38.3X5A - Adverse effect of insulin and oral hypoglycemic [antidiabetic] drugs, initial encounter Disposition: Home, Self-Care Condition: (2) Stable Instructions: Hypoglycemia in a Person with Diabetes (ED) Additional Instructions: Return to ED if your symptoms worsen or if you have any concerns. Follow-up with your family doctor in 1-3 days as directed. Forms: Patient Portal Access Time of Disposition: 06:47 Quality - Quality Measures Quality Measures: N/A - Blood Pressure Screening Does Patient Have Any of the Following: Active Dx of HTN Blood Pressure Classification: Hypertensive Reading Systolic Measurement: 155 Diastolic Measurement: 60 Screening for High Blood Pressure: Patient Exclusion, Hx of HTN [G9744]
[2017-11-09 22:45] LABS: BASO % 0.2 % (0-6); EOS % 2.1 % (0-6); GRAN % 58.1 % (47-80); HEMOGLOBIN 11.4 gm/dl (11.6-16.0); LYMPH % 26.7 % (16-45); MEAN CELL VOLUME 93.8 fl (81-97); MEAN CORPUSCULAR HGB CONC 32.6 g/dl (32-36); MEAN PLATELET VOLUME 11.5 fl (7.4-10.4); MONO % 12.9 % (0-9); PLATELET COUNT 177 K/uL (130-400); RED BLOOD COUNT 3.73 M/uL (3.80-5.40); RED CELL DISTRIBUTION WIDTH 14.2 % (11.5-14.5); WHITE BLOOD COUNT W/O DIFF 4.8 K/uL (4.2-12.2)
[2017-11-09 22:47] LABS: MEAN CORPUSCULAR HEMOGLOBIN 30.5 pg (27-33)
[2017-11-09 22:58] LABS: BLOOD UREA NITROGEN 31 mg/dL (8-23)
[2017-11-09 22:59] LABS: CREATININE 1.1 mg/dL (0.5-0.9); EST GLOMERULAR FILTRATION RATE 51 mL/min; TOTAL PROTEIN 6.4 g/dL (6.6-8.7)
[2017-11-09 23:01] LABS: GLUCOSE,RANDOM 93 mg/dL (74-109)
[2017-11-09 23:04] LABS: ALB/GLOB RATIO 1.2 (1.1-1.8); ALBUMIN 3.5 g/dL (4.0-5.0); ALKALINE PHOSPHATASE 76 U/L (35-104); ALT/SGPT 11 U/L (<33); AST/SGOT 27 U/L (10.0-35.0)
[2017-11-09] MEDS ORDERED: DEXTROSE 50 % IVP 50 ML DISP.SYRIN IVP ONE (23:20)
[2017-11-09 23:41] LABS: URINE APPEARANCE CLEAR; URINE BILIRUBIN NEGATIVE (NEGATIVE); URINE BLOOD NEGATIVE (NEGATIVE); URINE COLOR YELLOW; URINE KETONE NEGATIVE (NEGATIVE); URINE LEUKOCYTE ESTERASE NEGATIVE (NEGATIVE); URINE NITRITE NEGATIVE (NEGATIVE); URINE PROTEIN NEGATIVE (NEGATIVE)
[2017-11-09] MEDS ORDERED: ACETAMINOPHEN 500 MG TABLET PO ONE (23:52)
[2017-11-09 23:54] LABS: ACETAMINOPHEN < 5.0 ug/mL (10.0-30.0); SALICYLATE < 0.3 mg/dL (2.8-20)
[2017-11-10 00:01] LABS: PROTHROMBIN TIME (PATIENT) 10.7 SECONDS (9.5-12.1)
[2017-11-10] MEDS ORDERED: BACLOFEN 10 MG TABLET PO SCH (00:15)
[2017-11-10] MEDS ORDERED: ROPINIROLE HCL 1 MG TABLET PO ONE (00:29)
[2017-11-10] MEDS ORDERED: BACLOFEN 10 MG TABLET PO ONE (00:32)
[2017-11-10] MEDS ORDERED: ROPINIROLE HCL 1 MG TABLET PO SCH (22:00)
--- NOTE | 2017-11-12 14:29 | RADIOLOGY REPORT ---
EXAM: HEAD CT HISTORY: CONFUSION, UNRESPONSIVE. TECHNIQUE: Axial CT scan of the head was performed without IV contrast. A preliminary report was provided by [facility]. Comparison: None. FINDINGS: No definite acute intracranial hemorrhage identified. No focal mass effect or midline shift apparent. Moderate generalized atrophy with chronic appearing deep white matter changes, nonspecific, but likely representing some chronic small vessel deep white matter ischemic disease. No definite acute infarct or intracranial mass lesion is seen. No depressed calvarial fracture is evident. Mild membrane thickening in the right maxillary antrum. IMPRESSION: 1. NO DEFINITE ACUTE INTRACRANIAL HEMORRHAGE OR FOCAL MASS EFFECT IDENTIFIED. 2. GENERALIZED ATROPHY WITH CHRONIC APPEARING DEEP WHITE MATTER CHANGES. JOB NUMBER: [id number] [facility]
== END 2017-11-10 07:08 | disposition home or self-care (01) ==
LOC: ER 22:26
DX: E11.649 Type 2 diabetes mellitus with hypoglycemia without coma (principal); T38.3X5A Adverse effect of insulin and oral hypoglycemic [antidiabetic] drugs, initial encounter; R41.82 Altered mental status, unspecified; R53.1 Weakness; I50.9 Heart failure, unspecified; I10 Essential (primary) hypertension; I25.2 Old myocardial infarction; Z79.4 Long term (current) use of insulin; Z79.84 Long term (current) use of oral hypoglycemic drugs; Z79.01 Long term (current) use of anticoagulants; Z87.891 Personal history of nicotine dependence
CPT/HCPCS: 36416; 70450; 80053; 80320; 80329; 81003; 82140; 82948; 83605; 83880; 84484; 85025; 85610; 93005; 93010; 96365; 96366; 96375; 99284

== ENCOUNTER 2017-12-12 08:50 | Day surgery (SDC) | payer MEDICARE, BC ==
[2017-12-12] MEDS ORDERED: LIDOCAINE 2% MDV (20MG/ML) 20ML VIAL IV ONE (08:51)
[2017-12-12] MEDS ORDERED: FENTANYL PF 100MCG/2ML VIAL IV ONE (08:51)
[2017-12-12] MEDS ORDERED: PROPOFOL 10 MG/ML VIAL IV ONE (08:51)
--- NOTE | 2017-12-13 12:40 | Operative Note ---
DATE OF SURGERY: 12/12/2017 OPERATION: ESOPHAGOGASTRODUODENOSCOPY with Dugan dilation. PREOPERATIVE DIAGNOSIS: Esophageal inflammation and dysphagia. POSTOPERATIVE DIAGNOSES: 1. Normal upper endoscopy. 2. Unremarkable dilation with 52-Croatian Dugan dilator. PROCEDURE: After informed consent was obtained from the patient, she was placed in the left lateral decubitus position in the endoscopy suite, sedated and monitored by the department of anesthesia. A well-lubricated [id number] gastroscope was placed in the posterior oropharynx and under direct visualization passed to the proximal esophagus. The endoscope was advanced through the proximal, mid, and distal esophagus. The GE junction and esophagus were unremarkable. The previously visualized linear ulcers have now resolved. The remainder of the esophagus appeared normal. The gastric body and the antrum were unremarkable. There was some retained acid and bile which was aspirated with the endoscope. The pylorus, duodenal bulb, and sweep were unremarkable. J-turn views of the proximal stomach were unrevealing. The endoscope was straightened and retracted from the patient with no new findings noted. At this point, a 52-Croatian Dugan dilator was passed through the level of the GE junction and removed with [id number] resistance being observed. There was no heme on the dilator. The patient was taken to the recovery room to be monitored. RECOMMENDATIONS: The patient should resume her medications and diet. At this point, I question whether she could even have an occult motility disorder which could be responsible for some of her symptoms. In any event, I do not feel that further intervention seems required at this time. As always, thank you for allowing me to participate in the healthcare of your patients. CC: MD CHAVO Rosenthal
== END 2017-12-12 10:35 | disposition home or self-care (01) ==
LOC: HOP 08:50
PROVIDERS: ATTEND Internal Medicine Gastroenterology
DX: K20.9 Esophagitis, unspecified (principal); R13.10 Dysphagia, unspecified; I10 Essential (primary) hypertension; E11.9 Type 2 diabetes mellitus without complications; Z79.4 Long term (current) use of insulin; E78.00 Pure hypercholesterolemia, unspecified; Z95.5 Presence of coronary angioplasty implant and graft; J45.909 Unspecified asthma, uncomplicated; G62.9 Polyneuropathy, unspecified; I25.10 Atherosclerotic heart disease of native coronary artery without angina pectoris; G25.81 Restless legs syndrome
CPT/HCPCS: 43235; 43450; 00731; J3010

== ENCOUNTER 2018-02-20 14:09 | Emergency (ER) | payer MEDICARE, BC ==
[2018-02-20] MEDS ORDERED: FUROSEMIDE IV 40MG/4ML VIAL IV ONE (14:12)
[2018-02-20] MEDS ORDERED: IPRATROPIUM/ALBUTEROL (0.5MG/3MG) NEB INH ONE (14:14)
--- NOTE | 2018-02-20 14:19 | Emergency Department Record ---
History of Present Illness - General Chief Complaint: Shortness of breath Stated Complaint: COUGH, LEG SWELLING Time Seen by Provider: 02/20/18 14:12 Source: Patient - History of Present Illness Initial Comments: The patient was sent her from our [facility] because of a 2 weeks history of gradually increasing shortness of breath, orthopnea, a 15 pound weight gain and increased ankle edema to her left ankle (her right ankle is always swollen) . She has a history of CHF, htn, COPD, asthma, and CAD, 5 stents (two in her kidneys), 2 TIA's, a PE years ago, and a DVT left leg. . She denies chest pain unless she is coughing hard. She denies fevers chills, nausea, vomiting, chest pain or pressure currently. - Related Data Home Medications Medication Instructions Recorded Confirmed Last Taken Acetaminophen [Tylenol 500Mg Tab] 500 mg PO QHS 02/20/18 02/20/18 Unknown Chlorthalidone 50 mg PO DAILY 02/20/18 02/20/18 Unknown Ethacrynic Acid [Edecrin] 100 mg PO QAM 02/20/18 02/20/18 02/20/18 Guanfacine HCl [Intuniv] 1 mg PO DAILY 02/20/18 02/20/18 Unknown Hyoscyamine Sulfate [Levsin-Sl] 0.125 mg SL ASDIR 02/20/18 02/20/18 Unknown Nebivolol HCl [Bystolic] 10 mg PO BID 02/20/18 02/20/18 02/19/18 Terazosin HCl 5 mg PO QHS 02/20/18 02/20/18 02/19/18 Allergies Allergy/AdvReac Type Severity Reaction Status Date / Time adenosine Allergy Intermediate HYPERSENSIT Verified 02/20/18 14:12 IVITY alprazolam [From XANAX] Allergy Intermediate RASH Verified 02/20/18 14:12 azithromycin [AZITHROMYCIN] Allergy Intermediate RASH Verified 02/20/18 14:12 cefaclor Allergy Intermediate RASH Verified 02/20/18 14:12 clonidine HCl [From CATAPRES] Allergy Intermediate RASH Verified 02/20/18 14:12 codeine [CODEINE] Allergy Intermediate RASH Verified 02/20/18 14:12 diclofenac sodium Allergy Intermediate RASH Verified 02/20/18 14:12 [From VOLTAREN] dipyridamole Allergy Intermediate RASH Verified 02/20/18 14:12 [From PERSANTINE] doxycycline calcium Allergy Intermediate RASH Verified 02/20/18 14:12 [From VIBRAMYCIN] doxycycline hyclate Allergy Intermediate RASH Verified 02/20/18 14:12 [From VIBRAMYCIN] doxycycline monohydrate Allergy Intermediate RASH Verified 02/20/18 14:12 [From VIBRAMYCIN] duloxetine HCl Allergy Intermediate HIVES Verified 02/20/18 14:12 [From CYMBALTA] estrogens, conjugated Allergy Intermediate HIVES Verified 02/20/18 14:12 [From PREMARIN] gabapentin [From NEURONTIN] Allergy Intermediate HIVES Verified 02/20/18 14:12 hydrocodone [HYDROCODONE] Allergy Intermediate HIVES Verified 02/20/18 14:12 lactose [LACTOSE] Allergy Intermediate HIVES Verified 02/20/18 14:12 pentoxifylline [From TRENTAL] Allergy Intermediate HIVES Verified 02/20/18 14:12 pregabalin [From LYRICA] Allergy Intermediate HIVES Verified 02/20/18 14:12 promethazine HCl Allergy Intermediate HIVES Verified 02/20/18 14:12 [From PHENERGAN] sulfamethoxazole Allergy Intermediate HIVES Verified 02/20/18 14:12 [From SEPTRA] tramadol HCl [From ULTRAM] Allergy Intermediate HIVES Verified 02/20/18 14:12 trimethoprim [From SEPTRA] Allergy Intermediate HIVES Verified 02/20/18 14:12 venlafaxine HCl Allergy Intermediate HIVES Verified 02/20/18 14:12 [From EFFEXOR] clindamycin AdvReac CHEST PAIN Verified 02/20/18 14:13 Review of Systems Reviewed: No additional complaints except as noted below Constitutional: Reports: As per HPI. Denies: Chills, Fever, Malaise, Night sweats, Weakness, Weight change Eyes: Reports: As per HPI. Denies: Eye discharge, Eye pain, Photophobia, Vision change ENT: Reports: As per HPI. Denies: Congestion, Dental pain, Ear pain, Epistaxis , Hearing loss, Throat pain Respiratory: Reports: As per HPI. Denies: Cough, Dyspnea, Hemoptysis, Stridor, Wheezes Cardiovascular: Reports: As per HPI. Denies: Arrhythmia, Chest pain, Dyspnea on exertion, Edema, Murmurs, Orthopnea, Palpitations, Paroxysmal nocturnal dyspnea, Rheumatic Fever, Syncope Endocrine: Reports: As per HPI. Denies: Fatigue, Heat or cold intolerance, Polydipsia, Polyuria Gastrointestinal: Reports: As per HPI. Denies: Abdominal pain, Constipation, Diarrhea, Hematemesis, Hematochezia, Melena, Nausea, Vomiting Genitourinary: Reports: As per HPI. Denies: Abnormal menses, Discharge, Dyspareunia, Dysuria, Frequency, Hematuria, Incontinence, Retention, Urgency Musculoskeletal: Reports: As per HPI. Denies: Arthralgia, Back pain, Gout, Joint swelling, Myalgia, Neck pain Skin: Reports: As per HPI. Denies: Bruising, Change in color, Change in hair/ nails, Lesions, Pruritus, Rash Neurological: Reports: As per HPI. Denies: Abnormal gait, Confusion, Headache, Numbness, Paresthesias, Seizure, Tingling, Tremors, Vertigo, Weakness Psychiatric: Reports: As per HPI. Denies: Anxiety, Auditory hallucinations, Depression, Homicidal thoughts, Suicidal thoughts, Visual hallucinations Hematological/Lymphatic: Reports: As per HPI. Denies: Anemia, Blood Clots, Easy bleeding, Easy bruising, Swollen glands Past Medical History - SOCIAL HISTORY Smoking Status: Former smoker - RESPIRATORY Hx Respiratory Disorders: Yes Hx Asthma: Yes Hx Dyspnea: Yes Hx Pneumonia: Yes Hx Pulmonary Embolism: Yes (x3) Hx Sleep Apnea: No - CARDIOVASCULAR Hx Abnormal EKG: Yes Hx Chest Pain: Yes Hx Edema: Yes - NEURO Hx CVA: Yes (x2) - GI Hx Diverticulitis: Yes Hx Irritable Bowel: Yes - Hx Genitourinary Disorders: Yes Hx Bladder Problem: Yes (incontinence) Hx Kidney Stones: Yes - ENDOCRINE Hx Endocrine Disorders: Yes Hx Diabetes: Yes Hx Thyroid Disease: Yes Comment:: 3 weeks ago had low blood sugar down to 16, was unresponsive taken to [facility] - MUSCULOSKELETAL Hx Musculoskeletal Disorders: Yes Hx Arthritis: Yes Hx Fibromyalgia: Yes Comment:: restless leg syndrome - PSYCH Hx Psych Problems: Yes Hx Anxiety: No Hx Behavior Problems: No Hx Depression: No Hx Emotional Abuse: No Hx Sexual Abuse: No Hx Suicide Attempt: No - HEMATOLOGY/ONCOLOGY Hx Cancer: No Family Medical History Hx Cancer: Mother Hx Heart Disease: Father, Mother Hx HTN: Father, Mother Physical Exam - General General Appearance: Alert, Oriented x3, Cooperative, Moderate distress (speaks full sentences breathlessly) - Head Head exam: Atraumatic, Normal inspection - Eye Eye exam: Normal appearance, PERRL, EOMI. negative: Nystagmus Pupils: Normal accommodation, Miosis - ENT ENT exam: Normal exam, Mucous membranes moist, Normal external ear exam, Normal orophraynx, TM's normal bilaterally Ear exam: Normal external inspection. negative: External canal tenderness Nasal Exam: Normal inspection. negative: Discharge, Sinus tenderness Mouth exam: Normal external inspection, Tongue normal Teeth exam: Normal inspection. negative: Dental caries Throat exam: Normal inspection. negative: Tonsillar erythema, Tonsillar exudate - Neck Neck exam: Normal inspection, Full ROM. negative: Lymphadenopathy, Meningismus , Tenderness - Respiratory Respiratory exam: Normal lung sounds bilaterally, Accessory muscle use, Decreased breath sounds, Prolonged expiratory, Wheezes (expiratory wheeze with moderate tightness). negative: Chest wall tenderness, Rales, Respiratory distress - Cardiovascular Cardiovascular Exam: Normal rhythm, Normal heart sounds, Bradycardia - GI/Abdominal GI/Abdominal exam: Soft, Normal bowel sounds. negative: Tenderness - Rectal Rectal exam: Deferred - exam: Deferred - Extremities Extremities exam: Normal inspection, Full ROM, Normal capillary refill, Pedal edema (bilateral: 2+pitting on left, right is more chronic). negative: Calf tenderness, Tenderness - Back Back exam: Reports: Normal inspection, Full ROM. Denies: Muscle spasm, Rash noted, Tenderness - Neurological Neurological exam: Alert, CN II-XII intact, Normal gait, Oriented X3, Reflexes normal. negative: Motor sensory deficit - Psychiatric Psychiatric exam: Normal affect, Normal mood - Skin Skin exam: Dry, Intact, Normal color, Warm Course - Reevaluation(s) Reevaluation #1: Slightly decreased tightness after Duoneb once. IV Lasix being given now with bedside commode. 02/20/18 15:00 Reevaluation #2: The patient was unable to tolerate dopplers to her legs due to discomfort with the pressure. They may be considered to order tomorrow if appropriate. She was given Lasix 40 mg IV and has urinated 1700 cc since then in response. Spoke with physician electronic gluing machine operator at [facility] suggest this patient be transferred due to the acuity of care needed. Awaiting the CTA report prior to calling for transfer. 02/20/18 17:32 Reevaluation #3: 02/20/18 18:40 Norvasc orered due to elevated blood pressure here 202/68. 02/20/18 18:41 Reevaluation #4: Discussed with Dr. Oden who accepts patient in transfer with a consult to Dr. Jeff, the patient's gun stock maker, per patient request. Awaiting bed number. 02/20/18 18:42 02/20/18 18:53 Medical Decision Making - Management Options MDM Management: Additional Work-up Planned (e.g. ADM/Transfer/OP Study) ( transfer to [facility] with Consult to Dr. Jeff her gun stock maker.) - Data Complexity MDM Data: Labs Ordered and/or Reviewed, X-Ray Ordered and/or Reviewed (CTA: limlited study due to extensive motion of patient: No central PE seen with limited visualization of peripheral vessels. CMG; CAD. Per radiologist.), EKG Ordered and/or Reviewed - Lab Data Result diagrams: 02/20/18 14:31 02/20/18 14:31 - EKG Data -: EKG Interpreted by Me (Sinus jonny with low voltage precordial leads and no acute changes.) EKG: No Acute Changes (Unchanged from prior of 02-11-18.) Disposition Disposition: Transfer Clinical Impression: Respiratory distress, Orthopnea, History of CHF (congestive heart failure), COPD exacerbation CHF exacerbation Qualifiers: Heart failure type: unspecified Qualified Code(s): I50.9 - Heart failure, unspecified Hypertension Qualifiers: Hypertension type: unspecified Qualified Code(s): I10 - Essential (primary) hypertension Disposition: Acute Care Hospital Transfer Decision to Admit: Admit from ER Decision to Admit Date: 02/20/18 Decision to Admit Time: 19:03 Transfer To: [facility] Reason For Transfer: Acuity of care, patient get her care there Accepting Physician: Dr. Oden Time Discussed w/Accepting Physician: 19:00 Condition: (2) Stable Forms: Patient Portal Access Quality - Quality Measures Quality Measures: N/A - Blood Pressure Screening Does Patient Have Any of the Following: No Blood Pressure Classification: Pre-Hypertensive BP Reading Systolic Measurement: 135 Diastolic Measurement: 67 Screening for High Blood Pressure: < Normal BP, F/U Not Required > [G8783]
[2018-02-20 14:38] LABS: BASO % 0.4 % (0-6); EOS % 2.8 % (0-6); GRAN % 65.9 % (47-80); HEMATOCRIT 33.9 % (35.0-47.0); HEMOGLOBIN 10.7 gm/dl (11.6-16.0); LYMPH % 19.9 % (16-45); MEAN CELL VOLUME 96.6 fl (81-97); MEAN CORPUSCULAR HGB CONC 31.6 g/dl (32-36); MEAN PLATELET VOLUME 11.8 fl (7.4-10.4); PLATELET COUNT 152 K/uL (130-400); RED BLOOD COUNT 3.51 M/uL (3.80-5.40); RED CELL DISTRIBUTION WIDTH 14.5 % (11.5-14.5); WHITE BLOOD COUNT W/O DIFF 5.4 K/uL (4.2-12.2)
[2018-02-20 14:39] LABS: MEAN CORPUSCULAR HEMOGLOBIN 30.4 pg (27-33)
[2018-02-20 14:49] LABS: BLOOD UREA NITROGEN 30 mg/dL (8-23); EST GLOMERULAR FILTRATION RATE 57 mL/min
[2018-02-20 14:50] LABS: TOTAL PROTEIN 6.7 g/dL (6.6-8.7)
[2018-02-20 14:52] LABS: GLUCOSE,RANDOM 144 mg/dL (74-109)
[2018-02-20 14:55] LABS: ALB/GLOB RATIO 1.7 (1.1-1.8); ALBUMIN 4.2 g/dL (4.0-5.0); ALKALINE PHOSPHATASE 90 U/L (35-104); ALT/SGPT 16 U/L (<33); AST/SGOT 20 U/L (10.0-35.0); INR 1.1; PARTIAL THROMBOPLASTIN TIME 27.4 SECONDS (24.5-39.1); PROTHROMBIN TIME (PATIENT) 10.7 SECONDS (9.5-12.1)
[2018-02-20 15:25] LABS: URINE APPEARANCE CLEAR; URINE BILIRUBIN NEGATIVE (NEGATIVE); URINE BLOOD TRACE-I (NEGATIVE); URINE COLOR YELLOW; URINE GLUCOSE (UA) NEGATIVE (NEGATIVE); URINE KETONE NEGATIVE (NEGATIVE); URINE LEUKOCYTE ESTERASE MODERATE (NEGATIVE); URINE NITRITE NEGATIVE (NEGATIVE); URINE PROTEIN TRACE (NEGATIVE); URINE UROBILINOGEN 0.2 E.U./dL (0.20 - 1.00)
[2018-02-20 15:35] LABS: URINE BACTERIA NONE SEEN; URINE EPITHELIAL CELLS 0 - 2 (FEW); URINE WBC 21 - 35 (0-2/hpf)
[2018-02-20] MEDS ORDERED: AMLODIPINE BESYLATE 5MG TAB PO ONE (17:43)
--- NOTE | 2018-02-23 09:22 | RADIOLOGY REPORT ---
EXAM: CHEST 1 VIEW HISTORY: SEVERE DIFFICULTY IN BREATHING. TECHNIQUE: AP upright portable. COMPARISON: Frontal chest, 06/02/17. FINDINGS: Cardiomegaly is again seen. Pulmonary venous hypertension with some progressive interstitial blurring in the interval probably representing some mixed interstitial and alveolar infiltrate. Findings suggest progressive CHF/ pulmonary edema although pneumonitis particularly on the right would be difficult to absolutely exclude. Follow-up films are suggested, preferably upright PA and lateral. No obvious pleural effusion or pneumothorax seen in this AP only study. IMPRESSION: 1. CARDIOMEGALY WITH ADDITIONAL FINDINGS SUGGESTING MILD CHF/PULMONARY EDEMA. 2. FOLLOW-UP FILMS SUGGESTED. JOB NUMBER: [id number] MTDD
--- NOTE | 2018-02-23 20:14 | CT ANGIOGRAM REPORT ---
EXAM: CT ANGIOGRAM CHEST CTA w contrast HISTORY: COUGH AND BILATERAL LOWER EXTREMITY SWELLING. COMPARISON: None. TECHNIQUE: CT angiogram of the chest after intravenous contrast with coronal and sagittal reformations, and MIP reformations created on a dependent workstation. FINDINGS: Four-chamber cardiac enlargement. Three-vessel coronary artery calcifications. Evaluation for pulmonary embolus is limited by extensive respiratory motion. No central or lobar filling defects. The peripheral arteries are obscured by the respiratory motion. No hilar or mediastinal adenopathy. The upper abdomen is poorly evaluated due to the extensive patient motion. There is a 7 cm hypodense lesion of the left kidney with density that is borderline fluid. Severe atherosclerotic disease in the upper abdominal vasculature. The lungs are suboptimally assessed due to extensive respiratory motion. No focal consolidation. No pleural effusion or pneumothorax. The bones are suboptimally assessed due to the respiratory motion. No destructive osseous lesion is identified within the thoracic spine. IMPRESSION: 1. EXTENSIVE RESPIRATORY MOTION LIMITS EVALUATION. NO MAIN OR LOBAR PULMONARY EMBOLUS. THE PERIPHERAL ARTERIES ARE OBSCURED BY RESPIRATORY MOTION. 2. CARDIOMEGALY WITH CORONARY ARTERY DISEASE. JOB NUMBER: [id number] [facility]
== END 2018-02-20 20:00 | disposition short-term general hospital (02) ==
LOC: ER 14:09
DX: J44.1 Chronic obstructive pulmonary disease with (acute) exacerbation (principal); R06.01 Orthopnea; M79.662 Pain in left lower leg; M79.661 Pain in right lower leg; I50.9 Heart failure, unspecified; I10 Essential (primary) hypertension; E11.9 Type 2 diabetes mellitus without complications; I25.2 Old myocardial infarction; I25.10 Atherosclerotic heart disease of native coronary artery without angina pectoris; Z95.5 Presence of coronary angioplasty implant and graft; Z79.4 Long term (current) use of insulin; Z86.718 Personal history of other venous thrombosis and embolism; Z87.891 Personal history of nicotine dependence
CPT/HCPCS: 99285 ×2; 96374; 83735; 85025; 85730; 85610; 80053; 81001; 84484; 85379; 83880; 71045; 71275; 94640; 93005; 93010; Q9967; J1940

== ENCOUNTER 2018-09-07 09:58 | Inpatient (IN) | payer MEDICARE, BC ==
--- NOTE | 2018-09-07 10:11 | Emergency Department Record ---
History of Present Illness - General Chief Complaint: Shortness of breath Stated Complaint: TERRENCE Time Seen by Provider: 09/07/18 10:03 Source: Patient Mode of Arrival: Ambulatory Limitations: No limitations - History of Present Illness Initial Comments: 78 yo female presents with shortness of breath with cough for the last three days. The cough is productive at times with discolored sputum. She is short of breath with any exertion. She reports a history of CHF in the past. She has had some intermittent chest pain as well mostly with coughing. Dr Jeff is her board hammer operator and Dr Barron is her PCP. The patient was seen at a [facility] in [place] and referred to the ED for additional work up. She was given solumedrol and a breathing treatment at the [facility]. She has a history of CHF, CAD, CORIE, HTN, DM, Elevated lipids, Hypothyroid, PE with a filter, TIA, RLS. There have been some grandchildren with cough around her at times. Her legs are at the baseline regarding chronic edema. She is with in a pound of her desired weight as well. MD Complaint: Chest pain, Shortness of breath -: Days(s) (3) Severity: Moderate Quality: Other Consistency: Constant Improves With: Rest Worsens With: Exertion, Movement Known History Of: Congestive heart failure Context: Recent URI Associated Symptoms: Chest pain, Cough Treatments Prior to Arrival: Other - Related Data Home Medications Medication Instructions Recorded Confirmed Last Taken Albuterol Sulfate 0.083% [Neb] 3 ml NEB .EVERY 4-6 HOURS PRN 09/07/18 09/07/18 Unknown [Albuterol Sulfate] Amlodipine Besylate [Norvasc] 10 mg PO DAILY 09/07/18 09/07/18 09/07/18 Guanfacine HCl [Guanfacine HCl ER] 1 mg PO DAILY 09/07/18 09/07/18 Unknown Isosorbibe Dinit/Hydralazine 1 each PO TID 09/07/18 09/07/18 09/07/18 [Bidil Tablet] Losartan Potassium 50 mg PO BID 09/07/18 09/07/18 09/07/18 Minoxidil 2.5 mg PO BID 09/07/18 09/07/18 09/07/18 Morphine Sulfate [Morphine Sulfate 15 mg PO BID 09/07/18 09/07/18 Unknown ER] Spironolactone 25 mg PO BID 09/07/18 09/07/18 09/07/18 Allergies Allergy/AdvReac Type Severity Reaction Status Date / Time adenosine AdvReac Intermediate stomach Verified 09/07/18 10:35 pains clonidine HCl [From CATAPRES] AdvReac Intermediate stomach Verified 09/07/18 10: 35 pains dipyridamole AdvReac Intermediate stomach Verified 09/07/18 10:35 [From PERSANTINE] pains pregabalin [From LYRICA] AdvReac Intermediate stomach Verified 09/07/18 10:35 pains cefaclor [From Ceclor] AdvReac stomach Verified 09/07/18 10:35 pains clindamycin AdvReac CHEST PAIN Verified 09/07/18 10:03 vilazodone [From Viibryd] AdvReac "makes me Verified 09/07/18 10:36 antsy" Review of Systems Constitutional: Denies: Chills, Fever, Malaise, Weakness Eyes: Denies: Eye discharge ENT: Reports: Congestion Respiratory: Reports: Cough, Dyspnea Cardiovascular: Reports: Chest pain. Denies: Edema, Palpitations, Syncope Endocrine: Reports: Fatigue Gastrointestinal: Denies: Abdominal pain, Diarrhea, Nausea, Vomiting Genitourinary: Denies: Dysuria Musculoskeletal: Denies: Arthralgia, Back pain, Joint swelling, Myalgia Skin: Denies: Bruising, Change in color, Rash Neurological: Denies: Headache Psychiatric: Denies: Anxiety Hematological/Lymphatic: Denies: Blood Clots, Easy bleeding, Easy bruising Past Medical History - SOCIAL HISTORY Smoking Status: Former smoker - RESPIRATORY Hx Respiratory Disorders: Yes Hx Asthma: Yes Hx Dyspnea: Yes Hx Pneumonia: Yes Hx Pulmonary Embolism: Yes (x3) Hx Sleep Apnea: No - CARDIOVASCULAR Hx Abnormal EKG: Yes Hx Chest Pain: Yes Hx Edema: Yes - NEURO Hx CVA: Yes (x2) - GI Hx Diverticulitis: Yes Hx Irritable Bowel: Yes - Hx Genitourinary Disorders: Yes Hx Bladder Problem: Yes (incontinence) Hx Kidney Stones: Yes - ENDOCRINE Hx Endocrine Disorders: Yes Hx Diabetes: Yes Hx Thyroid Disease: Yes Comment:: 3 weeks ago had low blood sugar down to 16, was unresponsive taken to [facility] - MUSCULOSKELETAL Hx Musculoskeletal Disorders: Yes Hx Arthritis: Yes Hx Fibromyalgia: Yes Comment:: restless leg syndrome - PSYCH Hx Psych Problems: Yes Hx Anxiety: No Hx Behavior Problems: No Hx Depression: No Hx Emotional Abuse: No Hx Sexual Abuse: No Hx Suicide Attempt: No - HEMATOLOGY/ONCOLOGY Hx Cancer: No Family Medical History Hx Cancer: Mother Hx Heart Disease: Father, Mother Hx HTN: Father, Mother Physical Exam - General General Appearance: Alert, Oriented x3, Cooperative, No acute distress Limitations: No limitations - Head Head exam: Atraumatic, Normal inspection - Eye Eye exam: Normal appearance, PERRL. negative: Conjunctival injection, Scleral icterus - ENT ENT exam: Normal exam, Mucous membranes moist Ear exam: Normal external inspection Nasal Exam: Normal inspection Mouth exam: Normal external inspection - Neck Neck exam: Normal inspection, Full ROM. negative: Tenderness - Respiratory Respiratory exam: Decreased breath sounds, Prolonged expiratory, Rhonchi, Wheezes. negative: Normal lung sounds bilaterally - Cardiovascular Cardiovascular Exam: Regular rate, Normal rhythm, Normal heart sounds - GI/Abdominal GI/Abdominal exam: Soft. negative: Tenderness - Rectal Rectal exam: Deferred - exam: Deferred - Extremities Extremities exam: Normal inspection. negative: Tenderness - Back Back exam: Denies: CVA tenderness (R), CVA tenderness (L) - Neurological Neurological exam: Alert, Oriented X3 - Psychiatric Psychiatric exam: Normal affect, Normal mood. negative: Agitated, Anxious - Skin Skin exam: Dry, Intact, Normal color, Warm Course - Reevaluation(s) Reevaluation #1: Vitals reviewed. Afebrile. 99% EMR reviewed from prior H and P EKG #1: 10:08 Rate: 88 Rhythm: sinus with PVC's [place]inklow: L Intervals: Normal ST segments: NS ST changes some artifact due to shaking Prior: 03/18/18 Normal sinus. 09/07/18 10:17 09/07/18 10:27 Last [facility] admission was 05/2017 She was transferred 02/2018 ECHO 02/12/18 EF 55-60%, Stage 3 diastolic dysfunction, mild PA pressure 46mm, moderate MR 09/07/18 10:49 The labs were reviewed. The CBC demonstrates a chronic, stable anemia with Hgb of 11.4 The CMP demonstrated normal renal and hepatic labs The Troponin is normal at 0.01 The Pro-BNP is elevated at 2230 09/07/18 11:04 Influenza are negative 09/07/18 11:10 The CXR demonstrates cardiomegaly, mild PVC, bi basilar infiltrates suggesting early developing CHF 09/07/18 11:26 The patient will be admitted to [facility] given the elevated BNP with early CHF on the CXR. She will be given Bumex IVP, ECHO and Cardiology Consult ordered for tomorrow. The case was discussed with Sophia Garrett SUPERVISOR COMPOUNDING [employer] FINISHING for admission. Medical Decision Making - Lab Data Result diagrams: 09/07/18 10:20 09/07/18 10:20 Disposition Disposition: Admit Clinical Impression: CHF (congestive heart failure), Cough Disposition: Still a Patient at [facility] Decision to Admit: Admit from ER Decision to Admit Date: 09/07/18 Decision to Admit Time: 11:15 Condition: (2) Stable Forms: Patient Portal Access Time of Disposition: 11:11 Quality - Quality Measures Quality Measures: N/A - Blood Pressure Screening Does Patient Have Any of the Following: Active Dx of HTN Blood Pressure Classification: Pre-Hypertensive BP Reading Systolic Measurement: 199 Diastolic Measurement: 80 Screening for High Blood Pressure: Patient Exclusion, Hx of HTN [G9744]
[2018-09-07] MEDS ORDERED: IPRATROPIUM/ALBUTEROL (0.5MG/3MG) NEB INH ONE (10:14)
[2018-09-07 10:28] LABS: BASO % 0.1 % (0-6); EOS % 0.7 % (0-6); GRAN % 79.4 % (47-80); HEMATOCRIT 34.9 % (35.0-47.0); HEMOGLOBIN 11.4 gm/dl (11.6-16.0); LYMPH % 10.6 % (16-45); MEAN CELL VOLUME 90.4 fl (81-97); MEAN CORPUSCULAR HEMOGLOBIN 29.5 pg (27-33); MEAN CORPUSCULAR HGB CONC 32.7 g/dl (32-36); MEAN PLATELET VOLUME 10.7 fl (7.4-10.4); MONO % 9.2 % (0-9); PLATELET COUNT 199 K/uL (130-400); RED BLOOD COUNT 3.86 M/uL (3.80-5.40); RED CELL DISTRIBUTION WIDTH 14.4 % (11.5-14.5)
[2018-09-07 10:35] LABS: PARTIAL THROMBOPLASTIN TIME 29.7 SECONDS (24.5-39.1)
[2018-09-07 10:38] LABS: BLOOD UREA NITROGEN 17 mg/dL (8-23); CREATININE 0.9 mg/dL (0.5-0.9); EST GLOMERULAR FILTRATION RATE > 60 mL/min; TOTAL PROTEIN 6.7 g/dL (6.6-8.7)
[2018-09-07 10:40] LABS: GLUCOSE,RANDOM 228 mg/dL (74-109)
[2018-09-07 10:42] LABS: INFLUENZA A NEGATIVE (NEGATIVE); INFLUENZA B NEGATIVE (NEGATIVE)
[2018-09-07 10:46] LABS: ALB/GLOB RATIO 1.3 (1.1-1.8); ALBUMIN 3.8 g/dL (4.0-5.0); ALKALINE PHOSPHATASE 101 U/L (35-104); ALT/SGPT 8 U/L (<33); AST/SGOT 11 U/L (10.0-35.0)
[2018-09-07] MEDS ORDERED: BUMETANIDE IV 0.25 MG/ML VIAL IVP ONE (11:11)
[2018-09-07] MEDS ORDERED: PNEUM 13-VAL/PF 0.5 ML IM ONE (12:58)
[2018-09-07] MEDS: BUMETANIDE IV 0.25 MG/ML VIAL IVP SCH (17:45)
[2018-09-07] MEDS: HYDRALAZINE PO SCH ×2 (17:47→21:44)
[2018-09-07] MEDS: [UNRECOGNIZED DRUG - OTHER] PO SCH ×2 (17:47→21:44)
[2018-09-07] MEDS: IPRATROPIUM/ALBUTEROL (0.5MG/3MG) NEB INH PRN (21:05)
[2018-09-07] MEDS: ACETAMINOPHEN 500 MG TABLET PO SCH (21:21)
[2018-09-07] MEDS: ASPIRIN 81 MG TABEC PO SCH (21:43)
[2018-09-07] MEDS: MORPHINE SULFATE 15 MG TABLET.ER PO SCH (21:43)
[2018-09-07] MEDS: SPIRONOLACTONE 25 MG TAB PO SCH (21:43)
[2018-09-07] MEDS: MINOXIDIL 2.5 MG PO SCH (21:45)
[2018-09-07] MEDS: ROPINIROLE HCL 1 MG TABLET PO SCH (21:45)
[2018-09-07] MEDS: MONTELUKAST SODIUM 10MG TABLET PO SCH (21:46)
[2018-09-07] MEDS: BENZONATATE 100 MG CAPSULE PO PRN (21:47)
[2018-09-07] MEDS: BACLOFEN 10 MG TABLET PO PRN (21:49)
[2018-09-07] MEDS: LEVEMIR FLEXTOUCH 100 UNIT/ML INSULIN PEN SQ SCH (22:19)
[2018-09-08] MEDS: IPRATROPIUM/ALBUTEROL (0.5MG/3MG) NEB INH PRN (05:43)
[2018-09-08] MEDS: ACETAMINOPHEN 500 MG TABLET PO PRN (06:31)
[2018-09-08] MEDS: MORPHINE SULFATE 15 MG TABLET.ER PO SCH ×3 (08:28→22:17)
--- NOTE | 2018-09-08 08:48 | RADIOLOGY REPORT ---
EXAM: PORTABLE CHEST HISTORY: COUGH AND SHORTNESS OF BREATH. PREVIOUS HISTORY OF CHF AND ASTHMA. TECHNIQUE: A single portable AP upright view of the chest was performed. Comparison: 02/20/18. FINDINGS: The heart is mildly enlarged. There is calcification of the aorta. There is mild prominence of the pulmonary vasculature. Mild interstitial infiltrates are present at the lung bases. This pattern suggests mild CHF. There are no visible effusions. There is no pneumothorax. Degenerative changes are present within both shoulders. IMPRESSION: CARDIOMEGALY WITH MINOR VASCULAR CONGESTION AND BIBASILAR INTERSTITIAL INFILTRATES SUGGESTING DEVELOPING CHF. JOB NUMBER: [id number] [facility]
[2018-09-08] MEDS ORDERED: ALBUTEROL SULFATE (0.083%) 2.5 MG/3 ML NEB INH PRN (09:39)
--- NOTE | 2018-09-08 09:52 | History & Physical ---
History of Present Illness - Date of Service Date of Service for History & Physical: 09/08/18 - History of Present Illness Admitting Diagnosis: CHF History of Present Illness: Greri Jim is a 78 y/o presenting to ED from another urgent care for 3 day history of shortness of breath worse with exertion and productive cough with discolored sputum. She was given Solumedrol 125mg and a breathing treatment at the urgent care with no improvement. There has been recent exposure to acute respiratory illness by family members. Past medical history includes CHF, CAD, HTN, DM, dyslipidemia, hypothyroidism, PE s/p IVC filter, TIA, RLS. While in ED she was in respiratory distress, RR 32 with RA SPO2 99%. CBC normal , sodium 132, potassium 4.9, proBNP 2230, influenza screen negative. CXR- cardiomegaly, minor vascular congestion, bibasilar interstitial infiltrates consistent with CHF. EKG NSR with multiple PVC and non-specific T-wave changes. She was admitted for management of CHF exacerbation, IV diuresis, echocardiogram and cardiology consult 09/08/18: sitting in the chair comfortably, in no distress. Reports her breathing has improved since admit although is still a bit short of breath with activity. Has been afebrile through the night. Denies any complaints PCP: Dr Barron Cardiology: Dr Jeff Travel Screening - Travel/Exposure Within Last 30 Days Have you traveled within the last 30 days?: No - Travel/Exposure Within Last Year Have you traveled outside the [place] in the last year?: No - Additonal Travel Details Have you been exposed to anyone with a communicable illness?: No - Travel Symptoms Symptom Screening: None Review of Systems Constitutional: Denies: Chills, Fever, Malaise, Weakness Eyes: Denies: Eye discharge ENT: Denies: Congestion Respiratory: Denies: Cough, Dyspnea Cardiovascular: Denies: Chest pain, Edema, Palpitations, Syncope Endocrine: Reports: Fatigue Gastrointestinal: Denies: Abdominal pain, Diarrhea, Nausea, Vomiting Genitourinary: Denies: Dysuria Musculoskeletal: Denies: Arthralgia, Back pain, Joint swelling, Myalgia Skin: Denies: Bruising, Change in color, Rash Neurological: Denies: Headache Psychiatric: Denies: Anxiety Hematological/Lymphatic: Denies: Blood Clots, Easy bleeding, Easy bruising Past Medical History - SOCIAL HISTORY Smoking Status: Former smoker Alcohol Use: None Drug Use: None - RESPIRATORY Hx Respiratory Disorders: Yes Hx Asthma: Yes Hx Dyspnea: Yes Hx Pneumonia: Yes Hx Pulmonary Embolism: Yes (x3) Hx Sleep Apnea: No - CARDIOVASCULAR Hx Cardio Disorders: Yes Hx Abnormal EKG: Yes Hx Chest Pain: Yes Hx Edema: Yes - NEURO Hx Neuro Disorders: Yes Hx CVA: Yes (x2) - GI Hx GI Disorders: Yes Hx Diverticulitis: Yes Hx Irritable Bowel: Yes - Hx Genitourinary Disorders: Yes Hx Bladder Problem: Yes (incontinence) Hx Kidney Stones: Yes - ENDOCRINE Hx Endocrine Disorders: Yes Hx Diabetes: Yes Hx Thyroid Disease: Yes Comment:: 3 weeks ago had low blood sugar down to 16, was unresponsive taken to [facility] - MUSCULOSKELETAL Hx Musculoskeletal Disorders: Yes Hx Arthritis: Yes Hx Fibromyalgia: Yes Comment:: restless leg syndrome - PSYCH Hx Psych Problems: Yes Hx Anxiety: No Hx Behavior Problems: No Hx Depression: No Hx Emotional Abuse: No Hx Sexual Abuse: No Hx Suicide Attempt: No - HEMATOLOGY/ONCOLOGY Hx Hematology/Oncology Disorders: Yes Hx Cancer: No Family Medical History Any Significant Family History?: Yes Hx Cancer: Mother Hx Heart Disease: Father, Mother Hx HTN: Father, Mother Hx Stroke: Father, Mother H&P Meds/Allergies - Allergies Allergies: Allergies Allergy/AdvReac Type Severity Reaction Status Date / Time adenosine AdvReac Intermediate stomach Verified 09/07/18 10:35 pains clonidine HCl [From CATAPRES] AdvReac Intermediate stomach Verified 09/07/18 10: 35 pains dipyridamole AdvReac Intermediate stomach Verified 09/07/18 10:35 [From PERSANTINE] pains pregabalin [From LYRICA] AdvReac Intermediate stomach Verified 09/07/18 10:35 pains cefaclor [From Ceclor] AdvReac stomach Verified 09/07/18 10:35 pains clindamycin AdvReac CHEST PAIN Verified 09/07/18 10:03 vilazodone [From Viibryd] AdvReac "makes me Verified 09/07/18 10:36 antsy" - Home Medications Home Medications Medication Instructions Recorded Confirmed Last Taken Albuterol Sulfate 0.083% [Neb] 3 ml NEB .EVERY 4-6 HOURS PRN 09/07/18 09/07/18 Unknown [Albuterol Sulfate] Amlodipine Besylate [Norvasc] 10 mg PO DAILY 09/07/18 09/07/18 09/07/18 Guanfacine HCl [Guanfacine HCl ER] 1 mg PO DAILY 09/07/18 09/07/18 Unknown Isosorbibe Dinit/Hydralazine 1 each PO TID 09/07/18 09/07/18 09/07/18 [Bidil Tablet] Losartan Potassium 50 mg PO BID 09/07/18 09/07/18 09/07/18 Minoxidil 2.5 mg PO BID 09/07/18 09/07/18 09/07/18 Morphine Sulfate [Morphine Sulfate 15 mg PO BID 09/07/18 09/07/18 Unknown ER] Spironolactone 25 mg PO BID 09/07/18 09/07/18 09/07/18 - Active Medications Active Medications: Current Medications Acetaminophen (Tylenol 500mg Tab) 1,000 mg PO QHS [facility] Last Admin: 09/07/18 21:21 Dose: 1,000 mg Acetaminophen (Tylenol 500mg Tab) 1,000 mg PO Q6H PRN PRN Reason: PAIN - MILD TO MODERATE (1-7) Last Admin: 09/08/18 06:31 Dose: 1,000 mg Albuterol Sulfate (Albuterol Sulfate) 2.5 mg INH RESP.Q2H PRN PRN Reason: DIFFICULTY IN BREATHING Albuterol/Ipratropium (Duoneb) 3 ml INH RESP.Q4H.WA PRN PRN Reason: WHEEZING Last Admin: 09/08/18 05:43 Dose: 3 ml Amlodipine Besylate (Norvasc) 10 mg PO DAILY [facility] Aspirin (Ecotrin (Ec)) 81 mg PO QHS [facility] Last Admin: 09/07/18 21:43 Dose: 81 mg Atorvastatin Calcium (Lipitor) 40 mg PO DAILY [facility] Baclofen (Lioresal) 10 mg PO TID PRN PRN Reason: MUSCLE SPASMS Last Admin: 09/07/18 21:49 Dose: 10 mg Benzonatate (Tessalon) 100 mg PO TID PRN PRN Reason: COUGH Last Admin: 09/07/18 21:47 Dose: 100 mg Bumetanide (Bumex) 1 mg IVP BIDDIUR [facility] Last Admin: 04/28/19 17:45 Dose: 1 mg Clopidogrel Bisulfate (Plavix) 75 mg PO DAILY [facility] Insulin Aspart (Novolog Flexpen) 1 unit SQ QIDINS [facility]; Protocol Insulin Detemir (Levemir Flextouch) 40 unit SQ QHS [facility] Last Admin: 09/07/18 22:19 Dose: 40 unit Levothyroxine Sodium (Synthroid) 100 mcg PO DAILYTHY [facility] Levothyroxine Sodium (Synthroid) 75 mcg PO DAILYTHY [facility] Montelukast Sodium (Singulair) 10 mg PO QHS [facility] Last Admin: 09/07/18 21:46 Dose: 10 mg Morphine Sulfate (Ms Contin) 15 mg PO BID [facility] Last Admin: 09/08/18 08:28 Dose: 15 mg Isosorbibe Dinit/Hydralazine [Bidil Tablet] 1 each PO TID [facility] Last Admin: 09/07/18 21:44 Dose: 1 each Minoxidil [Minoxidil (] 2.5 Mg) 1 each PO BID [facility] Last Admin: 09/07/18 21:45 Dose: 1 each Ropinirole HCl (Requip) 2 mg PO BID [facility] Last Admin: 09/07/18 21:45 Dose: 2 mg Spironolactone (Aldactone) 25 mg PO BID [facility] Last Admin: 09/07/18 21:43 Dose: 25 mg Physical Exam - Vital Signs Vital Signs: Vital Signs - Last 24 Hrs Temp Pulse Pulse Pulse Resp BP BP 09/08/18 09:00 83 22 09/08/18 08:00 98.1 F 80 16 155/41 09/08/18 06:25 87 26 H 09/08/18 05:43 75 20 09/08/18 05:30 98.0 F 62 20 09/08/18 00:00 98.0 F 69 18 09/07/18 21:23 09/07/18 21:05 75 32 H 09/07/18 21:00 68 75 32 H 09/07/18 20:00 98.4 F 75 24 09/07/18 19:00 09/07/18 16:00 98.2 F 70 16 127/79 09/07/18 12:30 98.0 F 18 177/49 09/07/18 11:19 72 32 H 174/45 09/07/18 10:23 70 24 09/07/18 10:07 98.1 F 78 24 199/80 BP Pulse Ox 09/08/18 09:00 09/08/18 08:00 93 L 09/08/18 06:25 200/61 99 09/08/18 05:43 97 09/08/18 05:30 155/41 97 09/08/18 00:00 119/81 98 09/07/18 21:23 98 09/07/18 21:05 09/07/18 21:00 09/07/18 20:00 207/61 98 09/07/18 19:00 224/62 09/07/18 16:00 97 09/07/18 12:30 95 09/07/18 11:19 97 09/07/18 10:23 98 09/07/18 10:07 99 - General General Appearance: Alert, Oriented x3, Cooperative, No acute distress Limitations: No limitations - Head Head exam: Atraumatic, Normal inspection - Eye Eye exam: Normal appearance, PERRL. negative: Conjunctival injection, Scleral icterus - ENT ENT exam: Normal exam, Mucous membranes moist Ear exam: Normal external inspection Nasal Exam: Normal inspection Mouth exam: Normal external inspection - Neck Neck exam: Normal inspection, Full ROM. negative: Tenderness - Respiratory Respiratory exam: Decreased breath sounds. negative: Normal lung sounds bilaterally, Prolonged expiratory, Rhonchi, Wheezes - Cardiovascular Cardiovascular Exam: Regular rate, Normal rhythm, Normal heart sounds Peripheral Pulses: 2+: Dorsalis Pedis (R), Dorsalis Pedis (L) - GI/Abdominal GI/Abdominal exam: Soft. negative: Tenderness - Rectal Rectal exam: Deferred - exam: Deferred - Extremities Extremities exam: Normal inspection. negative: Tenderness - Back Back exam: Denies: CVA tenderness (R), CVA tenderness (L) - Neurological Neurological exam: Alert, Oriented X3 - Psychiatric Psychiatric exam: Normal affect, Normal mood. negative: Agitated, Anxious - Skin Skin exam: Dry, Intact, Normal color, Warm Results - Labs Result Diagrams: 09/07/18 10:20 09/07/18 10:20 Labs Last 24 Hours: Laboratory Results - last 24 hr 09/07/18 09/07/18 09/07/18 10:20 10:20 10:20 WBC 10.0 RBC 3.86 Hgb 11.4 L Hct 34.9 L MCV 90.4 MCH 29.5 MCHC 32.7 RDW 14.4 Plt Count 199 MPV 10.7 H Gran % 79.4 Lymphocytes % 10.6 L Monocytes % 9.2 H Eosinophils % 0.7 Basophils % 0.1 PT 10.0 INR 1.0 APTT 29.7 D-Dimer Sodium 132 L Potassium 4.9 H Chloride 99 Carbon Dioxide 22.0 Anion Gap 11.0 BUN 17 Creatinine 0.9 Estimated GFR > 60 POC Glucose Random Glucose 228 H Calcium 8.9 Magnesium Total Bilirubin 0.90 AST 11 ALT 8 Alkaline Phosphatase 101 Troponin T < 0.010 NT-Pro-B Natriuret Pep 2230.00 H Total Protein 6.7 Albumin 3.8 L Globulin 2.9 Albumin/Globulin Ratio 1.3 Influenza Type A Ag Influenza Type B Ag 09/07/18 09/07/18 09/07/18 10:20 10:20 18:30 WBC RBC Hgb Hct MCV MCH MCHC RDW Plt Count MPV Gran % Lymphocytes % Monocytes % Eosinophils % Basophils % PT INR APTT D-Dimer Sodium Potassium Chloride Carbon Dioxide Anion Gap BUN Creatinine Estimated GFR POC Glucose Random Glucose Calcium Magnesium 1.7 Total Bilirubin AST ALT Alkaline Phosphatase Troponin T < 0.010 NT-Pro-B Natriuret Pep Total Protein Albumin Globulin Albumin/Globulin Ratio Influenza Type A Ag Negative Influenza Type B Ag Negative 09/07/18 09/08/18 09/08/18 22:00 00:00 08:00 WBC RBC Hgb Hct MCV MCH MCHC RDW Plt Count MPV Gran % Lymphocytes % Monocytes % Eosinophils % Basophils % PT INR APTT D-Dimer Sodium Potassium Chloride Carbon Dioxide Anion Gap BUN Creatinine Estimated GFR POC Glucose 341 H 342 H Random Glucose Calcium Magnesium Total Bilirubin AST ALT Alkaline Phosphatase Troponin T < 0.010 NT-Pro-B Natriuret Pep Total Protein Albumin Globulin Albumin/Globulin Ratio Influenza Type A Ag Influenza Type B Ag 09/08/18 09:36 WBC RBC Hgb Hct MCV MCH MCHC RDW Plt Count MPV Gran % Lymphocytes % Monocytes % Eosinophils % Basophils % PT INR APTT D-Dimer Cancelled Sodium Potassium Chloride Carbon Dioxide Anion Gap BUN Creatinine Estimated GFR POC Glucose Random Glucose Calcium Magnesium Total Bilirubin AST ALT Alkaline Phosphatase Troponin T NT-Pro-B Natriuret Pep Total Protein Albumin Globulin Albumin/Globulin Ratio Influenza Type A Ag Influenza Type B Ag VTE H&P Assessment - Risk for VTE Risk for VTE: Yes Risk Level: Moderate Risk Assessment Date: 09/08/18 Risk Assessment Time: 09:52 VTE Orders Placed or Will Be Placed: Yes Plan - Inpatient Certification Inpatient Certification: Admit to inpatient care: Based on my medical assessment, after consideration of patient's risk factors (age, co-morbidities and patient presenting symptoms and acuity), I expect that this patient will remain in the hospital greater than or equal to two midnights and that the services needed warrant inpatient care because: Patient Risk Factors: [] Estimated length of stay: [] The patient may reasonably be expected to be discharged or transferred to a hospital within 96 hours after admission to [facility]. Services needed: [] Post hospital care (if known): [] I certify that my determination is in accordance with my understanding of Medicare requirements for reasonable and necessary inpatient services. - Detailed Diagnosis and Plan (1) CHF (congestive heart failure) Current Visit: Yes Status: Acute Base Code: I50.9 - HEART FAILURE, UNSPECIFIED Comment: 09/08/18 - No acute infectious process appreciated on ER lab results - ProBNP 2230 - Troponin x3 <0.010 - Slightly hypertensive - 2L fluids restriction - Daily weights - Spironolactone - CXR- cardiomegaly, minor vascular congestion, bibasilar interstitial infiltrates consistent with CHF - Previous echo 02/12/18- EF 55-60%, stage 3 diastolic dysfunction, pulmonary artery pressure 46mmHg, mild aortic regugitation, moderate mitral regurgitation , lefrt atrium moderatly dilated - Echo and cardiology consult today - Bumex 1mg IVP - Tele (2) Diabetes Current Visit: Yes Status: Acute Qualifiers: Diabetes mellitus type: type 2 Diabetes mellitus longterm insulin use: with longterm use Diabetes mellitus complication status: without complication Qualified Code(s): E11.9 - Type 2 diabetes mellitus without complications; Z79.4 - superintendent container terminal (current) use of insulin Base Code: E11.9 - TYPE 2 DIABETES MELLITUS WITHOUT COMPLICATIONS Comment: - Continue home Levemir 40units daily - Accu checks AC/HS with sliding scale (3) CAD (coronary artery disease) Current Visit: Yes Status: Acute Base Code: I25.10 - ATHSCL HEART DISEASE OF [place] CORONARY ARTERY W/O ANG PCTRS Comment: 09/08/18 - Amlodipine 10mg QD - Atorvostatin 40mg QD - Plavix 75mg QD (4) DVT prophylaxis Current Visit: No Status: Acute Base Code: [id number] - Comment: 09/08/18 - Patient is currently on Plavix daily and has filter placed. -will encourage frequent ambulation -will add SCD's while in bed (5) Full code status Current Visit: No Status: Acute Base Code: Z78.9 - OTHER SPECIFIED HEALTH STATUS Comment: 09/08/18
[2018-09-08] MEDS ORDERED: LEVEMIR FLEXTOUCH 100 UNIT/ML INSULIN PEN SQ SCH (10:00)
[2018-09-08] MEDS: BREO (FLUTICASONE/VILANTEROL) 200MCG/25MCG INHALER INH SCH (10:28)
[2018-09-08] MEDS: NOVOLOG FLEXPEN (INSULIN ASPART) 100 UNITS/ML SQ SCH ×3 (11:16→22:50)
[2018-09-08] MEDS: SPIRONOLACTONE 25 MG TAB PO SCH ×2 (11:22→22:17)
[2018-09-08] MEDS: BUMETANIDE IV 0.25 MG/ML VIAL IVP SCH ×2 (11:22→15:25)
[2018-09-08] MEDS: ATORVASTATIN 20 MG TABLET PO SCH (11:23)
[2018-09-08] MEDS: AMLODIPINE BESYLATE 5MG TAB PO SCH (11:24)
[2018-09-08] MEDS: HYDRALAZINE PO SCH ×3 (11:25→22:20)
[2018-09-08] MEDS: [UNRECOGNIZED DRUG - OTHER] PO SCH ×3 (11:25→22:20)
[2018-09-08] MEDS: CLOPIDOGREL 75MG TABLET PO SCH (11:26)
[2018-09-08] MEDS: MINOXIDIL 2.5 MG PO SCH ×2 (11:26→22:19)
[2018-09-08] MEDS: ROPINIROLE HCL 1 MG TABLET PO SCH ×2 (11:27→22:18)
[2018-09-08] MEDS: LEVOTHYROXINE SODIUM 100 MCG TABLET PO SCH (11:28)
[2018-09-08] MEDS: LEVOTHYROXINE SODIUM 75 MCG TABLET PO SCH (11:28)
[2018-09-08] MEDS: BACLOFEN 10 MG TABLET PO PRN (13:35)
[2018-09-08] MEDS: LOSARTAN POTASSIUM 25 MG TABLET PO SCH (16:45)
[2018-09-08] MEDS: ASPIRIN 81 MG TABEC PO SCH (22:17)
[2018-09-08] MEDS: MONTELUKAST SODIUM 10MG TABLET PO SCH (22:18)
[2018-09-08] MEDS: ACETAMINOPHEN 500 MG TABLET PO SCH (22:18)
[2018-09-08] MEDS: LEVEMIR FLEXTOUCH 100 UNIT/ML INSULIN PEN SQ SCH (22:50)
[2018-09-09] MEDS: ACETAMINOPHEN 500 MG TABLET PO PRN ×2 (05:32→16:58)
[2018-09-09] MEDS: BENZONATATE 100 MG CAPSULE PO PRN ×2 (05:32→16:57)
[2018-09-09] MEDS: BACLOFEN 10 MG TABLET PO PRN ×2 (06:04→12:05)
[2018-09-09] MEDS: LEVOTHYROXINE SODIUM 75 MCG TABLET PO SCH (06:04)
[2018-09-09] MEDS: LEVOTHYROXINE SODIUM 100 MCG TABLET PO SCH (06:04)
[2018-09-09] MEDS: NOVOLOG FLEXPEN (INSULIN ASPART) 100 UNITS/ML SQ SCH ×4 (08:18→23:22)
[2018-09-09] MEDS: BREO (FLUTICASONE/VILANTEROL) 200MCG/25MCG INHALER INH SCH (09:30)
[2018-09-09] MEDS: MORPHINE SULFATE 15 MG TABLET.ER PO SCH ×2 (09:31→21:51)
[2018-09-09] MEDS: ROPINIROLE HCL 1 MG TABLET PO SCH ×2 (09:31→21:51)
[2018-09-09] MEDS: ATORVASTATIN 20 MG TABLET PO SCH (09:32)
[2018-09-09] MEDS: LOSARTAN POTASSIUM 25 MG TABLET PO SCH (09:33)
[2018-09-09] MEDS: AMLODIPINE BESYLATE 5MG TAB PO SCH (09:33)
[2018-09-09] MEDS: CLOPIDOGREL 75MG TABLET PO SCH (09:34)
[2018-09-09] MEDS: HYDRALAZINE PO SCH ×3 (09:35→21:53)
[2018-09-09] MEDS: [UNRECOGNIZED DRUG - OTHER] PO SCH ×3 (09:35→21:53)
[2018-09-09] MEDS: MINOXIDIL 2.5 MG PO SCH ×2 (09:35→21:53)
[2018-09-09] MEDS: SPIRONOLACTONE 25 MG TAB PO SCH ×2 (09:37→21:51)
[2018-09-09] MEDS ORDERED: BUMETANIDE IV 0.25 MG/ML VIAL IVP ONE (10:00)
--- NOTE | 2018-09-09 12:39 | Cardiology Consult ---
DATE OF CONSULTATION: 09/08/2018 HISTORY OF PRESENT ILLNESS: The patient is a 78-year-old female with past medical history of heart failure with preserved ejection fraction, coronary artery disease, status post PCI of the RCA and left main arteries in July 2016 , type 2 diabetes mellitus, hyperlipidemia, hypertension, renal artery stenosis , status post previous stenting, and recurrent DVTs and PEs, status post IVC filter. She has been hospitalized with complaint of worsening shortness of breath and cough. Blood pressure on admission was elevated at 199/80 mmHg. Chest x-ray suggested bilateral interstitial infiltrates concerning for CHF. BNP was elevated at 2200. She has been started on Bumex 1 mg IV b.i.d. and has been diuresing well. Blood pressure has improved to 155/41 mmHg this morning. Cardiology has been consulted for further management of CHF and hypertension. She reports medication compliance. She also reports monitoring daily weights and has not had any weight gain greater than 2 pounds in 24 hours over the last couple of weeks. She also reports strict sodium and fluid restriction. The patient last had an echocardiogram on 02/12/2018 which demonstrates preserved LVEF of 55% to 60% with grade 3 diastolic dysfunction, mild LVH, moderate left atrial dilation, elevated RVSP of 46 mmHg, mild AR, and moderate MR. Echocardiogram this admission demonstrates preserved LVEF of 55% to 60% with grade 3 diastolic dysfunction, mild LVH, aortic valve sclerosis with mild stenosis, mild aortic valve insufficiency, mild TR, and RVSP of 45 mmHg. When she was last hospitalized for CHF in April 2018, she underwent renal angiography secondary to persistently elevated blood pressure. Both renal artery stents were patent but she did have a 40% to 50% in-stent restenosis of one of the stents. She follows with Dr. Jeff and was last seen in the office in May and was doing well. ALLERGIES: Please see patient allergies in EMR. CARDIAC MEDICATIONS: 1. Amlodipine 10 mg daily. 2. Aspirin 81 mg daily. 3. Atorvastatin 40 mg daily. 4. Bumex 1 mg IV b.i.d. 5. Plavix 75 mg daily. 6. Isosorbide dinitrate/hydralazine 20/37 mg t.i.d. 7. Minoxidil 2.5 mg b.i.d. 8. Aldactone 25 mg b.i.d. PAST MEDICAL HISTORY: Heart failure with preserved ejection fraction, coronary artery disease, type 2 diabetes mellitus, hypertension, hyperlipidemia, renal artery stenosis, status post stenting, DVT/PE, status post IVC filter. SOCIAL HISTORY: Former tobacco use. FAMILY HISTORY: CAD and CVA. REVIEW OF SYSTEMS: Constitutional: Reports fatigue. Denies fever, chills, sweats , lightheadedness, dizziness, and syncope. Eyes: No recent visual problems. ENMT : No ear pain, nasal congestion, sore throat. Respiratory: Reports shortness of breath and cough. Cardiovascular: No chest pain, palpitations, PND, orthopnea, or syncope. Peripheral Vascular: No peripheral edema or claudication. Gastrointestinal: No nausea, vomiting, diarrhea. Musculoskeletal: No back pain, neck pain, joint pain, muscle pain, decreased range of motion. Integument: No rash, pruritus, abrasions. Neurological: Alert and oriented. Psychiatric: No anxiety or depression. PHYSICAL EXAMINATION: VITAL SIGNS: Temperature 98.0 degrees Fahrenheit, heart rate 83 beats per minute, blood pressure 136/30 mmHg, respiratory rate 16 per minute, and oxygen saturation 96% on room air. GENERAL: Alert and oriented. Well nourished. No acute distress. HEAD: Normocephalic and atraumatic. EENT: EOMI, PERRL. No scleral icterus, erythema. Throat free from erythema, lesions. NECK: Supple. Nontender. No carotid bruits. No JVD. RESPIRATORY: Clear to auscultation. Unlabored respiration. No wheezing, rhonchi, rales. CARDIAC: Regular rate and rhythm. Grade 1/6 systolic ejection murmur. PERIPHERAL VASCULAR : Trace peripheral edema. No cyanosis or clubbing. Peripheral pulses 2+ and symmetric. ABDOMEN: Obese, soft, nontender, nondistended. Normal bowel sounds. SKIN: Warm, dry, and pink. No rashes or lesions. MUSCULOSKELETAL: Normal range of motion of all 4 extremities. Normal gait. NEUROLOGIC: Awake, alert, and oriented x3. PSYCHIATRIC: Cooperative. Appropriate mood and affect. LABORATORY DATA: Please see daily labs including CBC, BMP, troponin which was negative x3, proBNP which was 2200. IMAGING: Chest x-ray suggested interstitial bilateral infiltrates. Echocardiogram 09/08/2018 with preserved LVEF of 55% to 60% with grade 1 left ventricular diastolic dysfunction, mild LVH, aortic valve sclerosis with mild stenosis, mild aortic valve insufficiency, mild TR, and RVSP of 45 mmHg. Renal ultrasound on 05/09/2018 with bilateral stenosis less than 60%. Renal angiography 05/12/2018 with patent left renal artery stent with mild in-stent restenosis, patent right renal stent with 40% to 50% in-stent restenosis. Carotid ultrasound 02/21/2018 with 50% to 69% stenosis bilaterally. ASSESSMENT AND PLAN: 1. Hypertensive urgency. 2. Acute exacerbation of heart failure with preserved ejection fraction. 3. Renal artery stenosis, status post stenting. 4. Coronary artery disease, status post PCI of the left main RCA in July 2016. The patient is a 78-year-old female with past medical history of heart failure with preserved ejection fraction, CAD, status post PCI of the RCA and left main arteries in July 2016, type 2 diabetes mellitus, hyperlipidemia, hypertension, renal artery stenosis, status post stenting, also recurrent DVTs and PEs, status post IVC filter. She has been hospitalized with complaint of worsening shortness of breath over the last couple of weeks. Her blood pressure was found to be significantly elevated on admission at 199/80 mmHg. Chest x-ray also suggested some bilateral interstitial infiltrates concerning for CHF. BNP was elevated at 2200. Echocardiogram this admission is similar to prior with preserved LVEF of 55% to 60% with grade 1 diastolic dysfunction and mild LVH. RVSP is elevated 45 mmHg. The patient reports good medication compliance and denies any significant weight gain more than 2 pounds in a 24-hour period. The patient has been diuresed adequately with Bumex 1 mg IV b.i.d. and is feeling better. Her lungs are clear to auscultation and she has no significant peripheral edema. Her blood pressure is better today at 155/41 mmHg but continues to fluctuate. At this time, we will decrease the diuretics to Bumex 1 mg IV daily. On Saturday, could consider starting p.o. Bumex 1 mg daily. We will continue with amlodipine 10 mg daily, BiDil 20/37.5 mg t.i.d., minoxidil 2.5 mg b.i.d., Aldactone 25 mg daily. We will resume home dose of losartan 50 mg daily. Can consider trying a beta-gus again in the future. The patient has an appointment with a hypertensive specialist at the [facility] coming up in November. Also continue with dual antiplatelet therapy of aspirin and Plavix given recent PCI. She will need to be seen in followup by Dr. Jeff in our clinic within 3-4 weeks after discharge. CHAVO
[2018-09-09] MEDS: AZITHROMYCIN 250 MG TABLET PO SCH (14:20)
[2018-09-09] MEDS ORDERED: ONDANSETRON HCL IV 4 MG/2 ML VIAL IVP PRN (17:15)
[2018-09-09] MEDS: MONTELUKAST SODIUM 10MG TABLET PO SCH (21:51)
[2018-09-09] MEDS: ACETAMINOPHEN 500 MG TABLET PO SCH (21:52)
[2018-09-09] MEDS: ASPIRIN 81 MG TABEC PO SCH (21:52)
[2018-09-09] MEDS: IPRATROPIUM/ALBUTEROL (0.5MG/3MG) NEB INH PRN (22:07)
[2018-09-09] MEDS: LEVEMIR FLEXTOUCH 100 UNIT/ML INSULIN PEN SQ SCH (23:23)
[2018-09-10] MEDS: ACETAMINOPHEN 500 MG TABLET PO PRN (06:01)
[2018-09-10] MEDS: LEVOTHYROXINE SODIUM 100 MCG TABLET PO SCH (06:02)
[2018-09-10] MEDS: LEVOTHYROXINE SODIUM 75 MCG TABLET PO SCH (06:02)
[2018-09-10] MEDS ORDERED: ALPRAZOLAM 0.25 MG TABLET PO PRN (06:33)
--- NOTE | 2018-09-10 07:20 | Discharge Note ---
VTE H&P Assessment - Risk for VTE Risk for VTE: Yes Risk Level: Moderate Risk Assessment Date: 09/08/18 Risk Assessment Time: 09:52 VTE Orders Placed or Will Be Placed: Yes Discharge Medications - Discharge Medications Home Medications: Ambulatory Orders Budesonide/Formoterol Fumarate [Symbicort 160-4.5 Mcg Inhaler] 2 puff IH BID [Last Taken 02/20/18] Insulin Glargine,Hum.rec.anlog [Lantus Solostar] 40 units SQ QAM 05/01/14 [Last Taken 02/20/18] Montelukast Sodium [Singulair] 10 mg PO QHS 05/24/16 [Last Taken 02/19/18] Albuterol Sulfate [Ventolin Hfa] 2 puff IH ASDIR 05/21/17 [Last Taken 02/19/18] Aspirin [Aspirin EC] 81 mg PO QHS 05/21/17 [Last Taken 02/19/18] Acetaminophen [Tylenol 500Mg Tab] 1,000 mg PO QHS 02/20/18 [Last Taken Unknown] Bumetanide 1 tab PO DAILY 90 Days #90 tab 04/24/18 [Last Taken 09/07/18] Albuterol Sulfate 0.083% [Neb] [Albuterol Sulfate] 3 ml NEB .EVERY 4-6 HOURS PRN 09/07/18 [Last Taken Unknown] Amlodipine Besylate [Norvasc] 10 mg PO DAILY 09/07/18 [Last Taken 09/07/18] Guanfacine HCl [Guanfacine HCl ER] 1 mg PO DAILY 09/07/18 [Last Taken Unknown] Isosorbibe Dinit/Hydralazine [Bidil Tablet] 1 each PO TID 09/07/18 [Last Taken 09/07/18] Losartan Potassium 50 mg PO BID 09/07/18 [Last Taken 09/07/18] Minoxidil 2.5 mg PO BID 09/07/18 [Last Taken 09/07/18] Morphine Sulfate [Morphine Sulfate ER] 15 mg PO BID 09/07/18 [Last Taken Unknown ] Spironolactone 25 mg PO BID 09/07/18 [Last Taken 09/07/18] Discharge Note - Date Date of Discharge Note: 09/10/18 Condition: (2) Stable Forms: Patient Portal Access
[2018-09-10] MEDS ORDERED: METHYLPREDNISOLONE SOD 40MG/VIAL IVP ONE (08:14)
[2018-09-10] MEDS: NOVOLOG FLEXPEN (INSULIN ASPART) 100 UNITS/ML SQ SCH ×4 (09:40→21:46)
[2018-09-10] MEDS: ROPINIROLE HCL 1 MG TABLET PO SCH ×2 (09:47→21:42)
[2018-09-10] MEDS: AZITHROMYCIN 250 MG TABLET PO SCH (09:48)
[2018-09-10] MEDS: AMLODIPINE BESYLATE 5MG TAB PO SCH (09:48)
[2018-09-10] MEDS: BENZONATATE 100 MG CAPSULE PO PRN (09:48)
[2018-09-10] MEDS: BUMETANIDE 1 MG TABLET PO SCH (09:49)
[2018-09-10] MEDS: SPIRONOLACTONE 25 MG TAB PO SCH ×2 (09:50→21:39)
[2018-09-10] MEDS: LOSARTAN POTASSIUM 25 MG TABLET PO SCH (09:50)
[2018-09-10] MEDS: BACLOFEN 10 MG TABLET PO PRN ×2 (09:50→21:44)
[2018-09-10] MEDS: ATORVASTATIN 20 MG TABLET PO SCH (09:51)
[2018-09-10] MEDS: CLOPIDOGREL 75MG TABLET PO SCH (09:51)
[2018-09-10] MEDS: MORPHINE SULFATE 15 MG TABLET.ER PO SCH ×2 (09:51→21:41)
[2018-09-10] MEDS: [UNRECOGNIZED DRUG - OTHER] PO SCH ×3 (09:52→21:40)
[2018-09-10] MEDS: ENOXAPARIN 40 MG/0.4 ML SYR SQ SCH (09:52)
[2018-09-10] MEDS: HYDRALAZINE PO SCH ×3 (09:52→21:40)
[2018-09-10] MEDS: MINOXIDIL 2.5 MG PO SCH ×2 (09:53→21:39)
[2018-09-10] MEDS: BREO (FLUTICASONE/VILANTEROL) 200MCG/25MCG INHALER INH SCH (10:07)
[2018-09-10] MEDS ORDERED: PREDNISONE 20 MG TAB PO ONE (18:50)
[2018-09-10] MEDS: ACETAMINOPHEN 500 MG TABLET PO SCH (21:40)
[2018-09-10] MEDS: MONTELUKAST SODIUM 10MG TABLET PO SCH (21:42)
[2018-09-10] MEDS: ASPIRIN 81 MG TABEC PO SCH (21:42)
[2018-09-10] MEDS: LEVEMIR FLEXTOUCH 100 UNIT/ML INSULIN PEN SQ SCH (21:44)
[2018-09-11] MEDS: ACETAMINOPHEN 500 MG TABLET PO PRN ×2 (03:04→15:03)
[2018-09-11] MEDS: BACLOFEN 10 MG TABLET PO PRN (06:20)
[2018-09-11] MEDS: LEVOTHYROXINE SODIUM 100 MCG TABLET PO SCH (06:20)
[2018-09-11] MEDS: LEVOTHYROXINE SODIUM 75 MCG TABLET PO SCH (06:20)
[2018-09-11] MEDS: PREDNISONE 20 MG TAB PO SCH ×2 (07:55→18:01)
[2018-09-11] MEDS: MORPHINE SULFATE 15 MG TABLET.ER PO SCH ×2 (07:55→10:49)
--- NOTE | 2018-09-11 09:29 | CT ANGIOGRAM REPORT ---
EXAM: CT ANGIOGRAM OF THE HEAD AND NECK HISTORY: FALL, HEAD INJURY. TECHNIQUE: CT angiogram of the head and neck were performed with 80 ml Omnipaque 350 intravenous contrast. Additional 3D rendered and maximum intensity projection images created on an independent workstation. All internal carotid percent stenoses are calculated using the distal internal carotid artery diameter as the denominator per NASCET criteria. Comparison: CT of the brain 11/09/17. FINDINGS: The aortic arch is only partially visualized, there are atherosclerotic calcifications. The origins of the great vessels at the aortic arch are partially imaged. The brachiocephalic trunk is atherosclerotic and ectatic. Calcification throughout both subclavian arteries without evidence of focal high grade stenosis. Atherosclerotic calcification diffusely along the course of both common carotid arteries. No focal high grade stenosis. Calcified plaque at the origin of both internal carotid arteries with less than 50% stenosis bilaterally. There is up to approximately 20% stenosis of the proximal right internal carotid artery. There is up to approximately 40% stenosis at the origin of the left internal carotid. Calcified plaque at the origin of both external carotid arteries without high grade stenosis. Calcified plaque involving the petrous, cavernous, and supraclinoid segments of both intracranial internal carotid arteries with areas of likely mild luminal narrowing. Both anterior cerebral arteries appear patent. Both middle cerebral arteries appear patent. Both posterior cerebral arteries are patent. Calcified plaque at the origin of both vertebral arteries, left side dominant vertebral arteries. Both vertebral arteries are patent through the neck. Calcification of the left vertebral artery at the level of the foramen magnum with likely mild stenosis. The basilar artery is patent. No intracranial aneurysm detected. No evidence of avascular malformation. The visualized upper lungs are clear. Mild mucosal thickening in the right maxillary sinus and ethmoid air cells. Limited assessment of the brain on CTA protocol study. Evidence of cerebral volume loss and small vessel ischemic white matter change. Multilevel degenerative changes in the cervical spine with bulging disks at multiple levels. IMPRESSION: 1. BILATERAL CAROTID ATHEROSCLEROSIS WITH LESS THAN 50% STENOSIS OF THE PROXIMAL INTERNAL CAROTID ARTERIES BILATERALLY. 2. CALCIFIED PLAQUE AT THE ORIGINS OF BOTH VERTEBRAL ARTERIES AND WITHIN THE LEFT VERTEBRAL ARTERY AT THE LEVEL OF THE FORAMEN MAGNUM. 3. NO EVIDENCE OF INTRACRANIAL ARTERIAL OCCLUSION OR HEMODYNAMICALLY SIGNIFICANT STENOSIS. JOB NUMBER: [id number] AND [id number] [facility]
--- NOTE | 2018-09-11 09:34 | RADIOLOGY REPORT ---
EXAM: RIGHT ANKLE HISTORY: FALL. ANKLE PAIN. TECHNIQUE: Two views of the right ankle were obtained. Comparison: None. FINDINGS: No definite lucent fracture line or appreciable dislocation. Degenerative findings of the tibiotalar joint, talonavicular joint, and mid foot joints. Plantar calcaneal enthesophyte. Extensive vascular calcifications. IMPRESSION: ABOVE. JOB NUMBER: [id number] [facility]
[2018-09-11] MEDS: ENOXAPARIN 40 MG/0.4 ML SYR SQ SCH (09:36)
--- NOTE | 2018-09-11 09:36 | RADIOLOGY REPORT ---
EXAM: RIGHT SHOULDER HISTORY: FALL, SHOULDER PAIN. TECHNIQUE: Three views of the right shoulder were obtained. Comparison: Left shoulder radiograph 09/11/18. FINDINGS: This exam is limited by decreased range of motion on frontal views. No definite fracture is seen. No evidence of dislocation. Mild acromioclavicular joint arthrosis. Possible glenohumeral arthrosis, not well seen. IMPRESSION: NO DEFINITE ACUTE OSSEOUS FINDINGS. JOB NUMBER: [id number] [facility]
[2018-09-11] MEDS: ROPINIROLE HCL 1 MG TABLET PO SCH (09:37)
[2018-09-11] MEDS: AZITHROMYCIN 250 MG TABLET PO SCH (09:37)
[2018-09-11] MEDS: LOSARTAN POTASSIUM 25 MG TABLET PO SCH (09:37)
[2018-09-11] MEDS: ATORVASTATIN 20 MG TABLET PO SCH (09:38)
[2018-09-11] MEDS: CLOPIDOGREL 75MG TABLET PO SCH (09:38)
[2018-09-11] MEDS: BUMETANIDE 1 MG TABLET PO SCH (09:38)
[2018-09-11] MEDS: AMLODIPINE BESYLATE 5MG TAB PO SCH (09:39)
[2018-09-11] MEDS: NOVOLOG FLEXPEN (INSULIN ASPART) 100 UNITS/ML SQ SCH ×3 (09:40→17:47)
--- NOTE | 2018-09-11 09:40 | RADIOLOGY REPORT ---
EXAM: LEFT SHOULDER HISTORY: FALL, SHOULDER PAIN. TECHNIQUE: Three views of the left shoulder were obtained. Comparison: Same day right shoulder radiographs. FINDINGS: No lucent fracture line visualized. No evidence of dislocation. Glenohumeral arthrosis with joint space narrowing and inferior osteophytes. Suggestion of a small 2 mm calcified body near the posterior humeral head. Mild to moderate acromioclavicular joint arthrosis. IMPRESSION: 1. NO ACUTE OSSEOUS FINDINGS. 2. DEGENERATIVE CHANGES OF THE SHOULDER. [facility]: [id number] [facility]
[2018-09-11] MEDS: SPIRONOLACTONE 25 MG TAB PO SCH (09:42)
[2018-09-11] MEDS: BREO (FLUTICASONE/VILANTEROL) 200MCG/25MCG INHALER INH SCH (09:45)
[2018-09-11] MEDS: HYDRALAZINE PO SCH ×2 (11:01→16:29)
[2018-09-11] MEDS: MINOXIDIL 2.5 MG PO SCH (11:01)
[2018-09-11] MEDS: [UNRECOGNIZED DRUG - OTHER] PO SCH ×2 (11:01→16:29)
--- NOTE | 2018-09-11 17:27 | Discharge Note ---
VTE H&P Assessment - Risk for VTE Risk for VTE: Yes Risk Level: Moderate Risk Assessment Date: 09/08/18 Risk Assessment Time: 09:52 VTE Orders Placed or Will Be Placed: Yes Discharge Medications - Discharge Medications Prescriptions: Azithromycin [Zithromax] 250 mg PO DAILY #6 tab Benzonatate [Tessalon Perles] 100 mg PO TID PRN #30 capsule PRN Reason: Cough Bumetanide [Bumex] 0.5 mg PO DAILY #30 tablet Prednisone [Prednisone 10Mg] 10 mg PO ASDIR #30 tab Home Medications: Ambulatory Orders Budesonide/Formoterol Fumarate [Symbicort 160-4.5 Mcg Inhaler] 2 puff IH BID [Last Taken 02/20/18] Insulin Glargine,Hum.rec.anlog [Lantus Solostar] 40 units SQ QAM 05/01/14 [Last Taken 02/20/18] Montelukast Sodium [Singulair] 10 mg PO QHS 05/24/16 [Last Taken 02/19/18] Albuterol Sulfate [Ventolin Hfa] 2 puff IH ASDIR 05/21/17 [Last Taken 02/19/18] Aspirin [Aspirin EC] 81 mg PO QHS 05/21/17 [Last Taken 02/19/18] Acetaminophen [Tylenol 500Mg Tab] 1,000 mg PO QHS 02/20/18 [Last Taken Unknown] Bumetanide 1 tab PO DAILY 90 Days #90 tab 04/24/18 [Last Taken 09/07/18] Albuterol Sulfate 0.083% [Neb] [Albuterol Sulfate] 3 ml NEB .EVERY 4-6 HOURS PRN 09/07/18 [Last Taken Unknown] Amlodipine Besylate [Norvasc] 10 mg PO DAILY 09/07/18 [Last Taken 09/07/18] Guanfacine HCl [Guanfacine HCl ER] 1 mg PO DAILY 09/07/18 [Last Taken Unknown] Isosorbibe Dinit/Hydralazine [Bidil Tablet] 1 each PO TID 09/07/18 [Last Taken 09/07/18] Losartan Potassium 50 mg PO BID 09/07/18 [Last Taken 09/07/18] Minoxidil 2.5 mg PO BID 09/07/18 [Last Taken 09/07/18] Morphine Sulfate [Morphine Sulfate ER] 15 mg PO BID 09/07/18 [Last Taken Unknown ] Spironolactone 25 mg PO BID 09/07/18 [Last Taken 09/07/18] Azithromycin [Zithromax] 250 mg PO DAILY #6 tab 09/11/18 [Last Taken Unknown] Benzonatate [Tessalon Perles] 100 mg PO TID PRN #30 capsule 09/11/18 [Last Taken Unknown] Bumetanide [Bumex] 0.5 mg PO DAILY #30 tablet 09/11/18 [Last Taken Unknown] Prednisone [Prednisone 10Mg] 10 mg PO ASDIR #30 tab 09/11/18 [Last Taken Unknown ] Discharge Note - Date Date of Discharge Note: 09/11/18 Disposition: Home, Self-Care Condition: (2) Stable Additional Instructions: follow up with Dr Berumen in one week Prescriptions: Azithromycin [Zithromax] 250 mg PO DAILY #6 tab Benzonatate [Tessalon Perles] 100 mg PO TID PRN #30 capsule PRN Reason: Cough Bumetanide [Bumex] 0.5 mg PO DAILY #30 tablet Prednisone [Prednisone 10Mg] 10 mg PO ASDIR #30 tab Referrals: CRISTINO BERUMEN [Primary Care Provider] - Forms: Patient Portal Access Diet at Discharge: Low Salt Diet
--- NOTE | 2018-09-12 07:25 | CT SCAN REPORT ---
EXAM: NONCONTRAST CT OF THE BRAIN HISTORY: FALL, RIGHT SIDED HEAD INJURY. TECHNIQUE: Noncontrast CT of the brain was obtained. Comparison: CT of the brain 11/09/17. FINDINGS: No midline shift, mass effect or abnormal intra or extraaxial fluid collection. No cerebral edema, focal mass or intracranial hemorrhage detected. Areas of confluent white matter hypoattenuation likely represents small vessel ischemic white matter changes and areas of cerebral volume loss, similar from prior. No evidence of displaced calvarial fracture. The visualized paranasal sinuses are not significantly opacified with the exception of mild mucosal thickening within the right maxillary sinus. IMPRESSION: 1. NO ACUTE INTRACRANIAL FINDINGS. 2. STABLE CHRONIC FINDINGS INCLUDING AGE RELATED CEREBRAL VOLUME LOSS AND PROBABLE SMALL VESSEL ISCHEMIC WHITE MATTER CHANGES. JOB NUMBER: [id number] [facility]
--- NOTE | 2018-09-12 07:34 | CT SCAN REPORT ---
EXAM: NONCONTRAST CT OF THE CERVICAL SPINE HISTORY: FALL, NECK PAIN. TECHNIQUE: Noncontrast CT of the cervical spine was obtained. Comparison: None. FINDINGS: Diffuse osteopenia. No acute fracture is seen. No evidence of dislocation. Partially mineralized disk bulge is noted at C3-C4 and C5-C6. Multilevel facet joint arthrosis. No appreciable high grade central spinal canal stenosis. IMPRESSION: 1. NO ACUTE CERVICAL SPINE FRACTURE OR DISLOCATION IS DETECTED. 2. DEGENERATIVE CHANGES OF THE CERVICAL SPINE. J[facility]BER: [id number] [facility]
--- NOTE | 2018-09-12 10:10 | Discharge Summary ---
DISCHARGE DIAGNOSES: 1. Acute bronchitis. 2. Acute exacerbation of chronic obstructive pulmonary disease. 3. Diastolic congestive heart failure, improving. 4. Fall with contusion of the head, both shoulders, and right ankle on the day of discharge. CT of the head and neck negative. Ankle and shoulders were negative for fractures. 5. Diabetes mellitus type 2. 6. Hypertension. 7. Renal artery stenosis. 8. Hypothyroidism. 9. Neuropathy of the legs. ATTENDING PHYSICIAN: Pritesh Lebron DO. REASON FOR HOSPITALIZATION: Dyspnea and short of breath and coughing for 3 days prior to coming to the hospital with discolored sputum. She was evaluated in the emergency department, admitted to the hospital for CHF and further evaluation of her possible heart problem by Dr. Arce. Dr. Jeff is her town marshal. She was seen in the [place] [place] and sent to the emergency department for further evaluation. She was admitted with a diagnosis of CHF, cough. Significant findings from examination: Cardiology consult was obtained, and their recommendation was to continue to diurese her gently because of her diastolic heart failure. Her ejection fraction on her echocardiogram was 55-60%, done on 09/08/2018. Her cough evolved into a hoarse voice, productive sputum, and it was more infectious bronchitis, COPD exacerbation than CHF. She was started on azithromycin antibiotic and IV Solu-Medrol, switched over to oral prednisone, and continued with oxygen and breathing treatment as needed, Alexandre Tarqi. She was given IV Bumex and switched over to oral Bumex. Therapy provided antibiotics, oxygen, cautious diuresis. HOSPITAL COURSE: Patient gradually improved. However, on the day of discharge, she fell down with headache, bruising to her head, neck, shoulders, and right ankle. X-rays were all negative. CT of the head and neck was negative. She is using Tylenol and her chronic morphine for her pain. DISCHARGE INSTRUCTIONS: Follow up with Dr. Barron in 1 week. Continue azithromycin 250 mg a day for 6 days. Prednisone taper starting at 40 mg a day for 3 days and 30 mg a day for 3 days, 20 mg a day for 3 days, then 10 mg a day for 3 days. Tylenol and her chronic MS Contin for her pain, headache and right ankle pain and her chronic back pain. Any problems, return to the emergency department for further evaluation. CC: Dr. Anderson TONY
== END 2018-09-11 18:00 | disposition home or self-care (01) | DRG 293 ==
LOC: ER 09:58 → MEDSURG 12:15
PROVIDERS: ADMIT Internal Medicine; ATTEND Emergency Medicine
DX: I50.9 Heart failure, unspecified (principal); J40 Bronchitis, not specified as acute or chronic; R05 Cough; I25.2 Old myocardial infarction; I25.10 Atherosclerotic heart disease of native coronary artery without angina pectoris; E11.9 Type 2 diabetes mellitus without complications; E03.9 Hypothyroidism, unspecified; J45.909 Unspecified asthma, uncomplicated; R60.9 Edema, unspecified; M19.90 Unspecified osteoarthritis, unspecified site; M79.7 Fibromyalgia; Z90.49 Acquired absence of other specified parts of digestive tract; Z87.891 Personal history of nicotine dependence; Z98.61 Coronary angioplasty status; Z95.5 Presence of coronary angioplasty implant and graft; Z85.828 Personal history of other malignant neoplasm of skin; Z86.73 Personal history of transient ischemic attack (TIA), and cerebral infarction without residual deficits; Z86.711 Personal history of pulmonary embolism; Z87.442 Personal history of urinary calculi; Z79.4 Long term (current) use of insulin; Z79.01 Long term (current) use of anticoagulants; S00.93XA Contusion of unspecified part of head, initial encounter; S40.012A Contusion of left shoulder, initial encounter; S40.011A Contusion of right shoulder, initial encounter; S90.01XA Contusion of right ankle, initial encounter
CPT/HCPCS: 36416; 70450; 70496; 70498; 71045; 72125; 80053; 82947; 82948; 83735; 83880; 84484; 85025; 85610; 85730; 87400; 90670; 93005; 93010; 93306; 94640; 94760; 94761; 96374; 99223; 99233; 99239; 99285; J1650; J2405; J2920; J7512; J7613